=== PATIENT | male | born 1965 | race Caucasian/White ===

== ENCOUNTER 2017-10-24 14:34 | Emergency (ER) | payer OTHER ==
[2017-10-24 14:35] VITALS: PULSE 81; BMI 25.9
[2017-10-24 14:46] VITALS: BP 120/62; PULSE 76; RESP 16; TEMP 98.8; O2SAT 99
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
--- NOTE | 2017-10-24 17:49 | CT ---
PROCEDURE: CT HEAD WITHOUT CONTRAST. HISTORY: head injury r/o ich COMPARISON: None available. TECHNIQUE: Axial computed tomography images were obtained through the head/brain without intravenous contrast. Radiation dose: Total exam DLP = 793.90 mGy-cm. This CT exam was performed using one or more of the following dose reduction techniques: Automated exposure control, adjustment of the mA and/or kV according to patient size, and/or use of iterative reconstruction technique. FINDINGS: HEMORRHAGE: No intracranial hemorrhage. BRAIN: No mass effect or edema. Intracranial atherosclerosis. The menezes-white matter differentiation appears intact. Please note that MRI with diffusion imaging is more sensitive in the detection of acute ischemic event. VENTRICLES: No hydrocephalus. CALVARIUM: Unremarkable. PARANASAL SINUSES: Unremarkable as visualized. No significant inflammatory changes. MASTOID AIR CELLS: Unremarkable as visualized. No inflammatory changes. OTHER FINDINGS: None. IMPRESSION: No acute intracranial pathology identified.
== END 2017-10-24 18:03 | disposition home or self-care (01) ==
LOC: ED 14:34
DX: S09.90XA Unspecified injury of head, initial encounter (principal); V49.9XXA Car occupant (driver) (passenger) injured in unspecified traffic accident, initial encounter; E11.9 Type 2 diabetes mellitus without complications; J44.9 Chronic obstructive pulmonary disease, unspecified; Z95.0 Presence of cardiac pacemaker; Z87.891 Personal history of nicotine dependence

== ENCOUNTER 2017-11-19 17:34 | Inpatient (IN) | payer OTHER ==
[2017-11-19 17:41] VITALS: BMI 27.4
[2017-11-19] MEDS ORDERED: Magnesium Sulfate 1 gm in D5W 1 GM/100 ML BAG IVPB ONE (17:46)
--- NOTE | 2017-11-19 17:52 | ED PDOC ---
Arrival/HPI - General Chief Complaint: Shortness Of Breath Time Seen by Provider: 11/19/17 17:37 Historian: Patient, Spouse - History of Present Illness Narrative History of Present Illness (Text): 11/19/17 1749 pt p/w + sudden onset of sob/wheezing, extremely fatigued/tired; pt was found by spouse just prior to ED arrival with profuse sweating/rapid breathing and poor skin discoloration; pt awoke this morning with some weakness; states this afternoon with sudden onset of severe sob/wheezing; pt has had similar symptoms in the past; pt also noted b/l leg swelling, over the last 1-2 weeks; no fever/ chills, no cp/palpitations, no abd pain, no n/v, no numbness/tingling, no urinary/bowel changes, no rashes, no fall/trauma/sick contact, no travel; pt is here for further eval; pt's without other complaints. PCP: Dr Vickers cardiac disorder - 5 vessel bypass; valve replacement aicd/pacemaker pt had been intubated in the past Time/Duration: Prior to Arrival Symptom Onset: Sudden Symptom Course: Worsening Quality: Other (NO PAIN) Severity Level: Severe Activities at Onset: Rest Context: Home Past Medical History - Provider Review Nursing Documentation Reviewed: Yes - Travel History Have you recently traveled outside [place] w/in the past 3 mons?: No - Past History Past History: No Previous - Infectious Disease Hx of Infectious Diseases: None - Reproductive Currently Lactating: No - Cardiac Hx Cardiac Disorders: Yes Hx Pacemaker: Yes - Pulmonary Hx Respiratory Disorders: Yes Hx Asthma: No Hx Bronchitis: No Hx Chronic Obstructive Pulmonary Disease (COPD): Yes Hx Emphysema: No Hx Pneumonia: Yes Hx Respiratory Aspiration: No Hx Sleep Apnea: No Hx Tuberculosis: No - Neurological Hx Neurological Disorder: No Hx Alzheimer's Disease: No HX Cerebrovascular Accident: No Hx Dementia: No Hx Dizziness: No Hx Meningitis: No Hx Migraine: No Hx Parkinson's Disease: No Hx Seizures: No Hx Transient Ischemic Attacks (TIA): No - HEENT Hx HEENT Disorder: No Hx Blind: No Hx Cataracts: No Hx Deafness: No Hx Difficulty Chewing: No Hx Epistaxis: No Hx Glaucoma: No Hx Macular Degeneration: No - Renal Hx Dialysis: No Hx Kidney Stones: No Hx Neurogenic Bladder: No Hx Pyelonephritis: No Hx Renal Cancer: No Hx Renal Failure: No - Endocrine/Metabolic Hx Endocrine Disorders: Yes Hx Adrenal Cancer: No Hx Diabetes Insipidus: No Hx Diabetes Mellitus Type 1: No Hx Diabetes Mellitus Type 2: Yes Hx Hyperthyroidism: No Hx Hypothyroidism: No Hx Systemic Lupus Erythematosus: No - Hematological/Oncological Hx Blood Disorders: No Hx AIDS: No Hx Anemia: No Hx Cancer: No Hx Chemotherapy: No Hx Cirrhosis: No Hx Hemophilia: No Hx Hepatitis A: No Hx Hepatitis B: No Hx Hepatitis C: No Hx Metastasis: No Hx Shingles: No Hx Sickle Cell Disease: No Hx Unexplained Bleeding: No - Integumentary Hx Dermatological Disorder: No Hx Basal Cell Carcinoma: No Hx Eczema: No Hx Melanoma: No Hx Psoriasis: No Hx Squamous Cell Carcinoma: No - Musculoskeletal/Rheumatological Hx Musculoskeletal Disorders: Yes Hx Arthritis: No Hx Back Pain: No Hx Degenerative Joint Disease: No Hx Falls: Yes Hx Fractures: Yes Hx Gout: No Hx Herniated Disk: No Hx Myasthenia Gravis: No Hx Osteoarthritis: No Hx Osteomyelitis: No Hx Osteoporosis: No Hx Rhabdomyolysis: No Hx Spinal Stenosis: No Hx Unsteady Gait: Yes - Gastrointestinal Hx Gastrointestinal Disorders: No Hx Colostomy: No Hx Crohn's Disease: No Hx Diverticulitis: No Hx Gall Bladder Disease: No Hx Gastroesophageal Reflux: No Hx Gastrointestinal Ulcer: No Hx Ileostomy: No Hx Liver Failure: No Hx Pancreatitis: No HX Swallowing Problems: No - Genitourinary/Gynecological Hx Genitourinary Disorders: No Hx Hematuria: No Hx Incontinence: No Hx Prostate Problems: No Hx Sexually Transmitted Diseases: No Hx Urinary Tract Infection: No - Psychiatric Hx Psychophysiologic Disorder: No Hx Anxiety: No Hx Bipolar Disorder: No Hx Depression: No Hx Emotional Abuse: No Hx Hallucinations: No Hx Panic Disorder: No Hx Post Traumatic Stress Disorder: No Hx Psychosis: No Hx Physical Abuse: No Hx Schizophrenia: No Hx Sexual Abuse: No Hx Substance Use: No - Past Surgical History Past Surgical History: No Previous - Surgical History Hx Amputation: No Hx Appendectomy: No Hx Cholecystectomy: No Hx Gastric Bypass Surgery: No Hx Hysterectomy: No Hx Joint Replacement: No Hx Kidney Transplant: No Hx Liver Transplant: No Hx Mastectomy: No Hx Musculoskeletal Surgery: No Hx Open Heart Surgery: Yes Hx Orthopedic Surgery: No Hx Splenectomy: No Hx Valve Replacement: Yes - Anesthesia Hx Anesthesia: Yes Hx Anesthesia Reactions: No Hx Malignant Hyperthermia: No - Suicidal Assessment Feels Threatened In Home Enviroment: No Family/Social History - Physician Review Nursing Documentation Reviewed: Yes Family/Social History: No Known Family HX Smoking Status: Former Smoker Hx Alcohol Use: No Hx Substance Use: No Hx Substance Use Treatment: No Allergies/Home Meds Allergies/Adverse Reactions: Allergies No Known Allergies Allergy (Verified 11/19/17 18:04) Home Medications: Home Meds Medication Instructions Recorded Confirmed Insulin Lispro [Humalog] 20 units SC TID 11/18/15 11/19/17 Simvastatin 20 mg PO HS 11/18/15 11/19/17 Enalapril Maleate [Vasotec] 2.5 mg PO BID 11/19/17 11/19/17 Insulin Glargine, Recombina 20 unit SC 11/19/17 11/19/17 [Lantus] Review of Systems - Review of Systems Constitutional: Fatigue Eyes: Normal ENT: Normal Respiratory: SOB, Wheezing, Other (rales) Cardiovascular: absent: Chest Pain Gastrointestinal: Normal Genitourinary Male: Normal Musculoskeletal: Normal Skin: Normal Neurological: Dizziness, Other (weakness). absent: Headache Endocrine: Normal Hemo/Lymphatic: Normal Psychiatric: Normal Physical Exam Vital Signs Reviewed: Yes (hypoxia) Vital Signs Pulse Resp BP Pulse Ox 11/19/17 19:20 81 14 111/63 100 11/19/17 18:34 87 13 111/62 100 11/19/17 18:07 129/78 11/19/17 18:05 87 19 122/72 100 11/19/17 17:34 91 H 22 129/78 100 Blood Pressure: Normal Pulse: Tachycardic Respiratory Rate: Other (on bipap now) Appearance: Positive for: Ill-Appearing, Uncomfortable, Other (poor coloration, alert/awake, non-verbal due to resp distress, + severe resp distress noted, uncomfortable, cooperative, follows command with ease) Pain Distress: None Mental Status: Positive for: Alert and Oriented X 3 - Systems Exam Head: Present: Atraumatic, Normocephalic Pupils: Present: PERRL, Other (no nystagmus, no photophobia, sclera anicteric) Extroacular Muscles: Present: EOMI Conjunctiva: Present: Normal Ears: Present: Normal Mouth: Present: Other (no drooling/stridor, uvual/tongue are midline, no exudate /lesions, fair dentitions) Pharnyx: Present: Normal Nose (External): Present: Atraumatic Nose (Internal): Present: Normal Inspection Neck: Present: Normal Range of Motion, JVD, Trachea Midline, Other (intact ROM, no midline tenderness, no nuchal rigidity, no meningeal signs, no step off). No : MIDLINE TENDERNESS Respiratory/Chest: Present: Respiratory Distress, Accessory Muscle Use, Other ( + tachypenia, + wheezing b/l, + rales/wheezing b/l up to 1/3 of the lungs, + accessory muscle use noted, mild belly retractions noted, no rhonchi noted). No : Good Air Exchange Cardiovascular: Present: Normal S1, S2, Other (+ tachycardia, no regurgitation) . No: Murmurs Abdomen: Present: Normal Bowel Sounds, Other (well nourished male, no focal tenderness, no caputo's sign, no mcburney's point tenderness, no masses/rebound/ guarding/rigidity) Back: Present: Normal Inspection. No: Midline Tenderness Upper Extremity: Present: Normal Inspection, Normal ROM, NORMAL PULSES, Neurovascularly Intact, Other (moving b/l arms with ease, strength 5/5 grossly intact b/l) Lower Extremity: Present: Normal Inspection, Edema (+2/5 pitting edema left lower ext >> right, up to mid tib-fib; neurovasc intact b/l, strength 5/5 grossly intact in all limbs, no scotty's sign b/l). No: Scotty's Sign Neurological: Present: GCS=15, CN II-XII Intact, Speech Normal Skin: Present: Warm, Diaphoretic, Other (slight pallor, profuse diaphoretic, cap refill ~ 1-2 sec, no ulcerations, no petechiae). No: Normal Color Psychiatric: Present: Alert, Oriented x 3 Medical Decision Making ED Course and Treatment: 11/19/17 17:49 Impression: shortness of breath i have consider all the differential diagnosis regarding pt's chief medical complaints/clinical findings, including but are not limited to: acute sob; r/o CHF, r/o ACS, r/o infxn A/P: acute sob - labs - iv - acs eval - observe - supportive care 11/19/17 18:05 ICU attending paged/contacted, Dr Cifuentes, made aware, will see patient; likely will accept patient to ICU for admission 1900 pt is much improved appearing pt remains on the BiPAP, tolerating it with ease, pt is comfortable, NO resp distress noted pt is now able to speak in full sentences lung re-exam: basiliar wheezing/rales noted b/l, no accessory muscle use noted, no tachypenia skin: improved coloration is noted, cap refill < 1sec pt remained chest pain free 11/19/17 19:25 pt is made aware of his medical results agrees with admission I 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 Patient is more comfortable and is able to speak full sentences. He denies any chest pain at this time. ) Reassessment Condition: Re-examined, Improved - Critical Care Critical Care Minutes: 60 minutes Critical Care Time: Excluding Proc Time Narrative Critical Care (Text): 11/19/17 19:52 critical care time: 60min, excluding procedure time, excluding time teaching residents/students/mid-level providers; including initial eval/diagnosis, diagnostic interpretation, re-eval, consultations, final disposition - Lab Interpretations Lab Results: 11/19/17 17:56 11/19/17 17:56 Lab Results 11/19/17 18:47: Urine Color Yellow, Urine Appearance Clear, Urine pH 6.0, Ur Specific Sylva 1.015, Urine Protein Trace H, Urine Glucose (UA) >=1000, Urine Ketones Negative, Urine Blood Trace-lysed H, Urine Nitrate Negative, Urine Bilirubin Negative, Urine Urobilinogen 0.2, Ur Leukocyte Esterase Negative, Urine RBC 0 - 2, Urine WBC 0 - 2 11/19/17 18:06: pCO2 41, pO2 190.0 H, HCO3 21.1, ABG pH 7.32 L, ABG Total CO2 22.4, ABG O2 Saturation 97.8, ABG O2 Content 16.3, ABG Base Excess -4.7 L, ABG Hemoglobin 11.6 L, ABG Carboxyhemoglobin 0.4 L, POC ABG HHb (Measured) 2.2, ABG Methemoglobin 0.0, ABG O2 Capacity 16.7, Hgb O2 Saturation 97.3, FiO2 100.0 11/19/17 17:56: Digoxin 1.2 11/19/17 17:56: Sodium 137, Potassium 5.0, Chloride 100, Carbon Dioxide 19 L, Anion Gap 23 H, BUN 35 H, Creatinine 1.5, Est GFR ( Amer) 60, Est GFR ( Non-Af Amer) 49, Random Glucose 404 H* D, Calcium 9.7, Total Bilirubin 0.4, AST 33, ALT 39, Alkaline Phosphatase 122, Lactate Dehydrogenase 581, Total Creatine Kinase 124, Troponin I 0.05 D, NT-Pro-B Natriuret Pep 963 H, Total Protein 8.1 , Albumin 4.6, Globulin 3.6, Albumin/Globulin Ratio 1.3 11/19/17 17:56: PT 10.8, INR 0.95, APTT 28.6 11/19/17 17:56: WBC 17.5 H D, RBC 4.94, Hgb 12.8 L, Hct 39.3 L, MCV 79.6 L, MCH 25.9, MCHC 32.6, RDW 14.6 H, Plt Count 296, MPV 9.7, Gran % 74.5 H, Lymph % ( Auto) 17.6 L, [place] % (Auto) 6.1 H, Eos % (Auto) 1.4 L, Baso % (Auto) 0.4, Gran # 13.01 H, Lymph # (Auto) 3.1, Child[place] # (Auto) 1.1 H, Eos # (Auto) 0.2, Baso # ( Auto) 0.07 I have reviewed the lab results: Yes Interpretation: Abnormal lab values (elevated WBCs, elevated GLUC; elevated BNP) - RAD Interpretation Narrative RAD Interpretations (Text): 11/19/17 18:30 Chest X-ray: Creator : True Palacios MD COMPARISON:Portable chest 07/10/2016 FINDINGS: LUNGS:Patchy airspace disease not excluded at the medial bilateral bases. This may be a function of CHF rather than true infiltrate. PLEURA:No significant pleural effusion identified, no pneumothorax apparent. CARDIOVASCULAR:Cardiomegaly stable with permanent cardiac pacemaker/AICD again evident. Sternotomy wires are again noted as well as additional post CABG surgical clips. Moderate pulmonary venous congestion is identified compatible CHF. OSSEOUS STRUCTURES:No significant abnormalities. VISUALIZED UPPER ABDOMEN:Normal. OTHER FINDINGS:None. IMPRESSION: Moderate active CHF in the interval. Underlying infiltrates are not excluded at the bases. Clinical correlation and radiographic follow-up are advised. Radiology Orders: 11/19/17 17:45 CHEST PORTABLE [RAD] [employer] Operations Manager: Radiologist - EKG Interpretation EKG Interpretation (Text): 11/19/17 17:50 Sinus tach at 110 bpm, RAD, poor baseline, atrial ectopy, non-specific st-t changes, ABNL EKG; no gross changes compare with old ekg 06/2016 Interpreted by ED Physician: Yes Type: 12 lead EKG Comparison: Similar to previous EKG - Medication Orders Current Medication Orders: Discontinued Medications Albuterol/Ipratropium (Duoneb 3 Mg/0.5 Mg (3 Ml) Ud) 3 ml IH Q15M CHANDNI Stop: 11/19/17 18:31 Last Admin: 11/19/17 18:07 Dose: 3 ml Furosemide (Lasix) 60 mg IVP STAT STA Stop: 11/19/17 17:45 Last Admin: 11/19/17 18:07 Dose: 60 mg MAR Blood Pressure Document 11/19/17 18:07 SRE (Rec: 11/19/17 18:08 SRE [id number]) Blood Pressure Blood Pressure (100/60-150/90) 129/78 IVP Administration Document 11/19/17 18:07 SRE (Rec: 11/19/17 18:08 SRE [id number]) Charges for Administration # of IVP Administrations 1 Furosemide (Lasix) 40 mg IVP STAT STA Stop: 11/19/17 18:01 Magnesium Sulfate/Dextrose (Magnesium Sulfate 1 Gm/100 Ml D5w) 1 gm in 100 mls @ 100 mls/hr IVPB ONCE ONE Stop: 11/19/17 18:45 Last Admin: 11/19/17 18:01 Dose: 100 mls/hr eMAR Start Stop Document 11/19/17 18:01 SRE (Rec: 11/19/17 18:01 SRE [id number]) Intravenous Solution Start Date 11/19/17 Start Time 18:01 End Date 11/19/17 End time 18:00 Total Infusion Time -1 Insulin Human Regular (Humulin R) 10 units IVP ONCE ONE Stop: 11/19/17 18:46 Last Admin: 11/19/17 19:25 Dose: 10 units MAR Blood Glucose Document 11/19/17 19:25 AD (Rec: 11/19/17 19:25 AD [id number]) Blood Glucose Finger Stick Blood Glucose (70-120) 404 IVP Administration Document 11/19/17 19:25 AD (Rec: 11/19/17 19:25 AD [id number]) Charges for Administration # of IVP Administrations 1 Methylprednisolone (Solu-Medrol) 125 mg IVP STAT STA Stop: 11/19/17 17:47 Last Admin: 11/19/17 18:01 Dose: 125 mg IVP Administration Document 11/19/17 18:01 SRE (Rec: 11/19/17 18:01 SRE [id number]) Charges for Administration # of IVP Administrations 1 Nitroglycerin (Nitrostat Sl Tab) 0.4 mg SL STAT STA Stop: 11/19/17 17:45 Last Admin: 11/19/17 18:02 Dose: 0.4 mg - Scribe Statement The provider has reviewed the documentation as recorded by the Saumya Rutledge Provider Scribe Attestation: All medical record entries made by the Saumya were at my direction and personally dictated by me. I have reviewed the chart and agree that the record accurately reflects my personal performance of the history, physical exam, medical decision making, and the department course for this patient. I have also personally directed, reviewed, and agree with the discharge instructions and disposition. Disposition/Present on Arrival - Present on Arrival Any Indicators Present on Arrival: No History of DVT/PE: No History of Uncontrolled Diabetes: No Urinary Catheter: No History Surgical Site Infection Following: None - Disposition Have Diagnosis and Disposition been Completed?: Yes Diagnosis: Acute CHF (congestive heart failure), Uncontrolled diabetes mellitus, Acute respiratory distress Diagnosis: (Ruled Out): Acute respiratory disease Disposition: HOSPITALIZED Disposition Time: 17:59 Patient Plan: Admission, ICU Patient Problems: Current Active Problems Problem Status Onset Acute CHF (congestive heart failure) Acute Acute respiratory distress Acute Uncontrolled diabetes mellitus Acute Condition: FAIR Discharge Instructions (ExitCare): Heart Failure (ED) Referrals: Franko Hansen MD [Primary Care Provider] - Follow up with primary Forms: [employer] (Uzbek)
[2017-11-19] MEDS: Albuterol-Ipratrop 3 mg / 0.5 (3 ml) UD IH SCH ×2 (18:00→18:07)
[2017-11-19 18:06] LABS: BASO # 0.07 K/mm3 (0.0-2.0); BASO % 0.4 % (0.0-3.0); EOS # 0.2 (0.0-0.7); EOS % 1.4 % (1.5-5.0); GRAN # 13.01 (1.4-6.5); GRAN % 74.5 % (50.0-68.0); HEMOGLOBIN 12.8 g/dL (14.0-18.0); LYMPH # 3.1 (1.2-3.4); LYMPH % 17.6 % (22.0-35.0); MEAN CELL VOLUME 79.6 fl (80.0-105.0); MEAN CORPUSCULAR HEMOGLOBIN 25.9 pg (25.0-35.0); MEAN CORPUSCULAR HGB CONC 32.6 g/dl (31.0-37.0); MEAN PLATELET VOLUME 9.7 fl (7.0-11.0); MONO # 1.1 (0.1-0.6); MONO % 6.1 % (1.0-6.0); RBC 4.94 10^6/uL (3.5-6.1); RED CELL DISTRIBUTION WIDTH 14.6 % (11.5-14.5); WHITE BLOOD COUNT 17.5 10^3/ul (4.5-11.0)
[2017-11-19 18:09] LABS: ARTERIAL BLOOD GAS HCO3 21.1 mmol/L (21-28); ARTERIAL BLOOD GAS HEMOGLOBIN 11.6 g/dL (11.7-17.4); ARTERIAL BLOOD GAS O2 CAPACITY 16.7 mL/dl (16-24); ARTERIAL BLOOD GAS O2 CONTENT 16.3 ML/dl (15-23); ARTERIAL BLOOD GAS O2 SAT 97.8 % (95-98); ARTERIAL BLOOD GAS PCO2 41 mm/Hg (35-45); ARTERIAL BLOOD GAS PH 7.32 (7.35-7.45); ARTERIAL BLOOD GAS TCO2 22.4 mmol.L (22-28)
[2017-11-19 18:17] LABS: PROTHROMBIN TIME 10.8 SECONDS (9.4-12.5)
[2017-11-19 18:18] LABS: INR 0.95 (0.93-1.08); PARTIAL THROMBOPLASTIN TIME 28.6 Seconds (25.1-36.5)
--- NOTE | 2017-11-19 18:27 | RAD ---
HISTORY: acute sob COMPARISON: Portable chest 07/10/2016 FINDINGS: LUNGS: Patchy airspace disease not excluded at the medial bilateral bases. This may be a function of CHF rather than true infiltrate. PLEURA: No significant pleural effusion identified, no pneumothorax apparent. CARDIOVASCULAR: Cardiomegaly stable with permanent cardiac pacemaker/AICD again evident. Sternotomy wires are again noted as well as additional post CABG surgical clips. Moderate pulmonary venous congestion is identified compatible CHF. OSSEOUS STRUCTURES: No significant abnormalities. VISUALIZED UPPER ABDOMEN: Normal. OTHER FINDINGS: None. IMPRESSION: Moderate active CHF in the interval. Underlying infiltrates are not excluded at the bases. Clinical correlation and radiographic follow-up are advised.
[2017-11-19 18:40] LABS: ALB/GLOB RATIO 1.3 (1.1-1.8); ALBUMIN 4.6 g/dL (3.0-4.8); CALCIUM 9.7 mg/dL (8.4-10.5)
[2017-11-19] MEDS ORDERED: Insulin Regular 1 UNITS/0.01 ML ML IVP ONE (18:45)
[2017-11-19 18:48] LABS: TROPONIN I 0.05 ng/mL
[2017-11-19 19:03] LABS: URINE BILIRUBIN NEGATIVE (NEGATIVE); URINE BLOOD TRACE-LYSED (NEGATIVE); URINE GLUCOSE (UA) >=1000 mg/dL (NEGATIVE); URINE LEUKOCYTE ESTERASE NEGATIVE Leu/uL (NEGATIVE); URINE PROTEIN TRACE mg/dL (<30 mg/dL); URINE UROBILINOGEN 0.2 E.U./dL (<1 E.U./dL)
[2017-11-19 19:05] LABS: URINE APPEARANCE CLEAR (CLEAR); URINE COLOR YELLOW (YELLOW)
[2017-11-19 19:13] LABS: URINE RBC 0 - 2 /hpf (0-2); URINE WBC 0 - 2 /hpf (0-6)
[2017-11-19] MEDS ORDERED: Albuterol-Ipratrop 3 mg / 0.5 (3 ml) UD IH PRN (20:05)
--- NOTE | 2017-11-19 20:21 | CP.PCM.HP ---
<NaomyGraciela - Last Filed: 11/19/17 20:12> History of Present Illness - History of Present Illness History of Present Illness: H&P for Hospitalist, Collin Moralez PGY2 This is a 52yo male with past medical history of HTN, IDDM, ischemic cardiomyopathy, CAD s/p CABG 5 vessel dz in 08/2015, s/p mitral valve annuloplasty 08/2015 who came into ED for sudden onset of shortness of breath. Patient states that he saw his PMD, Dr. Hansen today because he felt as though his Lasix was not working. He was feeling more short of breath and noticed increased swelling in his legs. Dr. Hansen gave him a prescription for Zaroxolyn. When patient left the office and went in the car he began to feel very short of breath with diaphoresis and decided to come to the ED. He denies having any chest pain, nausea/vomiting/diarrhea, recent travel, sick contacts, numbness/tingling, fever or chills. In the ED patient was noted to be in respiratory distress. He was given Lasix and placed on Bipap and improved. EKG showed NSR and CXR showed pulm vasc congestion, but pneumonia cannot be ruled out. Patient denies any cough, sputum production, or sore throat. Past medical history: as above Past surgical history: Pacemaker, CABG, MV repair, Tracheostomy and reversal, peg tube x 2 and removal x 2. Medical history: As per MAR Allergies: NKDA Social history: Former heavy smoker, occasional alcohol use. Lives with and does not work Family history: Denies history of sudden cardiac in family. Hx of HTN and DM PMD: Dr. Hansen Patient Observer: Dr. Kenny Present on Admission - Present on Admission Any Indicators Present on Admission: No Review of Systems - Constitutional Constitutional: absent: Chills, Fever - EENT Eyes: absent: Blurred Vision, Change in Vision Ears: absent: Dizziness Nose/Mouth/Throat: absent: Nasal Congestion, Nasal Discharge, Sinus Pain, Dysphagia, Throat Swelling - Cardiovascular Cardiovascular: Diaphoresis, Leg Edema. absent: Chest Pain, Palpitations, Syncope - Respiratory Respiratory: Dyspnea. absent: Cough, Hemoptysis, Wheezing, Pain on Inspiration , Excessive Mucous Production, Change in Mucous Color - Gastrointestinal Gastrointestinal: absent: Abdominal Pain, Diarrhea, Nausea, Vomiting - Genitourinary Genitourinary: absent: Dysuria, Hematuria - Musculoskeletal Musculoskeletal: absent: Arthralgias, Myalgias, Numbness, Tingling - Integumentary Integumentary: absent: Change in Hair, Change in Nails, Changing Lesions - Neurological Neurological: absent: Dizziness, Syncope, Tingling, Vertigo, Weakness - Psychiatric Psychiatric: absent: Anxiety, Depression - Endocrine Endocrine: absent: Change in Body Appearance, Cold Intolorance, Heat Intolorance Past Patient History - Infectious Disease Hx of Infectious Diseases: None - Past Social History Smoking Status: Former Smoker - CARDIAC Hx Cardiac Disorders: Yes Hx Pacemaker: Yes - PULMONARY Hx Respiratory Disorders: Yes Hx Asthma: No Hx Bronchitis: No Hx Chronic Obstructive Pulmonary Disease (COPD): Yes Hx Emphysema: No Hx Pneumonia: Yes Hx Respiratory Aspiration: No Hx Sleep Apnea: No Hx Tuberculosis: No - NEUROLOGICAL Hx Neurological Disorder: No Hx Alzheimer's Disease: No HX Cerebrovascular Accident: No Hx Dementia: No Hx Dizziness: No Hx Meningitis: No Hx Migraine: No Hx Parkinson's Disease: No Hx Seizures: No Hx Transient Ischemic Attacks (TIA): No - HEENT Hx HEENT Problems: No Hx Blind: No Hx Cataracts: No Hx Deafness: No Hx Difficulty Chewing: No Hx Epistaxis: No Hx Glaucoma: No Hx Macular Degeneration: No - RENAL Hx Dialysis: No Hx Kidney Stones: No Hx Neurogenic Bladder: No Hx Pyelonephritis: No Hx Renal (Kidney) Cancer: No Hx Renal Failure: No - ENDOCRINE/METABOLIC Hx Endocrine Disorders: Yes Hx Adrenal Cancer: No Hx Diabetes Insipidus: No Hx Diabetes Mellitus Type 1: No Hx Diabetes Mellitus Type 2: Yes Hx Hyperthyroidism: No Hx Hypothyroidism: No Hx Systemic Lupus Erythematosus: No - HEMATOLOGICAL/ONCOLOGICAL Hx Blood Disorders: No Hx AIDS: No Hx Anemia: No Hx Cancer: No Hx Chemotherapy: No Hx Cirrhosis: No Hx Hemophilia: No Hx Hepatitis A: No Hx Hepatitis B: No Hx Hepatitis C: No Hx Metastesis: No Hx Shingles: No Hx Sickle Cell Disease: No Hx Unexplained Bleeding: No - INTEGUMENTARY Hx Dermatological Problems: No Hx Basil Cell: No Hx Eczema: No Hx Melanoma: No Hx Psoriasis: No Hx Squamous Cell: No - MUSCULOSKELETAL/RHEUMATOLOGICAL Hx Musculoskeletal Disorders: Yes Hx Arthritis: No Hx Back Pain: No Hx Degenerative Joint Disease: No Hx Falls: Yes Hx Fractures: Yes Hx Gout: No Hx Herniated Disk: No Hx Myasthenia Gravis: No Hx Osteoarthritis: No Hx Osteomyelitis: No Hx Osteoporosis: No Hx Rhabdomyolysis: No Hx Spinal Stenosis: No Hx Unsteady Gait: Yes - GASTROINTESTINAL Hx Gastrointestinal Disorders: No Hx Colostomy: No Hx Crohn's Disease: No Hx Diverticulitis: No Hx Gall Bladder Disease: No Hx Gastroesophageal Reflux: No Hx Ileostomy: No Hx Liver Failure: No Hx Pancreatitis: No HX Swallowing Problems: No - GENITOURINARY/GYNECOLOGICAL Hx Genitourinary Disorders: No Hx Hematuria: No Hx Incontinence: No Hx Prostate Problems: No Hx Sexually Transmitted Disorders: No Hx Urinary Tract Infection: No - PSYCHIATRIC Hx Psychophysiologic Disorder: No Hx Anxiety: No Hx Bipolar Disorder: No Hx Depression: No Hx Emotional Abuse: No Hx Hallucinations: No Hx Panic Symptoms: No Hx Post Traumatic Stress Disorder: No Hx Psychosis: No Hx Physical Abuse: No Hx Schizophrenia: No Hx Sexual Abuse: No Hx Substance Use: No - SURGICAL HISTORY Hx Amputation: No Hx Appendectomy: No Hx Cholecystectomy: No Hx Gastric Bypass Surgery: No Hx Hysterectomy: No Hx Joint Replacement: No Hx Kidney Transplant: No Hx Liver Transplant: No Hx Mastectomy: No Hx Musculoskeletal Surgery: No Hx Open Heart Surgery: Yes Hx Orthopedic Surgery: No Hx Splenectomy: No Hx Valve Replacement: Yes - ANESTHESIA Hx Anesthesia: Yes Hx Anesthesia Reactions: No Hx Malignant Hyperthermia: No Meds Allergies/Adverse Reactions: Allergies Allergy/AdvReac Type Severity Reaction Status Date / Time No Known Allergies Allergy Verified 11/19/17 18:04 Physical Exam - Constitutional Appears: No Acute Distress - Head Exam Head Exam: ATRAUMATIC, NORMAL INSPECTION, NORMOCEPHALIC - Eye Exam Eye Exam: Normal appearance, PERRL Pupil Exam: NORMAL ACCOMODATION, PERRL - ENT Exam ENT Exam: Mucous Membranes Moist - Respiratory Exam Respiratory Exam: Rales (at bases bilaterally ), NORMAL BREATHING PATTERN. absent: Rhonchi, Wheezes, Respiratory Distress - Cardiovascular Exam Cardiovascular Exam: REGULAR RHYTHM, +S1, +S2. absent: Gallop, Rubs, Systolic Murmur - GI/Abdominal Exam GI & Abdominal Exam: Normal Bowel Sounds, Soft. absent: Mass, Rebound, Rigid, Tenderness - Extremities Exam Extremities exam: Positive for: pedal edema (+ 3 bilaterally ). Negative for: calf tenderness - Neurological Exam Neurological exam: Alert, CN II-XII Intact, Oriented x3 - Psychiatric Exam Psychiatric exam: Normal Affect, Normal Mood - Skin Skin Exam: Dry, Warm Results - Vital Signs Recent Vital Signs: Last Vital Signs Temp Pulse 81 11/19/17 19:20 Resp 14 11/19/17 19:20 BP 111/63 11/19/17 19:20 Pulse Ox 100 11/19/17 19:20 - Labs Result Diagrams: 11/19/17 17:56 11/19/17 17:56 Labs: Laboratory Results - last 24 hr 11/19/17 11/19/17 11/19/17 17:56 17:56 17:56 WBC 17.5 H D RBC 4.94 Hgb 12.8 L Hct 39.3 L MCV 79.6 L MCH 25.9 MCHC 32.6 RDW 14.6 H Plt Count 296 MPV 9.7 Gran % 74.5 H Lymph % (Auto) 17.6 L [place] % (Auto) 6.1 H Eos % (Auto) 1.4 L Baso % (Auto) 0.4 Gran # 13.01 H Lymph # (Auto) 3.1 [place] # (Auto) 1.1 H Eos # (Auto) 0.2 Baso # (Auto) 0.07 PT 10.8 INR 0.95 APTT 28.6 pCO2 pO2 HCO3 ABG pH ABG Total CO2 ABG O2 Saturation ABG O2 Content ABG Base Excess ABG Hemoglobin ABG Carboxyhemoglobin POC ABG HHb (Measured) ABG Methemoglobin ABG O2 Capacity Hgb O2 Saturation FiO2 Sodium 137 Potassium 5.0 Chloride 100 Carbon Dioxide 19 L Anion Gap 23 H BUN 35 H Creatinine 1.5 Est GFR ( Amer) 60 Est GFR (Non-Af Amer) 49 Random Glucose 404 H* D Calcium 9.7 Total Bilirubin 0.4 AST 33 ALT 39 Alkaline Phosphatase 122 Lactate Dehydrogenase 581 Total Creatine Kinase 124 Troponin I 0.05 D NT-Pro-B Natriuret Pep 963 H Total Protein 8.1 Albumin 4.6 Globulin 3.6 Albumin/Globulin Ratio 1.3 Urine Color Urine Appearance Urine pH Ur Specific [place] Urine Protein Urine Glucose (UA) Urine Ketones Urine Blood Urine Nitrate Urine Bilirubin Urine Urobilinogen Ur Leukocyte Esterase Urine RBC Urine WBC Digoxin 11/19/17 11/19/17 11/19/17 17:56 18:06 18:47 WBC RBC Hgb Hct MCV MCH MCHC RDW Plt Count MPV Gran % Lymph % (Auto) [place] % (Auto) Eos % (Auto) Baso % (Auto) Gran # Lymph # (Auto) [place] # (Auto) Eos # (Auto) Baso # (Auto) PT INR APTT pCO2 41 pO2 190.0 H HCO3 21.1 ABG pH 7.32 L ABG Total CO2 22.4 ABG O2 Saturation 97.8 ABG O2 Content 16.3 ABG Base Excess -4.7 L ABG Hemoglobin 11.6 L ABG Carboxyhemoglobin 0.4 L POC ABG HHb (Measured) 2.2 ABG Methemoglobin 0.0 ABG O2 Capacity 16.7 Hgb O2 Saturation 97.3 FiO2 100.0 Sodium Potassium Chloride Carbon Dioxide Anion Gap BUN Creatinine Est GFR ( Amer) Est GFR (Non-Af Amer) Random Glucose Calcium Total Bilirubin AST ALT Alkaline Phosphatase Lactate Dehydrogenase Total Creatine Kinase Troponin I NT-Pro-B Natriuret Pep Total Protein Albumin Globulin Albumin/Globulin Ratio Urine Color Yellow Urine Appearance Clear Urine pH 6.0 Ur Specific [place] 1.015 Urine Protein Trace H Urine Glucose (UA) >=1000 Urine Ketones Negative Urine Blood Trace-lysed H Urine Nitrate Negative Urine Bilirubin Negative Urine Urobilinogen 0.2 Ur Leukocyte Esterase Negative Urine RBC 0 - 2 Urine WBC 0 - 2 Digoxin 1.2 Assessment & Plan - Assessment and Plan (Free Text) Assessment: This is a 52yo male with past medical history of HTN, IDDM, ischemic cardiomyopathy, CAD s/p CABG 5 vessel dz in 08/2015, s/p mitral valve annuloplasty 08/2015 who is admitted for respiratory distress secondary to CHF exacerbation. Plan: 1. Shortness of breath - Most likely secondary to CHF exacerbation, but will rule out ACS due to strong cardiac history - Troponin 0.05, EKG showed NSR. Will trend tropnin - CXR showed pulm vasc congestion v. pneumonia - EKG showed NSR - BNP elevated - Strict I&O, daily weight, fluid restriction - Lasix 40IVP q12, Continue home aldactone - Cardiology consulted - Last echo in 2015 showed EF 30-35% with RSVP of 37mm Hg - Will repeat echo - Bipap at night - Duoneb prn 2. Leukocytosis - Can be reactive v. pneumonia - Afebrile, no sign of infection at this time - Patient also got solumedrol in ED prior to labs which can cause elevated WBC - If patient febrile or WBC trending up will start patient on empiric abx - Will check procalcitonin - Tylenol prn - U/A negative for UTI 3. Hx of HTN - Continue home medications: Coreg, Lisinopril and Aldactone 4. CAD - Continue home meds: Lipitor, Digoxin - Digoxin level normal 5. IDDM - ISS high scale, blood glucose monitor ACHS - Will obtain HgbA1c - Carb consistent/Heart healthy diet Dispo: ICU was consulted and evaluated patient. Patient is speaking full sentences and appears to be comfortable on Bipap. Patient can be admitted to telemetry for further monitoring. Will continue to diurese and monitor closely. Please call ICU for re-evaluation if needed. GI ppx: Protonix DVT ppx: Heparin SC Case seen, discussed and reviewed with attending. Collin Moralez PGY2 - Date & Time Date: 11/19/17 Time: 20:38 <Shashi Lou - Last Filed: 11/20/17 00:46> Results - Vital Signs Recent Vital Signs: Last Vital Signs Temp Pulse 81 11/19/17 22:00 Resp 16 11/19/17 22:00 BP 116/82 11/19/17 22:00 Pulse Ox 100 11/19/17 22:00 - Labs Result Diagrams: 11/19/17 17:56 11/19/17 17:56 Labs: Laboratory Results - last 24 hr 11/19/17 23:33 POC Glucose (mg/dL) 363 H Attending/Attestation - Attestation I have personally seen and examined this patient.: Yes I have fully participated in the care of the patient.: Yes I have reviewed all pertinent clinical information: Yes Notes (Text): 11/20/17 00:46 Patient was seen when he was in the ER. Agree with history , physical examination, assessment and plan.
[2017-11-19] MEDS: Insulin Reg-HIGH-Coverage SC SCH (23:42)
[2017-11-20] MEDS: Insulin Detemir 100 units/ml Vial (Levemir) SC SCH ×2 (02:42→21:38)
[2017-11-20 04:25] LABS: BASO # 0.01 K/mm3 (0.0-2.0); BASO % 0.1 % (0.0-3.0); GRAN # 10.12 (1.4-6.5); GRAN % 92.9 % (50.0-68.0); LYMPH # 0.7 (1.2-3.4); LYMPH % 6.3 % (22.0-35.0); MEAN CELL VOLUME 77.9 fl (80.0-105.0); MEAN CORPUSCULAR HEMOGLOBIN 25.1 pg (25.0-35.0); MEAN CORPUSCULAR HGB CONC 32.3 g/dl (31.0-37.0); MEAN PLATELET VOLUME 9.5 fl (7.0-11.0); MONO # 0.1 (0.1-0.6); MONO % 0.7 % (1.0-6.0); PLATELET COUNT 218 10^3/uL (120.0-450.0); RBC 4.38 10^6/uL (3.5-6.1); RED CELL DISTRIBUTION WIDTH 14.5 % (11.5-14.5); WHITE BLOOD COUNT 10.9 10^3/ul (4.5-11.0)
[2017-11-20 04:32] LABS: PROTHROMBIN TIME 11.3 SECONDS (9.4-12.5)
[2017-11-20 04:33] LABS: INR 0.99 (0.93-1.08)
[2017-11-20 05:15] LABS: ALB/GLOB RATIO 1.3 (1.1-1.8); ALBUMIN 4.2 g/dL (3.0-4.8); CALCIUM 9.9 mg/dL (8.4-10.5); TROPONIN I 0.4 ng/mL
[2017-11-20 05:56] LABS: BAND 7 % (0-2); EOSINOPHIL 1 % (0.0-3.0); LYMPHOCYTE 6 % (22.0-35.0); MONOCYTE 1 % (1.0-6.0); NEUTROPHIL 85 % (50.0-70.0); PLATELET ESTIMATE NORMAL (NORMAL)
[2017-11-20 07:05] VITALS: O2SAT 98
[2017-11-20] MEDS ORDERED: Sod Polystyrene Sulf 15 gm/60 ml Susp PO STA (07:21)
[2017-11-20] MEDS: Insulin Reg-HIGH-Coverage SC SCH ×4 (08:28→23:48)
[2017-11-20 09:30] LABS: HDL CHOLESTEROL 31 mg/dL (29-60)
[2017-11-20 09:41] LABS: LDL CHOLESTEROL 102 mg/dL (0-129)
[2017-11-20] MEDS: Enoxaparin 80 mg Syringe SC SCH (10:04)
[2017-11-20] MEDS: Pantoprazole 40 mg EC Tab PO SCH (10:05)
[2017-11-20] MEDS: Digoxin 250 mcg (0.25 mg) Tab PO SCH (15:20)
--- NOTE | 2017-11-20 16:41 | CP.PCM.PN ---
<Shaq Warnre - Last Filed: 11/20/17 16:23> Subjective - Date & Time of Evaluation Date of Evaluation: 11/20/17 Time of Evaluation: 16:23 - Subjective Subjective: Medicine Progress Note: Patient seen and assessed at bedside. No acute events overnight. He reports that his SOB has significantly improved since admission. He denies any fevers, chills, headache, chest pain, palpitations, wheezing, cough, hemoptysis, abdominal pain, N/V/D/C, urinary changes, skin changes, leg swelling or any numbness/tingling/weakness of any extremity. Objective - Vital Signs/Intake and Output Vital Signs (last 24 hours): Temp Pulse Resp BP Pulse Ox 98.1 F 92 H 19 125/89 98 11/20/17 12:00 11/20/17 12:00 11/20/17 12:00 11/20/17 12:00 11/20/17 06:00 Intake and Output: 11/20/17 11/20/17 06:59 18:59 Intake Total 0 Output Total 800 Balance -800 - Medications Medications: Current Medications Acetaminophen (Tylenol 325mg Tab) 650 mg PO Q6H PRN PRN Reason: Fever >100.4 F Albuterol/Ipratropium (Duoneb 3 Mg/0.5 Mg (3 Ml) Ud) 3 ml IH Q2H PRN PRN Reason: Shortness of Breath Aspirin (Aspirin Chewable) 81 mg PO DAILY [facility] Last Admin: 11/20/17 10:03 Dose: 81 mg Atorvastatin Calcium (Lipitor) 20 mg PO HS [facility] Last Admin: 11/19/17 23:41 Dose: 20 mg Carvedilol (Coreg) 3.125 mg PO BID [facility] Last Admin: 11/20/17 10:03 Dose: 3.125 mg Clopidogrel Bisulfate (Plavix) 75 mg PO DAILY [facility] Last Admin: 11/20/17 10:05 Dose: 75 mg Digoxin (Lanoxin) 0.25 mg PO 1400 [facility] Last Admin: 11/20/17 15:20 Dose: 0.25 mg Enoxaparin Sodium (Lovenox) 70 mg SC Q24H [facility] PRN Reason: Protocol Last Admin: 11/20/17 10:04 Dose: 70 mg Furosemide (Lasix) 40 mg IVP Q12 [facility] Last Admin: 11/20/17 10:04 Dose: 40 mg Insulin Detemir (Levemir) 20 unit SC HS [facility] Last Admin: 11/20/17 02:42 Dose: 20 unit Insulin Human Lispro (Humalog) 20 units SC AC [facility] PRN Reason: Protocol Insulin Human Regular (Humulin R High) 0 units SC ACHS [facility] PRN Reason: Protocol Last Admin: 11/20/17 12:40 Dose: 12 units Lisinopril (Zestril) 2.5 mg PO BID [facility] Last Admin: 11/20/17 10:06 Dose: 2.5 mg Pantoprazole Sodium (Protonix Ec Tab) 40 mg PO DAILY [facility] Last Admin: 11/20/17 10:05 Dose: 40 mg Spironolactone (Aldactone) 25 mg PO DAILY [facility] - Labs Labs: 11/20/17 04:00 11/20/17 04:00 PT 11.3 SECONDS (9.4-12.5) 11/20/17 04:00 INR 0.99 (0.93-1.08) 11/20/17 04:00 APTT 28.6 Seconds (25.1-36.5) 11/19/17 17:56 - Constitutional Appears: Non-toxic, No Acute Distress - Head Exam Head Exam: ATRAUMATIC, NORMOCEPHALIC - Eye Exam Eye Exam: EOMI, Normal appearance Pupil Exam: NORMAL ACCOMODATION, PERRL - ENT Exam ENT Exam: Mucous Membranes Moist, Normal Exam - Neck Exam Neck Exam: Full ROM, Normal Inspection. absent: Lymphadenopathy, Tenderness - Respiratory Exam Respiratory Exam: Rales (B/L lung bases), NORMAL BREATHING PATTERN. absent: Accessory Muscle Use, Chest Wall Tenderness, Decreased Breath Sounds, Clear to Ausculation Bilateral, Prolonged Expiratory Phase, Rhonchi, Wheezes, Respiratory Distress, Stridor - Cardiovascular Exam Cardiovascular Exam: REGULAR RHYTHM, RRR, +S1, +S2. absent: Bradycardia, Tachycardia, Clicks, Diastolic murmur, Gallop, Irregular Rhythm, JVD, Rubs, +S4 , Murmur - GI/Abdominal Exam GI & Abdominal Exam: Soft, Normal Bowel Sounds. absent: Tenderness - Extremities Exam Extremities Exam: Full ROM, Normal Capillary Refill, Normal Inspection. absent : Calf Tenderness, Joint Swelling, Pedal Edema, Tenderness - Back Exam Back Exam: NORMAL INSPECTION - Neurological Exam Neurological Exam: Alert, Awake, CN II-XII Intact, Normal Gait, Oriented x3 - Psychiatric Exam Psychiatric exam: Normal Affect, Normal Mood - Skin Skin Exam: Dry, Intact, Normal Color, Warm Assessment and Plan - Assessment and Plan (Free Text) Assessment: 52 year old male with past medical history significant for HTN, IDDM2, ischemic cardiomyopathy, CAD s/p CABG 5 vessel disease in 08/2015, s/p mitral valve annuloplasty 08/2015 who was admitted for acute decompensated CHF. Plan: 1. Acute Decompensated CHF -Chest X-Ray showed cardiomegaly and PVC consistent with ADCHF -EKG showed NSR 96 beats/min, left posterior fascicular block and nonspecific ST abnormality -Troponins elevated at 0.36, 0.40 and 0.41 -Pro-BNP elevated at 963 -Echocardiogram pending -IV Lasix 40mg Q12 -Lovenox 70mg SC Q24H -Continue home Digoxin and Zestril -Home Aldactone held (Hyperkalemia) -Telemetry monitoring -Strict I&O's and daily weights -Cardiology consulted, all recommendations appreciated 2. History of IDDM2 -Hemoglobin A1c: 9.9 -ISS-High and Accuchecks ACHS -Levemir 20u SC HS -Continue home Humalog 20u AC -Carbohydrate Consistent Diet 3. History of CAD s/p CABG -See EKG findings and troponins above -Continue home ASA, Plavix and Coreg 4. History of COPD -Duonebs and BiPAP PRN GI Prophylaxis: Protonix DVT Prophylaxis: Lovenox Patient seen and case discussed with attending, Dr. Ernesto Luna. <Ernesto Luna - Last Filed: 11/20/17 18:30> Objective - Vital Signs/Intake and Output Vital Signs (last 24 hours): Temp Pulse Resp BP Pulse Ox 98.3 F 88 18 112/60 99 11/20/17 17:41 11/20/17 17:46 11/20/17 17:41 11/20/17 17:46 11/20/17 17:41 Intake and Output: 11/20/17 11/20/17 06:59 18:59 Intake Total 0 Output Total 800 Balance -800 - Medications Medications: Current Medications Acetaminophen (Tylenol 325mg Tab) 650 mg PO Q6H PRN PRN Reason: Fever >100.4 F Albuterol/Ipratropium (Duoneb 3 Mg/0.5 Mg (3 Ml) Ud) 3 ml IH Q2H PRN PRN Reason: Shortness of Breath Aspirin (Aspirin Chewable) 81 mg PO DAILY [facility] Last Admin: 11/20/17 10:03 Dose: 81 mg Atorvastatin Calcium (Lipitor) 20 mg PO HS [facility] Last Admin: 11/19/17 23:41 Dose: 20 mg Carvedilol (Coreg) 3.125 mg PO BID [facility] Last Admin: 11/20/17 17:46 Dose: 3.125 mg Clopidogrel Bisulfate (Plavix) 75 mg PO DAILY [facility] Last Admin: 11/20/17 10:05 Dose: 75 mg Digoxin (Lanoxin) 0.25 mg PO 1400 [facility] Last Admin: 11/20/17 15:20 Dose: 0.25 mg Enoxaparin Sodium (Lovenox) 70 mg SC Q24H [facility] PRN Reason: Protocol Last Admin: 11/20/17 10:04 Dose: 70 mg Furosemide (Lasix) 40 mg IVP Q12 [facility] Last Admin: 11/20/17 10:04 Dose: 40 mg Insulin Detemir (Levemir) 20 unit SC HS [facility] Last Admin: 11/20/17 02:42 Dose: 20 unit Insulin Human Lispro (Humalog) 20 units SC AC [facility] PRN Reason: Protocol Last Admin: 11/20/17 17:44 Dose: 20 units Insulin Human Regular (Humulin R High) 0 units SC ACHS [facility] PRN Reason: Protocol Last Admin: 11/20/17 17:45 Dose: 10 units Lisinopril (Zestril) 2.5 mg PO BID [facility] Last Admin: 11/20/17 17:45 Dose: 2.5 mg Pantoprazole Sodium (Protonix Ec Tab) 40 mg PO DAILY [facility] Last Admin: 11/20/17 10:05 Dose: 40 mg Spironolactone (Aldactone) 25 mg PO DAILY [facility] - Labs Labs: 11/20/17 04:00 11/20/17 04:00 PT 11.3 SECONDS (9.4-12.5) 11/20/17 04:00 INR 0.99 (0.93-1.08) 11/20/17 04:00 APTT 28.6 Seconds (25.1-36.5) 11/19/17 17:56 Attending/Attestation - Attestation I have personally seen and examined this patient.: Yes I have fully participated in the care of the patient.: Yes I have reviewed all pertinent clinical information, including history, physical exam and plan: Yes Notes (Text): I have seen and examined the patient at bedside. Agree with the above note with the following additions/ exceptions: Briefly this is 52 year old male with history of HTN, IDDM2, ischemic cardiomyopathy, CAD s/p CABG 5 vessel disease in 08/2015, s/p mitral valve annuloplasty 08/2015 who was admitted for acute decompensated CHF. CXR confirmed venous congestions. BNP was elevated. Continue IV lasix. Troponins are trending up and patient has MATTHEW as well. Patient denies any chest pain. Discussed with salesperson pets and pet supplies. Patient was started on lovenox and continue aspirin, plavix, coreg digoxin, zestril and lipitor. Echo pending. Hba1c is almost 10. Will adjust his blood sugars. Upon discharge patient will follow up with Dr Hansen. Dr Ernesto Luna
[2017-11-20] MEDS: Insulin Lispro 1 UNITS/0.01 ML SC SCH (17:44)
--- NOTE | 2017-11-20 17:48 | CARD ---
APPROVED REPORT EXAM: Two-dimensional and M-mode echocardiogram with Doppler and color Doppler. INDICATION CP,LVFX,CABG,AF,PTCA 2D DIMENSIONS Left Atrium (2D)5.7 (1.6-4.0cm)IVSd1.2 (0.7-1.1cm) LVDd6.0 (3.9-5.9cm)PWd1.1 (0.7-1.1cm) M-Mode DIMENSIONS Aortic Root3.00 (2.2-3.7cm)Aortic Cusp Exc.1.30 (1.5-2.0cm) Aortic Valve AoV Peak [id number]/sAoV VTI30.7cmAO Peak GR.11mmHg AO Mean GR.7mmHg Mitral Valve MV E Bmluylnp335.0cm/sMV E Peak Gr.33mmHgMV E Mean Gr.13mmHg MV QBV37rxT/A ratio0.0MVA (PHT)3.28cm2 TDI E/Lateral E'0.0E/Medial E'0.0 Pulmonary Valve PV Peak Meshfhuu95.1cm/sPV Peak Grad.2mmHg Tricuspid Valve TR Peak [id number]/sRAP [id number] Peak Gr.56mmHg [id number] LEFT VENTRICLE The Left Ventricle is mildly dilated. There is borderline to mild concentric left ventricular hypertrophy. The systolic function is moderately to severely impaired.EF-25-30% There is moderate hypokinesis in the basal inferolateral wall. Transmitral Doppler flow pattern is Grade III-reversible restrictive diastolic dysfunction. No left ventricle thrombus noted on this study. There is no ventricular septal defect visualized. There is no left ventricular aneurysm. There is no mass noted in the left ventricle. RIGHT VENTRICLE The right ventricle is mildly dilated. There is normal right ventricular wall thickness. Systolic function of RV is mildly reduced. ATRIA The left atrium is moderately dilated. The right atrium is borderline dilated. The interatrial septum is intact with no evidence for an atrial septal defect. AORTIC VALVE The aortic valve is thickened but opens well. No aortic regurgitation is present. There is no aortic valvular stenosis. There is no aortic valvular vegetation. MITRAL VALVE The mitral valve is thickened but opens well. Mitral annular calcification is moderate. Mitral regurgitation is mild to moderate. MVA 3.3 cm2, No MS S/p MV repair TRICUSPID VALVE The tricuspid valve leaflets are thickened , but open well. There is moderate tricuspid regurgitation.RVSP-66 mmof hg There is moderate pulmonary hypertension. There is no tricuspid valve stenosis. There is no tricuspid valve prolapse or vegetation. PULMONIC VALVE The pulmonic valve is borderline thickened. There is trace to mild pulmonic valvular regurgitation. There is no pulmonic valvular stenosis. GREAT VESSELS The aortic root is normal in size. The ascending aorta is normal in size. The pulmonary artery is normal. The IVC is normal in size and collapses >50% with inspiration. PERICARDIAL EFFUSION There is no pleural effusion. There is no pericardial effusion. <Conclusion> The Left Ventricle is mildly dilated. There is borderline to mild concentric left ventricular hypertrophy. The systolic function is moderately to severely impaired.EF-25-30% The right ventricle is mildly dilated. Systolic function of RV is mildly reduced. No aortic regurgitation is present. There is no aortic valvular stenosis. Mitral regurgitation is mild to moderate. S/p MV repair There is moderate tricuspid regurgitation.RVSP-66 mmof hg There is moderate pulmonary hypertension. There is trace to mild pulmonic valvular regurgitation. There is no pericardial effusion. no vegetation noted.
--- NOTE | 2017-11-20 19:29 | CARD ---
APPROVED REPORT EKG Measurement Heart [id number] <Conclusion> Normal sinus rhythm Left posterior fascicular block Possible Inferior infarct, age undetermined Abnormal ECG
--- NOTE | 2017-11-20 19:34 | CARD ---
APPROVED REPORT EKG Measurement Heart [id number] <Conclusion> Normal sinus rhythm Left posterior fascicular block Nonspecific ST abnormality Abnormal ECG
--- NOTE | 2017-11-20 19:44 | CARD ---
APPROVED REPORT EKG Measurement Heart [id number] ME [id number] <Conclusion> Normal sinus rhythm Nonspecific intraventricular block Possible Inferior infarct, age undetermined Cannot rule out Anterior infarct, age undetermined Abnormal ECG
--- NOTE | 2017-11-20 21:18 | CON ---
DATE: SERVICE: Cardiology. REASON FOR THE CONSULTATION AND FOLLOWUP: Decompensated congestive heart failure, coronary artery disease, CABG, status post AICD, status post tracheostomy, status post decannulation, admitted with decompensated congestive heart failure. BRIEF CLINICAL HISTORY: This is a 52-year-old male with past medical history significant for acute code STEMI status post cardiogenic shockm status post intraaortic balloon pump, status post CABG 5-vessels, postop course was very complicated by difficult extubation and a prolonged intubation, status post mitral valve repair and annuloplasty ring, status post AICD, status post a long time patient had been tracheostomy and later on was decannulated, who went yesterday to Dr. Hansen's office because he was not making enough urine and feels short of breath, so Dr. Hansen offered new medication. Patient went to the pharmacy where he got more short of breath, called the ambulance and brought here. A chest x-ray consisted with pulmonary vascular congestion. He was started on IV Lasix, feels a lot better. Denies any chest pain. Denies any palpitation. PAST MEDICAL HISTORY: Significant for coronary artery disease with non-ST elevation myocardial infarction in 07/2015, where the patient had a primary stent to the circumflex and intraaortic balloon pump was placed, who had been in cardiogenic shock and transferred to [facility] where the patient had 5-vessel bypass, had a prolonged intubation, chest left open and then closed with a secondary intention, PEG placement and tracheostomy done. Multiple attempts were made to decannulate, ultimately patient got successfully decannulated, and patient had the AICD done. Most recent cardiac workup as follows: Patient had a MUGA scan done on 10/21/2015, ejection fraction of 40%. Last echo on 10/21/2015, ejection fraction of 40%. Patient had a 5-vessel bypass with MENDOZA was grafted to LAD, saphenous grafted to the diagonal, saphenous grafted to the RCA. The patient subsequently underwent cardiac catheterization on last admission on 06/25/2016, that shows triple vessel disease, SVG to diagonal, patent SVG to RCA, occluded SVG to circ and OM1, occluded MENDOZA, but collateralized from RCA. At that time, plain balloon angioplasty of LAD was done, which is diffusely diseased, ejection fraction of 25% to 30%. SOCIAL HISTORY: Denies any . Denies any history of alcohol abuse. He used to smoke heavy prior to CABG. CURRENT MEDICATIONS: Patient is taking spironolactone, simvastatin, Protonix, insulin, furosemide, enalapril, digoxin, clopidogrel, and carvedilol. PAST SURGICAL HISTORY: Significant for coronary artery bypass surgery, 5 vessel with mitral annuloplasty, when the patient presented with non-STEMI and cardiogenic shock status post AICD, status post mitral valve repair, status post tracheostomy, status post PEG, and reversal of decannulation (decannulation of tracheostomy), removal of the PEG and AICD. ALLERGIES: NO KNOWN DRUG ALLERGIES. REVIEW OF SYSTEMS: As per HPI. PHYSICAL EXAMINATION: VITAL SIGNS: Temperature afebrile, heart rate 95, blood pressure 141/78. HEENT: PERRLA. Extraocular muscles intact. NECK: Supple. No carotid bruits or thyromegaly. CHEST: Clear to auscultation. HEART: S1 and S2, regular. ABDOMEN: Soft. EXTREMITIES: Clubbing and cyanosis negative. LABORATORY DATA: Blood workup as follows: WBC 10.9, hemoglobin 11, hematocrit 34.1, platelet count 218. Chemistry shows sodium 130, potassium 5.2, chloride 99, carbon dioxide 24, anion gap of 21. BUN 44, creatinine 1.5. Troponin of 0.05, 0.34, 0.4. IMPRESSION: Chronic renal insufficiency on acute kidney injury with a creatinine clearance, 40% to 45% clearance; stage 3 chronic kidney disease; positive troponin secondary to underlying coronary artery disease, doubt is a myocardial infarction; diabetes; hypertension; hyperlipidemia; history of ex-smoker; history of coronary artery disease with 5-vessel bypass in 2014. The patient presented with [id number] myocardial infarction, cardiogenic shock status post automatic implantable cardioverter defibrillator, ischemic cardiomyopathy, last catheterization on 06/25/2016, shows a [place] triple vessel disease, occluded saphenous vein graft to circumflex and obtuse marginal 1, patent saphenous vein graft to diagonal, patent saphenous vein graft to right coronary artery and left internal mammary artery occluded, plain balloon angioplasty of left anterior descending was done because could not take the stent, diffuse distal decreased left ventricular function, admitted with decompensated congestive heart failure. RECOMMENDATIONS: We will put Lovenox 1 mg/kg every 24 hours, weight adjusted, but with repeat unstable angina, we are treating medically because of the underlying coronary anatomy. The last time, it was very bad, it was not amenable by PCI. We will get echo to assess LV function. Continue digoxin. Continue Coreg. Continue spironolactone. Continue diuretics. We will follow the troponin and if that trends down, we will treat medically. Discussed with the patient. Continue RAVEN inhibitors. Continue Coreg. We will follow with you. We will get lipid profile also and hemoglobin A1c and TSH. We will hold spironolactone for now because the potassium is elevated. Monitor K and once the K becomes less than 4 we can restart his spironolactone. We will discontinue subq heparin and we will switch over to 1 mg/kg Lovenox until trend down, then we can switch over to DVT prophylaxis, treat his unstable angina for now, but because of the coronary anatomy if the troponin does not go up, we will treat medically. We will add on lipid profile in today's blood. As mentioned, we will get Lovenox 1 mg/kg body weight and also get echo to assess LV function. Thank you, Dr. Ernesto Luna for providing us the opportunity in participating in [employer]. We will discuss with Dr. Ernesto Luna. Ashley Kenny MD
[2017-11-21 06:32] LABS: BASO # 0.04 K/mm3 (0.0-2.0); BASO % 0.3 % (0.0-3.0); EOS # 0.1 (0.0-0.7); EOS % 1.1 % (1.5-5.0); GRAN # 9.15 (1.4-6.5); GRAN % 70.3 % (50.0-68.0); HEMOGLOBIN 10.4 g/dL (14.0-18.0); LYMPH # 2.5 (1.2-3.4); MEAN CORPUSCULAR HEMOGLOBIN 25.4 pg (25.0-35.0); MEAN CORPUSCULAR HGB CONC 31.7 g/dl (31.0-37.0); MEAN PLATELET VOLUME 9.5 fl (7.0-11.0); MONO # 1.2 (0.1-0.6); MONO % 9.3 % (1.0-6.0); RBC 4.1 10^6/uL (3.5-6.1); RED CELL DISTRIBUTION WIDTH 14.9 % (11.5-14.5)
[2017-11-21 06:36] LABS: INR 1.01 (0.93-1.08); PROTHROMBIN TIME 11.6 SECONDS (9.4-12.5)
[2017-11-21 07:09] LABS: ALB/GLOB RATIO 1.2 (1.1-1.8); ALBUMIN 3.8 g/dL (3.0-4.8); CALCIUM 9.5 mg/dL (8.4-10.5)
[2017-11-21] MEDS: Insulin Lispro 1 UNITS/0.01 ML SC SCH ×3 (09:13→17:36)
[2017-11-21] MEDS: Insulin Reg-HIGH-Coverage SC SCH ×4 (09:14→22:22)
[2017-11-21] MEDS: Pantoprazole 40 mg EC Tab PO SCH (09:18)
[2017-11-21] MEDS: Enoxaparin 80 mg Syringe SC SCH (09:18)
--- NOTE | 2017-11-21 13:14 | PN ---
DATE: 11/21/2017 LOCATION: Patient in room 268, bed 1. REASON FOR CONSULTATION AND FOLLOWUP: Decompensated congestive heart failure, coronary artery disease, history of CABG, history of mitral valve repair, history of acute code STEMI, cardiogenic shock, prolonged intubation, tracheostomy, then status post decannulation, status post AICD insertion, and admitted with decompensated congestive heart failure with shortness of breath. SUBJECTIVE: Patient denies any chest pain or palpitation. He states his shortness of breath has been improved. PHYSICAL EXAMINATION: VITAL SIGNS: Blood pressure 121/68, respirations 18, pulse 88, temperature 98.1. HEENT: Head is normocephalic. Eyes: Pupils normal. Conjunctivae normal. NECK: JVP low. Carotids are equal. Thorax: AP diameter normal. LUNGS: A few basilar rales. CARDIOVASCULAR: S1 and S2 ABDOMEN: Soft and nontender. No organomegaly. EXTREMITIES: No clubbing, no cyanosis. LABORATORY DATA: WBC 13, hemoglobin 10.4, hematocrit 32.8, and platelets 218. Sodium 138, potassium 4.2. BUN 54, and creatinine 1.5. Calcium, phosphorous, magnesium normal. Yesterday, troponin 0.41. Patient had an echocardiogram on 11/20/2017, which showed dilated LV, mild concentric left ventricular hypertrophy, decreased LV contractility with EF 25% to 30%, right ventricle mildly dilated, systolic function of RV mildly reduced, [id number] MR status post mitral valve repair with a ring insertion, moderate tricuspid regurgitation with RVSP 66 mmHg suggestive of moderate pulmonary hypertension, trace to mild pulmonic valve regurgitation. DIAGNOSES: Congestive heart failure, acute on chronic left ventricular systolic failure, coronary artery disease, history of coronary bypass surgery, status post mitral valve repair, moderate pulmonary hypertension, status post automatic implantable cardioverter-defibrillator insertion, chronic kidney disease, slightly elevated troponin most likely due to abnormal kidney function, diabetes, hypertension, hyperlipidemia, ex-smoker. Detailed cardiac history mentioned in our consultation of 11/20/2017, with all the detailed previous workup. Repeat cardiac catheterization was done on 06/25/2016, and finding has been described in the note, consult of 11/20, please refer to that. Cardiomyopathy ischemic. Patient is on spironolactone 25 mg daily, aspirin 81 mg daily, ,Coreg 3.125 b.i.d., insulin as ordered, digoxin 0.25 daily, Lasix 40 IV every 12 hours, Lipitor 20 mg daily, Lovenox 70 mg subcutaneous every 24 hours, Plavix 75 daily, Protonix 40 daily, lisinopril 2.5 mg b.i.d. We will continue present therapy and will repeat chest x-ray tomorrow to see improvement of congestive heart failure seen on his admission x-ray. We will follow with you. Ashley Brown MD
[2017-11-21] MEDS: Digoxin 250 mcg (0.25 mg) Tab PO SCH (13:46)
--- NOTE | 2017-11-21 16:09 | CP.PCM.PN ---
<Shaq Warner - Last Filed: 11/21/17 16:06> Subjective - Date & Time of Evaluation Date of Evaluation: 11/21/17 Time of Evaluation: 16:06 - Subjective Subjective: Medicine Progress Note: Patient seen and assessed at bedside. No acute events overnight. He has no complaints at this time. He reports that his SOB has improved and that he slept well overnight. He denies any fevers, chills, headache, chest pain, palpitations , wheezing, cough, hemoptysis, abdominal pain, N/V/D/C, urinary changes, skin changes, leg swelling or any numbness/tingling/weakness of any extremity. Objective - Vital Signs/Intake and Output Vital Signs (last 24 hours): Temp Pulse Resp BP Pulse Ox 99.2 F 88 20 121/74 98 11/21/17 11:53 11/21/17 11:53 11/21/17 11:53 11/21/17 11:53 11/21/17 05:29 Intake and Output: 11/21/17 11/21/17 06:59 18:59 Intake Total 780 Output Total 1900 Balance -1120 - Medications Medications: Current Medications Acetaminophen (Tylenol 325mg Tab) 650 mg PO Q6H PRN PRN Reason: Fever >100.4 F Albuterol/Ipratropium (Duoneb 3 Mg/0.5 Mg (3 Ml) Ud) 3 ml IH Q2H PRN PRN Reason: Shortness of Breath Aspirin (Aspirin Chewable) 81 mg PO DAILY [facility] Last Admin: 11/21/17 09:18 Dose: 81 mg Atorvastatin Calcium (Lipitor) 20 mg PO HS [facility] Last Admin: 11/20/17 21:38 Dose: 20 mg Carvedilol (Coreg) 3.125 mg PO BID [facility] Last Admin: 11/21/17 09:19 Dose: 3.125 mg Clopidogrel Bisulfate (Plavix) 75 mg PO DAILY [facility] Last Admin: 11/21/17 09:19 Dose: 75 mg Digoxin (Lanoxin) 0.25 mg PO 1400 [facility] Last Admin: 11/21/17 13:46 Dose: 0.25 mg Enoxaparin Sodium (Lovenox) 70 mg SC Q24H [facility] PRN Reason: Protocol Last Admin: 11/21/17 09:18 Dose: 70 mg Furosemide (Lasix) 40 mg IVP Q12 [facility] Last Admin: 11/21/17 09:15 Dose: 40 mg Insulin Detemir (Levemir) 20 unit SC HS [facility] Last Admin: 11/20/17 21:38 Dose: 20 unit Insulin Human Lispro (Humalog) 20 units SC AC [facility] PRN Reason: Protocol Last Admin: 11/21/17 12:10 Dose: 20 units Insulin Human Regular (Humulin R High) 0 units SC ACHS [facility] PRN Reason: Protocol Last Admin: 11/21/17 12:09 Dose: 4 units Lisinopril (Zestril) 2.5 mg PO BID [facility] Last Admin: 11/21/17 09:17 Dose: 2.5 mg Pantoprazole Sodium (Protonix Ec Tab) 40 mg PO DAILY [facility] Last Admin: 11/21/17 09:18 Dose: 40 mg Spironolactone (Aldactone) 25 mg PO DAILY [facility] - Labs Labs: 11/21/17 06:00 11/21/17 06:00 PT 11.6 SECONDS (9.4-12.5) 11/21/17 06:00 INR 1.01 (0.93-1.08) 11/21/17 06:00 APTT 28.6 Seconds (25.1-36.5) 11/19/17 17:56 - Constitutional Appears: Non-toxic, No Acute Distress - Head Exam Head Exam: ATRAUMATIC, NORMOCEPHALIC - Eye Exam Eye Exam: EOMI, Normal appearance Pupil Exam: NORMAL ACCOMODATION, PERRL - ENT Exam ENT Exam: Mucous Membranes Moist, Normal Exam - Neck Exam Neck Exam: Full ROM, Normal Inspection. absent: Lymphadenopathy, Tenderness - Respiratory Exam Respiratory Exam: Rales (B/L lung bases with interval improvement noted), NORMAL BREATHING PATTERN. absent: Accessory Muscle Use, Chest Wall Tenderness, Decreased Breath Sounds, Clear to Ausculation Bilateral, Prolonged Expiratory Phase, Rhonchi, Wheezes, Respiratory Distress, Stridor - Cardiovascular Exam Cardiovascular Exam: REGULAR RHYTHM, RRR, +S1, +S2. absent: Bradycardia, Tachycardia, Clicks, Diastolic murmur, Gallop, Irregular Rhythm, JVD, Rubs, +S4 , Murmur - GI/Abdominal Exam GI & Abdominal Exam: Soft, Normal Bowel Sounds. absent: Tenderness - Extremities Exam Extremities Exam: Full ROM, Normal Capillary Refill, Normal Inspection. absent : Calf Tenderness, Joint Swelling, Pedal Edema, Tenderness - Back Exam Back Exam: NORMAL INSPECTION - Neurological Exam Neurological Exam: Alert, Awake, CN II-XII Intact, Normal Gait, Oriented x3 - Psychiatric Exam Psychiatric exam: Normal Affect, Normal Mood - Skin Skin Exam: Dry, Intact, Normal Color, Warm Assessment and Plan - Assessment and Plan (Free Text) Assessment: 52 year old male with past medical history significant for HTN, IDDM2, ischemic cardiomyopathy, CAD s/p CABG 5 vessel disease in 08/2015, s/p mitral valve annuloplasty 08/2015 who was admitted for acute decompensated CHF. Plan: 1. Acute Decompensated CHF -Echocardiogram showed an LVEF of 25-30% with moderate to severe systolic dysfunction and grade-III reversible restrictive diastolic dysfunction -Chest X-Ray showed cardiomegaly and PVC consistent with ADCHF -EKG showed NSR 96 beats/min, left posterior fascicular block and nonspecific ST abnormality -Troponins elevated at 0.36, 0.40 and 0.41 -Pro-BNP elevated at 963 -IV Lasix 40mg Q12 -Lovenox 70mg SC Q24H, which can be switched to DVT prevention dose should troponins downtrend -Continue home Aldactone, Digoxin and Zestril -Telemetry monitoring -Strict I&O's and daily weights -AM Chest X-Ray pending -Cardiology consulted, all recommendations appreciated 2. History of IDDM2 -Hemoglobin A1c: 9.9 -ISS-High and Accuchecks ACHS -Levemir 20u SC HS -Continue home Humalog 20u AC -Carbohydrate Consistent Diet 3. History of CAD s/p CABG -See EKG findings and troponins above -Continue home ASA, Plavix and Coreg 4. History of HLD -Lipid panel reviewed -ASCVD Risk: 10.9% -Moderate intensity dose of Lipitor increased to high intensity dose of 40mg PO daily 5. History of COPD -Duonebs PRN GI Prophylaxis: Protonix DVT Prophylaxis: Lovenox Patient seen and case discussed with attending, Dr. Ernesto Luna. <Ernesto Luna - Last Filed: 11/23/17 10:49> Objective - Vital Signs/Intake and Output Vital Signs (last 24 hours): Temp Pulse Resp BP Pulse Ox 98.6 F 85 20 111/69 98 11/22/17 12:00 11/22/17 14:00 11/22/17 12:00 11/22/17 12:00 11/22/17 06:00 - Labs Labs: 11/22/17 05:30 11/22/17 05:30 PT 11.3 SECONDS (9.4-12.5) 11/22/17 05:30 INR 0.98 (0.93-1.08) 11/22/17 05:30 APTT 28.6 Seconds (25.1-36.5) 11/19/17 17:56 Attending/Attestation - Attestation I have personally seen and examined this patient.: Yes I have fully participated in the care of the patient.: Yes I have reviewed all pertinent clinical information, including history, physical exam and plan: Yes Notes (Text): I have seen and examined the patient at bedside. Agree with the above note with the following additions/ exceptions: Briefly this is 52 year old male with history of HTN, IDDM2, ischemic cardiomyopathy, CAD s/p CABG 5 vessel disease in 08/2015, s/p mitral valve annuloplasty 08/2015 who was admitted for acute decompensated CHF. CXR confirmed venous congestions. BNP was elevated. Continue IV lasix. Troponins are trending down and creatinine is stable. Patient denies any chest pain. 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 Continue aspirin, plavix, coreg digoxin, zestril, lovenox and lipitor. Echo revealed EF 25-30% with grade 3 diastolic dysfunction. Hba1c is almost 10. Blood sugars have improved. Upon discharge patient will follow up with Dr Hansen. Dr Ernesto Luna
[2017-11-21 20:28] VITALS: TEMP 98.6
[2017-11-21] MEDS: Insulin Detemir 100 units/ml Vial (Levemir) SC SCH (22:21)
[2017-11-22 06:29] LABS: BASO # 0.03 K/mm3 (0.0-2.0); BASO % 0.3 % (0.0-3.0); EOS # 0.2 (0.0-0.7); EOS % 1.8 % (1.5-5.0); GRAN # 6.42 (1.4-6.5); GRAN % 64.4 % (50.0-68.0); LYMPH # 2.4 (1.2-3.4); LYMPH % 24.2 % (22.0-35.0); MEAN CELL VOLUME 79.6 fl (80.0-105.0); MEAN CORPUSCULAR HEMOGLOBIN 25.2 pg (25.0-35.0); MEAN CORPUSCULAR HGB CONC 31.7 g/dl (31.0-37.0); MEAN PLATELET VOLUME 9.4 fl (7.0-11.0); MONO # 0.9 (0.1-0.6); MONO % 9.3 % (1.0-6.0); RBC 4.36 10^6/uL (3.5-6.1); RED CELL DISTRIBUTION WIDTH 14.5 % (11.5-14.5)
[2017-11-22 07:10] LABS: ALB/GLOB RATIO 1.2 (1.1-1.8); ALBUMIN 3.9 g/dL (3.0-4.8); ALT/SGPT 22 U/L (7-56); AST/SGOT 31 U/L (17-59); BLOOD UREA NITROGEN 54 mg/dL (7-21); CALCIUM 9.6 mg/dL (8.4-10.5); GFR AFRICAN-AMERICAN > 60; GFR NON-AFRICAN AMERICAN 53
[2017-11-22 07:12] LABS: INR 0.98 (0.93-1.08); PROTHROMBIN TIME 11.3 SECONDS (9.4-12.5)
[2017-11-22] MEDS: Insulin Reg-HIGH-Coverage SC SCH ×2 (08:25→12:03)
[2017-11-22] MEDS: Insulin Lispro 1 UNITS/0.01 ML SC SCH ×2 (08:25→12:02)
[2017-11-22] MEDS ORDERED: Magnesium Hydroxide Susp 30 ml UD PO ONE (09:41)
[2017-11-22] MEDS: Pantoprazole 40 mg EC Tab PO SCH (09:57)
[2017-11-22] MEDS: Enoxaparin 80 mg Syringe SC SCH (09:58)
--- NOTE | 2017-11-22 11:33 | RAD ---
HISTORY: Compare to see improvement of CHF. COMPARISON: 11/19/2017 TECHNIQUE: Chest PA and lateral FINDINGS: LUNGS: No active pulmonary disease. PLEURA: No significant pleural effusion identified. No pneumothorax apparent. CARDIOVASCULAR: Mild cardiomegaly OSSEOUS STRUCTURES: Sternal wires VISUALIZED UPPER ABDOMEN: Normal. OTHER FINDINGS: Dual lead pacemaker IMPRESSION: No active disease.
[2017-11-22] MEDS ORDERED: Enoxaparin 40 mg Syringe SC SCH (12:14)
[2017-11-22 13:20] VITALS: BP 111/69; RESP 20
[2017-11-22] MEDS: Digoxin 250 mcg (0.25 mg) Tab PO SCH (14:34)
[2017-11-22 14:35] VITALS: PULSE 84
[2017-11-22 16:07] VITALS: PULSE 85
--- NOTE | 2017-11-22 19:08 | PN ---
DATE: 11/22/2017 LOCATION: Patient is in room 261, bed 2. REASON FOR CONSULTATION: Decompensated congestive heart failure, coronary artery disease, history of COPD, history of mitral valve repair, history of old acute code STEMI, cardiogenic shock, prolonged intubation, tracheostomy, then status post decannulation, status post AICD insertion, but admitted with CHF. SUBJECTIVE: Patient is lying flat in bed without chest pain, shortness of breath, palpations. Denies any cardiac symptoms at present. OBJECTIVE: VITAL SIGNS: Blood pressure 111/69, respirations 20, pulse 84, temperature 98.6. HEENT: Head: Normocephalic. Eyes: Pupils normal. Conjunctivae slightly pale. NECK: JVP low. Carotids are equal. Thorax: AP diameter normal. LUNGS: Previously present rales have improved. CARDIOVASCULAR: S1 and S2. ABDOMEN: Soft and nontender. No organomegaly. EXTREMITIES: No clubbing, no cyanosis. LABORATORY DATA: WBC 10, hemoglobin 11, hematocrit 34.7, and platelets 233. Sodium 137, potassium 4.3, BUN 54, creatinine 1.4, glucose 228. Calcium, phosphorous, magnesium normal. Total protein 7.1, albumin 3.9. Patient's chest x-ray repeated today to see improvement of CHF. Today, repeat chest x-ray showed much improvement of CHF, which was seen on chest x-ray on admission. DIAGNOSES: Congestive heart failure; [id number] left ventricular systolic failure; coronary artery disease; history of coronary bypass surgery; status post mitral valve repair; moderate pulmonary hypertension; status post automatic implantable cardioverter-defibrillator insertion; chronic kidney disease; slight elevation of troponin, likely due to abnormal kidney function; diabetes; hypertension; hyperlipidemia; ex-smoker. PLAN: Patient had repeat cardiac catheterization in 06/25/2016. Detail has been mentioned in our consult of 10/2017, please refer to that. Patient is on spironolactone 25 mg daily, aspirin 81 mg daily, Coreg 3.125 b.i.d., insulin as ordered, furosemide 40 mg IV every 12 hours. We will discontinue that and put 40 mg p.o. b.i.d., Lovenox 40 mg every 24 hour, Plavix 75 mg daily, Protonix 40 mg daily, lisinopril 2.5 mg b.i.d. Ashley Brown MD [facility] # [id number]
--- NOTE | 2017-11-24 11:53 | CP.PCM.DIS ---
<Shaq Warner - Last Filed: 11/24/17 11:42> Provider - Provider Date of Admission: 11/19/17 19:46 Attending physician: Ernesto Luna MD Primary care physician: Franko Hansen Consults: Cardio: Efraín Time Spent in preparation of Discharge (in minutes): 51 Diagnosis - Discharge Diagnosis (1) Acute decompensated heart failure Status: Acute (2) Acute respiratory distress Status: Acute (3) Uncontrolled diabetes mellitus Status: Chronic (4) CAD (coronary artery disease) Status: Chronic Hospital Course - Lab Results Lab Results: Most Recent Lab Values WBC 10.0 10^3/ul (4.5-11.0) D 11/22/17 05:30 RBC 4.36 10^6/uL (3.5-6.1) 11/22/17 05:30 Hgb 11.0 g/dL (14.0-18.0) L 11/22/17 05:30 Hct 34.7 % (42.0-52.0) L 11/22/17 05:30 MCV 79.6 fl (80.0-105.0) L 11/22/17 05:30 MCH 25.2 pg (25.0-35.0) 11/22/17 05:30 MCHC 31.7 g/dl (31.0-37.0) 11/22/17 05:30 RDW 14.5 % (11.5-14.5) 11/22/17 05:30 Plt Count 233 10^3/uL (120.0-450.0) 11/22/17 05:30 MPV 9.4 fl (7.0-11.0) 11/22/17 05:30 Gran % 64.4 % (50.0-68.0) 11/22/17 05:30 Lymph % (Auto) 24.2 % (22.0-35.0) 11/22/17 05:30 Victoria % (Auto) 9.3 % (1.0-6.0) H 11/22/17 05:30 Eos % (Auto) 1.8 % (1.5-5.0) 11/22/17 05:30 Baso % (Auto) 0.3 % (0.0-3.0) 11/22/17 05:30 Gran # 6.42 (1.4-6.5) 11/22/17 05:30 Lymph # (Auto) 2.4 (1.2-3.4) 11/22/17 05:30 [place] # (Auto) 0.9 (0.1-0.6) H 11/22/17 05:30 Eos # (Auto) 0.2 (0.0-0.7) 11/22/17 05:30 Baso # (Auto) 0.03 K/mm3 (0.0-2.0) 11/22/17 05:30 Neutrophils % (Manual) 85 % (50.0-70.0) H 11/20/17 04:00 Band Neutrophils % 7 % (0-2) H 11/20/17 04:00 Lymphocytes % (Manual) 6 % (22.0-35.0) L 11/20/17 04:00 Monocytes % (Manual) 1 % (1.0-6.0) 11/20/17 04:00 Eosinophils % (Manual) 1 % (0.0-3.0) 11/20/17 04:00 Platelet Evaluation Normal (NORMAL) 11/20/17 04:00 PT 11.3 SECONDS (9.4-12.5) 11/22/17 05:30 INR 0.98 (0.93-1.08) 11/22/17 05:30 APTT 28.6 Seconds (25.1-36.5) 11/19/17 17:56 pCO2 41 mm/Hg (35-45) 11/19/17 18:06 pO2 190.0 mm/Hg (80-100) H 11/19/17 18:06 HCO3 21.1 mmol/L (21-28) 11/19/17 18:06 ABG pH 7.32 (7.35-7.45) L 11/19/17 18:06 ABG Total CO2 22.4 mmol.L (22-28) 11/19/17 18:06 ABG O2 Saturation 97.8 % (95-98) 11/19/17 18:06 ABG O2 Content 16.3 ML/dl (15-23) 11/19/17 18:06 ABG Base Excess -4.7 mmol/L (-2.0-3.0) L 11/19/17 18:06 ABG Hemoglobin 11.6 g/dL (11.7-17.4) L 11/19/17 18:06 ABG Carboxyhemoglobin 0.4 % (0.5-1.5) L 11/19/17 18:06 POC ABG HHb (Measured) 2.2 % (0-5) 11/19/17 18:06 ABG Methemoglobin 0.0 % (0.0-3.0) 11/19/17 18:06 ABG O2 Capacity 16.7 mL/dl (16-24) 11/19/17 18:06 Hgb O2 Saturation 97.3 % (95.0-98.0) 11/19/17 18:06 FiO2 100.0 % 11/19/17 18:06 Sodium 137 mmol/L (132-148) 11/22/17 05:30 Potassium 4.3 mmol/L (3.6-5.0) 11/22/17 05:30 Chloride 95 mmol/L (98-107) L 11/22/17 05:30 Carbon Dioxide 33 mmol/L (21-33) 11/22/17 05:30 Anion Gap 13 (10-20) 11/22/17 05:30 BUN 54 mg/dL (7-21) H 11/22/17 05:30 Creatinine 1.4 mg/dl (0.8-1.5) 11/22/17 05:30 Est GFR ( Amer) > 60 11/22/17 05:30 Est GFR (Non-Af Amer) 53 11/22/17 05:30 POC Glucose (mg/dL) 228 mg/dL (65-110) H 11/22/17 11:24 Random Glucose 218 mg/dL (70-110) H 11/22/17 05:30 Hemoglobin A1c 9.9 % (4.2-6.5) H 11/19/17 17:56 Serum Osmolality 323 mosm/kg (272-300) H 11/19/17 17:56 Calcium 9.6 mg/dL (8.4-10.5) 11/22/17 05:30 Phosphorus 3.6 mg/dL (2.5-4.5) 11/22/17 05:30 Magnesium 2.1 mg/dL (1.7-2.2) 11/22/17 05:30 Total Bilirubin 0.4 mg/dL (0.2-1.3) 11/22/17 05:30 AST 31 U/L (17-59) 11/22/17 05:30 ALT 22 U/L (7-56) 11/22/17 05:30 Alkaline Phosphatase 101 U/L (38-126) 11/22/17 05:30 Lactate Dehydrogenase 581 U/L (333-699) 11/19/17 17:56 Total Creatine Kinase 124 U/L (35-230) 11/19/17 17:56 Troponin I 0.30 ng/mL H* D 11/21/17 15:50 NT-Pro-B Natriuret Pep 963 pg/mL (0-450) H 11/19/17 17:56 Total Protein 7.1 g/dL (5.8-8.3) 11/22/17 05:30 Albumin 3.9 g/dL (3.0-4.8) 11/22/17 05:30 Globulin 3.2 gm/dL 11/22/17 05:30 Albumin/Globulin Ratio 1.2 (1.1-1.8) 11/22/17 05:30 Triglycerides 300 mg/dL (35-160) H 11/20/17 08:00 Cholesterol 183 mg/dL (130-200) 11/20/17 08:00 LDL Cholesterol Direct 102 mg/dL (0-129) 11/20/17 08:00 HDL Cholesterol 31 mg/dL (29-60) 11/20/17 08:00 Procalcitonin < 0.05 NG/ML (0.19-0.49) L 11/19/17 17:56 TSH 3rd Generation 0.73 mIU/mL (0.46-4.68) 11/20/17 11:40 Urine Color Yellow (YELLOW) 11/19/17 18:47 Urine Appearance Clear (CLEAR) 11/19/17 18:47 Urine pH 6.0 (4.7-8.0) 11/19/17 18:47 Ur Specific [place] 1.015 (1.005-1.035) 11/19/17 18:47 Urine Protein Trace mg/dL (<30 mg/dL) H 11/19/17 18:47 Urine Glucose (UA) >=1000 mg/dL (NEGATIVE) 11/19/17 18:47 Urine Ketones Negative mg/dL (NEGATIVE) 11/19/17 18:47 Urine Blood Trace-lysed (NEGATIVE) H 11/19/17 18:47 Urine Nitrate Negative (NEGATIVE) 11/19/17 18:47 Urine Bilirubin Negative (NEGATIVE) 11/19/17 18:47 Urine Urobilinogen 0.2 E.U./dL (<1 E.U./dL) 11/19/17 18:47 Ur Leukocyte Esterase Negative Bishnu/uL (NEGATIVE) 11/19/17 18:47 Urine RBC 0 - 2 /hpf (0-2) 11/19/17 18:47 Urine WBC 0 - 2 /hpf (0-6) 11/19/17 18:47 Digoxin 1.2 ng/mL (0.8-2.0) 11/19/17 17:56 - Hospital Course Hospital Course: 52 year old male with past medical history significant for HTN, IDDM2, ischemic cardiomyopathy, CAD s/p CABG 5 vessel disease in 08/2015, s/p mitral valve annuloplasty 08/2015 who was admitted for acute decompensated CHF after he came in with progressive SOB after visiting his PMD's office for the same complaint. 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 A chest X-Ray showed cardiomegaly and PVC consistent with ADCHF and an EKG showed NSR 96 beats/min, left posterior fascicular block and nonspecific ST abnormality.An Echocardiogram showed an LVEF of 25-30% with moderate to severe systolic dysfunction and grade-III reversible restrictive diastolic dysfunction. Patient was started on IV Lasix 40mg Q12. Troponins were elevated at 0.36, 0.40 and 0.41. Cardiology was consulted. Patient was started on therapeutic lovenox until troponins downtrended and then DVT prophylactic dose of lovenox was initiated. Home aldactone (held briefly for mild hyperkalemia which resolved with kayexalate), digoxin and zestril were started. Strict I/O and daily weight were started. Cardiology was consulted. By discharge , all signs and symptoms (including radiographic evidence) of cardiogenic pulmonary edema had resolved. Hemoglobin A1c was 9.9. ISS-High and Accuchecks ACHS, Levemir 20u SC HS and home Humalog 20u AC were started. Home ASA, Plavix and Coreg were started. A Lipid panel was reviewed and patients ASCVD Risk was found to be 10.9%. His moderate intensity dose of Lipitor was increased to high intensity dose of 40mg PO daily. Patient was discharged on 11/22/17 after all acute conditions resolved with instructions written as below. - Date & Time of H&P Date of H&P: 12/20/17 Time of H&P: 20:12 Discharge Exam - Head Exam Head Exam: ATRAUMATIC, NORMOCEPHALIC - Eye Exam Eye Exam: EOMI, Normal appearance Pupil Exam: NORMAL ACCOMODATION, PERRL - ENT Exam ENT Exam: Mucous Membranes Moist, Normal Exam - Neck Exam Neck exam: Full Rom - Respiratory Exam Respiratory Exam: Clear to PA & Lateral, NORMAL BREATHING PATTERN, UNREMARKABLE - Cardiovascular Exam Cardiovascular Exam: REGULAR RHYTHM - GI/Abdominal Exam GI & Abdominal Exam: Normal Bowel Sounds, Unremarkable - Extremities Exam Extremities exam: full ROM, normal capillary refill, normal inspection, pedal pulses present - Back Exam Back exam: NORMAL INSPECTION - Neurological Exam Neurological exam: Alert, CN II-XII Intact, Normal Gait, Oriented x3, Reflexes Normal - Psychiatric Exam Psychiatric exam: Normal Affect, Normal Mood - Skin Skin Exam: Dry, Intact, Normal Color, Warm Discharge Plan - Discharge Medications Prescriptions: Furosemide [Lasix] 40 mg PO BID #28 tab - Follow Up Plan Condition: FAIR Disposition: HOME/ ROUTINE Instructions: Quitting Smoking for Older Adults, Diabetes Type 2 (DC), Heart Failure (DC), Pulmonary Edema (DC) Additional Instructions: Please follow up with your primary care doctor within one week for post hospitalization follow up. Please mention to him your increased dosage of Lasix. Also discuss your current medications and management of your Diabetes Mellitus as your Hemoglobin A1c was elevated. Please follow up with your beauty counselor within one week for post hospitalization follow up. Please mention to him your increased dosage of Lasix. Please take all medications as prescribed. If your symptoms worsen or persist, please seek emergency medical attention. Referrals: Ashley Kenny MD [Staff Provider] - Franko Hansen MD [Primary Care Provider] - <Ernesto Luna - Last Filed: 11/24/17 14:32> Provider - Provider Date of Admission: 11/19/17 19:46 Attending physician: Ernesto Luna MD Primary care physician: [facility] Course - Lab Results Lab Results: Most Recent Lab Values WBC 10.0 10^3/ul (4.5-11.0) D 11/22/17 05:30 RBC 4.36 10^6/uL (3.5-6.1) 11/22/17 05:30 Hgb 11.0 g/dL (14.0-18.0) L 11/22/17 05:30 Hct 34.7 % (42.0-52.0) L 11/22/17 05:30 MCV 79.6 fl (80.0-105.0) L 11/22/17 05:30 MCH 25.2 pg (25.0-35.0) 11/22/17 05:30 MCHC 31.7 g/dl (31.0-37.0) 11/22/17 05:30 RDW 14.5 % (11.5-14.5) 11/22/17 05:30 Plt Count 233 10^3/uL (120.0-450.0) 11/22/17 05:30 MPV 9.4 fl (7.0-11.0) 11/22/17 05:30 Gran % 64.4 % (50.0-68.0) 11/22/17 05:30 Lymph % (Auto) 24.2 % (22.0-35.0) 11/22/17 05:30 Victoria % (Auto) 9.3 % (1.0-6.0) H 11/22/17 05:30 Eos % (Auto) 1.8 % (1.5-5.0) 11/22/17 05:30 Baso % (Auto) 0.3 % (0.0-3.0) 11/22/17 05:30 Gran # 6.42 (1.4-6.5) 11/22/17 05:30 Lymph # (Auto) 2.4 (1.2-3.4) 11/22/17 05:30 Victoria # (Auto) 0.9 (0.1-0.6) H 11/22/17 05:30 Eos # (Auto) 0.2 (0.0-0.7) 11/22/17 05:30 Baso # (Auto) 0.03 K/mm3 (0.0-2.0) 11/22/17 05:30 Neutrophils % (Manual) 85 % (50.0-70.0) H 11/20/17 04:00 Band Neutrophils % 7 % (0-2) H 11/20/17 04:00 Lymphocytes % (Manual) 6 % (22.0-35.0) L 11/20/17 04:00 Monocytes % (Manual) 1 % (1.0-6.0) 11/20/17 04:00 Eosinophils % (Manual) 1 % (0.0-3.0) 11/20/17 04:00 Platelet Evaluation Normal (NORMAL) 11/20/17 04:00 PT 11.3 SECONDS (9.4-12.5) 11/22/17 05:30 INR 0.98 (0.93-1.08) 11/22/17 05:30 APTT 28.6 Seconds (25.1-36.5) 11/19/17 17:56 pCO2 41 mm/Hg (35-45) 11/19/17 18:06 pO2 190.0 mm/Hg (80-100) H 11/19/17 18:06 HCO3 21.1 mmol/L (21-28) 11/19/17 18:06 ABG pH 7.32 (7.35-7.45) L 11/19/17 18:06 ABG Total CO2 22.4 mmol.L (22-28) 11/19/17 18:06 ABG O2 Saturation 97.8 % (95-98) 11/19/17 18:06 ABG O2 Content 16.3 ML/dl (15-23) 11/19/17 18:06 ABG Base Excess -4.7 mmol/L (-2.0-3.0) L 11/19/17 18:06 ABG Hemoglobin 11.6 g/dL (11.7-17.4) L 11/19/17 18:06 ABG Carboxyhemoglobin 0.4 % (0.5-1.5) L 11/19/17 18:06 POC ABG HHb (Measured) 2.2 % (0-5) 11/19/17 18:06 ABG Methemoglobin 0.0 % (0.0-3.0) 11/19/17 18:06 ABG O2 Capacity 16.7 mL/dl (16-24) 11/19/17 18:06 Hgb O2 Saturation 97.3 % (95.0-98.0) 11/19/17 18:06 FiO2 100.0 % 11/19/17 18:06 Sodium 137 mmol/L (132-148) 11/22/17 05:30 Potassium 4.3 mmol/L (3.6-5.0) 11/22/17 05:30 Chloride 95 mmol/L (98-107) L 11/22/17 05:30 Carbon Dioxide 33 mmol/L (21-33) 11/22/17 05:30 Anion Gap 13 (10-20) 11/22/17 05:30 BUN 54 mg/dL (7-21) H 11/22/17 05:30 Creatinine 1.4 mg/dl (0.8-1.5) 11/22/17 05:30 Est GFR ( Amer) > 60 11/22/17 05:30 Est GFR (Non-Af Amer) 53 11/22/17 05:30 POC Glucose (mg/dL) 228 mg/dL (65-110) H 11/22/17 11:24 Random Glucose 218 mg/dL (70-110) H 11/22/17 05:30 Hemoglobin A1c 9.9 % (4.2-6.5) H 11/19/17 17:56 Serum Osmolality 323 mosm/kg (272-300) H 11/19/17 17:56 Calcium 9.6 mg/dL (8.4-10.5) 11/22/17 05:30 Phosphorus 3.6 mg/dL (2.5-4.5) 11/22/17 05:30 Magnesium 2.1 mg/dL (1.7-2.2) 11/22/17 05:30 Total Bilirubin 0.4 mg/dL (0.2-1.3) 11/22/17 05:30 AST 31 U/L (17-59) 11/22/17 05:30 ALT 22 U/L (7-56) 11/22/17 05:30 Alkaline Phosphatase 101 U/L (38-126) 11/22/17 05:30 Lactate Dehydrogenase 581 U/L (333-699) 11/19/17 17:56 Total Creatine Kinase 124 U/L (35-230) 11/19/17 17:56 Troponin I 0.30 ng/mL H* D 11/21/17 15:50 NT-Pro-B Natriuret Pep 963 pg/mL (0-450) H 11/19/17 17:56 Total Protein 7.1 g/dL (5.8-8.3) 11/22/17 05:30 Albumin 3.9 g/dL (3.0-4.8) 11/22/17 05:30 Globulin 3.2 gm/dL 11/22/17 05:30 Albumin/Globulin Ratio 1.2 (1.1-1.8) 11/22/17 05:30 Triglycerides 300 mg/dL (35-160) H 11/20/17 08:00 Cholesterol 183 mg/dL (130-200) 11/20/17 08:00 LDL Cholesterol Direct 102 mg/dL (0-129) 11/20/17 08:00 HDL Cholesterol 31 mg/dL (29-60) 11/20/17 08:00 Procalcitonin < 0.05 NG/ML (0.19-0.49) L 11/19/17 17:56 TSH 3rd Generation 0.73 mIU/mL (0.46-4.68) 11/20/17 11:40 Urine Color Yellow (YELLOW) 11/19/17 18:47 Urine Appearance Clear (CLEAR) 11/19/17 18:47 Urine pH 6.0 (4.7-8.0) 11/19/17 18:47 Ur Specific [place] 1.015 (1.005-1.035) 11/19/17 18:47 Urine Protein Trace mg/dL (<30 mg/dL) H 11/19/17 18:47 Urine Glucose (UA) >=1000 mg/dL (NEGATIVE) 11/19/17 18:47 Urine Ketones Negative mg/dL (NEGATIVE) 11/19/17 18:47 Urine Blood Trace-lysed (NEGATIVE) H 11/19/17 18:47 Urine Nitrate Negative (NEGATIVE) 11/19/17 18:47 Urine Bilirubin Negative (NEGATIVE) 11/19/17 18:47 Urine Urobilinogen 0.2 E.U./dL (<1 E.U./dL) 11/19/17 18:47 Ur Leukocyte Esterase Negative Bishnu/uL (NEGATIVE) 11/19/17 18:47 Urine RBC 0 - 2 /hpf (0-2) 11/19/17 18:47 Urine WBC 0 - 2 /hpf (0-6) 11/19/17 18:47 Digoxin 1.2 ng/mL (0.8-2.0) 11/19/17 17:56 Attending/Attestation - Attestation I have personally seen and examined this patient.: Yes I have fully participated in the care of the patient.: Yes I have reviewed all pertinent clinical information, including history, physical exam and plan: Yes Notes (Text): I have seen and examined the patient at bedside. Agree with the above note with the following additions/ exceptions: Briefly this is 52 year old male with history of HTN, IDDM2, ischemic cardiomyopathy, CAD s/p CABG 5 vessel disease in 08/2015, s/p mitral valve annuloplasty 08/2015 who was admitted for acute decompensated CHF. CXR confirmed venous congestions. BNP was elevated. Patient feels better and wants to go home. Discussed with beauty counselor. Lasix will be switched to PO. Troponins are trending down and creatinine is stable. Patient denies any chest pain. Continue aspirin, plavix, coreg digoxin, zestril, lovenox and lipitor. Echo revealed EF 25-30% with grade 3 diastolic dysfunction. Hba1c is almost 10. Blood sugars have improved. Advised patient to check his BS at home frequently and make diabetes diary. Upon discharge patient will follow up with Dr Hansen. Dr Ernesto Luna
== END 2017-11-22 18:22 | disposition home or self-care (01) | DRG 291 ==
LOC: ED 17:34 → ERH 19:46 → 2RNO 22:15
PROVIDERS: ADMIT Hospitalist; ATTEND Hospitalist
PROC: 5A09357 Assistance with Respiratory Ventilation, Less than 24 Consecutive Hours, Continuous Positive Airway Pressure (ICD-10-PCS; principal; 2017-11-19)
DX: I13.0 Hypertensive heart and chronic kidney disease with heart failure and stage 1 through stage 4 chronic kidney disease, or unspecified chronic kidney disease (principal); I50.23 Acute on chronic systolic (congestive) heart failure; N17.9 Acute kidney failure, unspecified; R06.03 Acute respiratory distress; N18.3 Chronic kidney disease, stage 3 (moderate); E11.65 Type 2 diabetes mellitus with hyperglycemia; E11.22 Type 2 diabetes mellitus with diabetic chronic kidney disease; I27.20 Pulmonary hypertension, unspecified; I25.5 Ischemic cardiomyopathy; I25.10 Atherosclerotic heart disease of native coronary artery without angina pectoris; I44.5 Left posterior fascicular block; E87.5 Hyperkalemia; J44.9 Chronic obstructive pulmonary disease, unspecified; E78.5 Hyperlipidemia, unspecified; I25.2 Old myocardial infarction; Z95.810 Presence of automatic (implantable) cardiac defibrillator; Z95.1 Presence of aortocoronary bypass graft; Z79.4 Long term (current) use of insulin; Z87.891 Personal history of nicotine dependence; Z93.0 Tracheostomy status; Z79.82 Long term (current) use of aspirin; Z87.01 Personal history of pneumonia (recurrent); Z95.2 Presence of prosthetic heart valve

== ENCOUNTER 2018-03-18 20:34 | Inpatient (IN) | payer OTHER, MEDICARE ==
[2018-03-18 20:35] VITALS: BMI 25.9
[2018-03-18] MEDS ORDERED: Albuterol-Ipratrop 3 mg / 0.5 (3 ml) UD IH STA (20:51)
--- NOTE | 2018-03-18 21:18 | ED PDOC ---
Arrival/HPI - General Chief Complaint: Shortness Of Breath Time Seen by Provider: 03/18/18 20:45 Historian: Patient - History of Present Illness Narrative History of Present Illness (Text): 03/18/18 21:13 52 year old male. whose past medical history includes hypertension, insulin dependent diabetes mellitus, cardiomyopathy, CAD s/p CABG, CHF, mitral valve anulopathy, and a pacemaker, who presents to the complaining of sob over the past day. Patient notes associated left sided chest discomfort. Patient denies any fever, chills, nausea, vomiting, diarrhea, back pain, neck pain, headache, dizziness, or any other complaints. Time/Duration: Other (today) Symptom Onset: Gradual Symptom Course: Unchanged Activities at Onset: Light Context: Home Past Medical History - Provider Review Nursing Documentation Reviewed: Yes - Past History Past History: No Previous - Infectious Disease Hx of Infectious Diseases: None - Reproductive Currently Lactating: No - Cardiac Hx Cardiac Disorders: Yes Hx Congestive Heart Failure: Yes Hx CO: Yes Hx Hypertension: Yes Hx Pacemaker: Yes - Pulmonary Hx Respiratory Disorders: Yes Hx Chronic Obstructive Pulmonary Disease (COPD): Yes - Neurological Hx Neurological Disorder: No - HEENT Hx HEENT Disorder: No - Renal Hx Renal Disorder: No - Endocrine/Metabolic Hx Endocrine Disorders: Yes Hx Diabetes Mellitus Type 2: Yes - Hematological/Oncological Hx Blood Disorders: No - Integumentary Hx Dermatological Disorder: No - Musculoskeletal/Rheumatological Hx Musculoskeletal Disorders: No Hx Falls: No - Gastrointestinal Hx Gastrointestinal Disorders: No - Genitourinary/Gynecological Hx Genitourinary Disorders: No - Psychiatric Hx Psychophysiologic Disorder: No Hx Substance Use: No - Past Surgical History Past Surgical History: No Previous - Surgical History Hx Open Heart Surgery: Yes Other/Comment: stents - Anesthesia Hx Anesthesia: Yes Hx Anesthesia Reactions: No Hx Malignant Hyperthermia: No - Suicidal Assessment Feels Threatened In Home Enviroment: No Family/Social History - Physician Review Nursing Documentation Reviewed: Yes Family/Social History: Unknown Family HX Smoking Status: Former Smoker Hx Alcohol Use: No Hx Substance Use: No Hx Substance Use Treatment: No Allergies/Home Meds Allergies/Adverse Reactions: Allergies No Known Allergies Allergy (Verified 11/19/17 18:04) Home Medications: Home Meds Medication Instructions Recorded Confirmed Insulin Lispro [Humalog] 30 units SC TID 11/18/15 03/19/18 Enalapril Maleate [Vasotec] 5 mg PO BID 11/19/17 03/19/18 Insulin Glargine, Recombina 35 unit SC HS 11/19/17 03/19/18 [Lantus] Carvedilol [Coreg] 12.5 mg PO BID 03/19/18 03/19/18 Digoxin [Lanoxin] 0.25 mg PO DAILY 03/19/18 03/19/18 Metolazone 10 mg PO DAILY 03/19/18 03/19/18 Rosuvastatin Calcium [Crestor] 40 mg PO DAILY 03/19/18 03/19/18 Review of Systems - Physician Review All systems were reviewed & negative as marked: Yes - Review of Systems Constitutional: Normal Eyes: Normal ENT: Normal Respiratory: SOB. absent: Cough Cardiovascular: Chest Pain Gastrointestinal: Normal. absent: Abdominal Pain, Diarrhea, Nausea Genitourinary Male: Normal. absent: Dysuria, Frequency Musculoskeletal: Normal. absent: Back Pain, Neck Pain Skin: Normal. absent: Rash Neurological: Normal. absent: Headache Endocrine: Normal Hemo/Lymphatic: Normal Psychiatric: Normal Physical Exam Vital Signs Reviewed: Yes Vital Signs Temp Pulse Resp BP Pulse Ox 03/18/18 22:35 82 17 108/51 L 96 03/18/18 21:37 98.1 F 82 16 101/49 L 96 03/18/18 21:20 144/84 03/18/18 20:39 97 H 30 H 144/84 91 L Temperature: Afebrile Blood Pressure: Normal Pulse: Regular Respiratory Rate: Tachypneic Appearance: Positive for: Well-Appearing, Non-Toxic, Comfortable Pain Distress: None Mental Status: Positive for: Alert and Oriented X 3 - Systems Exam Head: Present: Atraumatic, Normocephalic Pupils: Present: PERRL Extroacular Muscles: Present: EOMI Conjunctiva: Present: Normal Mouth: Present: Moist Mucous Membranes Neck: Present: Normal Range of Motion Respiratory/Chest: Present: Rales (rales at bases), Rhonchi (bilateral rhonchi) . No: Respiratory Distress, Accessory Muscle Use Cardiovascular: Present: Regular Rate and Rhythm, Normal S1, S2. No: Murmurs Abdomen: No: Tenderness, Distention, Peritoneal Signs Back: Present: Normal Inspection Upper Extremity: Present: Normal Inspection. No: Cyanosis, Edema Lower Extremity: Present: Edema (1+ pedal edema) Neurological: Present: GCS=15, CN II-XII Intact, Speech Normal Skin: Present: Warm, Dry, Normal Color. No: Rashes Psychiatric: Present: Alert, Oriented x 3, Normal Insight, Normal Concentration Medical Decision Making ED Course and Treatment: 03/18/18 21:21 Impression: 52 year old male presents to the emergency department complaining of sob and left sided cp x 1 day. Plan: -- EKG -- Cardiac Enzymes -- Labs -- Chest X-ray -- Duoneb -- Lasix -- Reassess and disposition Progress Notes: EKG reviewed, shows NSR at 96 bpm. Left posterior hemiblock. Non-Specific ST/T wave changes. 03/18/18 22:11: Chest X-Ray read and interpreted by me shows increased pulmonary vascular markings. 03/18/18 22:38: Case discussed with medical referral coordinator. Will admit patient to Telemetry. 03/18/18 23:11: Case discussed with Dr. Luna who accepts patient to the hospitalist's service. - Lab Interpretations Lab Results: 03/18/18 21:05 03/18/18 21:05 Lab Results 03/18/18 21:05: Digoxin 0.9 03/18/18 21:05: WBC 11.7 H, RBC 4.19, Hgb 11.0 L, Hct 32.9 L, MCV 78.5 L, MCH 26.3, MCHC 33.4, RDW 14.7 H, Plt Count 246, MPV 9.1 03/18/18 21:05: Sodium 137, Potassium 5.1 H, Chloride 99, Carbon Dioxide 23, Anion Gap 20, BUN 43 H, Creatinine 1.6 H, Est GFR ( Amer) 55, Est GFR ( Non-Af Amer) 46, Random Glucose 281 H, Calcium 9.2, Total Bilirubin 0.3, AST 48 , ALT 37, Alkaline Phosphatase 102, Lactate Dehydrogenase 559, Total Creatine Kinase 177, Troponin I 0.06 D, NT-Pro-B Natriuret Pep 1010 H, Total Protein 7.5 , Albumin 4.3, Globulin 3.2, Albumin/Globulin Ratio 1.4 03/18/18 21:05: PT 10.8, INR 0.95, APTT 29.5 - RAD Interpretation Radiology Orders: 03/18/18 20:51 CHEST PORTABLE [RAD] Stat - Medication Orders Current Medication Orders: Discontinued Medications Albuterol/Ipratropium (Duoneb 3 Mg/0.5 Mg (3 Ml) Ud) 3 ml IH ONCE STA Stop: 03/18/18 20:52 Last Admin: 03/18/18 21:19 Dose: 3 ml Furosemide (Lasix) 40 mg IVP ONCE ONE Stop: 03/18/18 20:52 Last Admin: 03/18/18 21:20 Dose: 40 mg MAR Blood Pressure Document 03/18/18 21:20 CNR (Rec: 03/18/18 21:20 CNR [id number]) Blood Pressure Blood Pressure (100/60-150/90 mm Hg) 144/84 IVP Administration Document 03/18/18 21:20 CNR (Rec: 03/18/18 21:20 CNR [id number]) Charges for Administration # of IVP Administrations 1 Nitroglycerin (Nitro-Bid 2% Oint) 1 ea TOP ONCE STA Stop: 03/18/18 22:11 Last Admin: 03/18/18 22:46 Dose: 1 ea - Scribe Statement The provider has reviewed the documentation as recorded by the Scribbertrand Carroll All medical record entries made by the Jingibbertrand were at my direction and personally dictated by me. I have reviewed the chart and agree that the record accurately reflects my personal performance of the history, physical exam, medical decision making, and the department course for this patient. I have also personally directed, reviewed, and agree with the discharge instructions and disposition. Disposition/Present on Arrival - Present on Arrival Any Indicators Present on Arrival: No History of DVT/PE: No History of Uncontrolled Diabetes: Yes Urinary Catheter: No History of Decub. Ulcer: No History Surgical Site Infection Following: None - Disposition Have Diagnosis and Disposition been Completed?: Yes Diagnosis: Acute CHF (congestive heart failure), Chest pain Disposition: HOSPITALIZED Disposition Time: 22:42 Patient Plan: Admission Patient Problems: Current Active Problems Problem Status Onset Acute CHF (congestive heart failure) Acute Chest pain Acute Condition: STABLE
[2018-03-18 21:31] LABS: MEAN CELL VOLUME 78.5 fl (80.0-105.0); MEAN CORPUSCULAR HEMOGLOBIN 26.3 pg (25.0-35.0); MEAN CORPUSCULAR HGB CONC 33.4 g/dl (31.0-37.0); MEAN PLATELET VOLUME 9.1 fl (7.0-11.0); RBC 4.19 10^6/uL (3.5-6.1); RED CELL DISTRIBUTION WIDTH 14.7 % (11.5-14.5); WHITE BLOOD COUNT 11.7 10^3/ul (4.5-11.0)
[2018-03-18 21:36] LABS: INR 0.95 (0.93-1.08); PARTIAL THROMBOPLASTIN TIME 29.5 Seconds (25.1-36.5); PROTHROMBIN TIME 10.8 SECONDS (9.4-12.5)
[2018-03-18 21:59] LABS: ALB/GLOB RATIO 1.4 (1.1-1.8); ALBUMIN 4.3 g/dL (3.0-4.8); CALCIUM 9.2 mg/dL (8.4-10.5)
[2018-03-18 22:09] LABS: TROPONIN I 0.06 ng/mL
[2018-03-18] MEDS ORDERED: Nitroglycerin 2% Ointment Foilpak UD TOP STA (22:10)
[2018-03-19] MEDS ORDERED: Albuterol-Ipratrop 3 mg / 0.5 (3 ml) UD IH PRN (00:52)
[2018-03-19] MEDS ORDERED: Insulin Detemir 100 units/ml Vial (Levemir) SC SCH ×2 (01:15→10:00)
--- NOTE | 2018-03-19 02:17 | CP.PCM.HP ---
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 whose past medical history includes hypertension, insulin dependent diabetes mellitus,CAD s/p 5 vessel bypass, CHF EF 25-30% (3/18), mitral valve anulopathy, and AIC, who presents to [facility] on 03/18 complaining of SOB, L sided chest discomfort x1 day. 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 Reports compliance w/ salt restricted diet, and all medications. However, he did report decreased urinary output over the past 24-48 hours; denies any associated hematuria, dysuria, and flank pain. He states compliance w/ daily weights and does not report any increase in weight. He does report minimal new onset swelling of left lower extremity. He denies any recent fevers/chills; denies any new onset wheezing; reports for his hx of COPD he uses his inhaler BID now however in prior months he was using it much more frequently. Does have O2 at home however uses it as PRN; he has not required use of O2 recently. He reports new onset minimal cough this AM w/ clear sputum. 12 system ROS otherwise negative. Social: EtOH social, former smoker 20 pack year hx quit 3 years ago, denies illicit PMD: Dr. 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 - Ashley Mckeon PSH: Mitral valve annuloplasty, AICD placement PMH: As above Home Rx: Metalozone 10 daily Crestor 40mg daily protonix 40mg daily Lasix 40mg po twice daily enalapril 5mg twice daily digoxin .25mg daily pavix 75 daily lantus 35u daily humalog 30u TID coreg 12.5 twice daily ASA 81 daily Spironolactone 25 daily Present on Admission - Present on Admission Any Indicators Present on Admission: Yes History of Uncontrolled Diabetes: Yes Review of Systems - Review of Systems All systems: reviewed and no additional remarkable complaints except Review of Systems: as per HPI Past Patient History - Infectious Disease Hx of Infectious Diseases: None - Past Social History Smoking Status: Former Smoker - CARDIAC Hx Cardiac Disorders: Yes Hx Congestive Heart Failure: Yes Hx Heart Attack: Yes Hx Hypertension: Yes Hx Pacemaker: Yes - PULMONARY Hx Respiratory Disorders: Yes Hx Chronic Obstructive Pulmonary Disease (COPD): Yes - NEUROLOGICAL Hx Neurological Disorder: No - HEENT Hx HEENT Problems: No - RENAL Hx Chronic Kidney Disease: No - ENDOCRINE/METABOLIC Hx Endocrine Disorders: Yes Hx Diabetes Mellitus Type 2: Yes - HEMATOLOGICAL/ONCOLOGICAL Hx Blood Disorders: No - INTEGUMENTARY Hx Dermatological Problems: No - MUSCULOSKELETAL/RHEUMATOLOGICAL Hx Musculoskeletal Disorders: No Hx Falls: No - GASTROINTESTINAL Hx Gastrointestinal Disorders: No - GENITOURINARY/GYNECOLOGICAL Hx Genitourinary Disorders: No - PSYCHIATRIC Hx Psychophysiologic Disorder: No Hx Substance Use: No - SURGICAL HISTORY Hx Open Heart Surgery: Yes Other/Comment: stents - ANESTHESIA Hx Anesthesia: Yes Hx Anesthesia Reactions: No Hx Malignant Hyperthermia: No Meds Allergies/Adverse Reactions: Allergies Allergy/AdvReac Type Severity Reaction Status Date / Time No Known Allergies Allergy Verified 11/19/17 18:04 Physical Exam - Constitutional Appears: Well, Non-toxic, No Acute Distress - Head Exam Head Exam: ATRAUMATIC, NORMOCEPHALIC - Eye Exam Eye Exam: EOMI, Normal appearance, PERRL. absent: Scleral icterus - ENT Exam ENT Exam: Mucous Membranes Moist, Normal Exam - Neck Exam Neck exam: Positive for: Normal Inspection - Respiratory Exam Respiratory Exam: NORMAL BREATHING PATTERN Additional comments: Regular inspiratory/expiratory phases; Crackles in RML/RLL No wheezing - Cardiovascular Exam Cardiovascular Exam: REGULAR RHYTHM, RRR, +S1, +S2, Systolic Murmur (Mitral Post ) Additional comments: Surgical scar along sternum; AICD pocket in top left chest - GI/Abdominal Exam GI & Abdominal Exam: Soft. absent: Mass, Tenderness - Extremities Exam Additional comments: Extremities warm; LE pulses 1+ TP/DP BL; 1+ non pitting EDEMA BL LE - Back Exam Back exam: absent: CVA tenderness (L), CVA tenderness (R) - Neurological Exam Neurological exam: Alert, Oriented x3 - Psychiatric Exam Psychiatric exam: Normal Affect, Normal Mood - Skin Skin Exam: Dry, Intact, Warm Results - Vital Signs Recent Vital Signs: Last Vital Signs Temp 98.1 F 03/18/18 21:37 Pulse 82 03/19/18 01:00 Resp 15 03/19/18 01:00 BP 109/60 03/19/18 01:00 Pulse Ox 95 03/19/18 01:00 - Labs Result Diagrams: 03/18/18 21:05 03/18/18 21:05 Labs: Laboratory Results - last 24 hr 03/19/18 01:14 POC Glucose (mg/dL) 272 H Assessment & Plan - Assessment and Plan (Free Text) Assessment: 52 male PMH of hypertension, insulin dependent diabetes mellitus, CAD s/p 5 vessel bypass, CHF EF 25-30% (3/), mitral valve anulopathy, and AIC, who presents to the complaining of SOB, L sided chest discomfort SOB suspect most likely due to Pulmonary edema 2/2 CHF vs COPD Exacerbation vs Infectious etiology Infectious: Afebrile, WBC wnl, RML/RLL crackles, -Procal pending COPD Exacerbation: No wheezing on exam; RML/RLL crackles appreciated on auscultation -Start Duonebs Q6H PRN Pulm edema/ CHF Exacerbation: BNP elevated but at patient's baseline, CXR unchanged from prior admission, Reports of dec urination over past 24-48H; suspect Cardio-Renal syndrome -Lasix 40mg IVP given in ED -D/C home lasix 40mg PO -Start Lasix 40mg IVP BID -C/w Home metalozone 10 QD -C/w home Coreg 12.5 BID -C/w Home Digoxin 0.25mg QD -Digoxin level pending -Strict IO/ Daily weight -CBC/CMP; Monitor K+; Replete lytes as needed -Cardiology consulted - Dr. Kenny Hx CAD s/p 5 vessel bypass s/p AICD -Troponin equivocal on arrival; Continue trending trop Q6H -F/u AM EKG -Cont home ASA -Cont home Plavix -Cont home Statin Chronic renal insufficiency/ Stage 3 CKD Prev Documented Cr clearance 40-45% Average Cr ~1.1-1.3; Cr on arrival 1.6 Will hold home spironolactone Will hold home enalapril Diuresis as above Trend Cr UA pending Urine Urea pending Urine Cr pending 24H Cr Clearance pending Renal US pending Hx Uncontrolled DM - 35U Lantus at home; non formulary here -Started Levemir 17U HS; Levemir 18U QAM -C/w home Humalog 30U TID -Started ISS Low GI/DVT PPx: Protonix/ DAPT as above Dispo: Admit to telemetry for further workup/management of SOB/ CHF exacerbation Patient seen, examined, and discussed w/ attending physician Jadiel Funes DO PGY1 Internal Medicine Dishwasher - Date & Time Date: 03/19/18 Time: 02:53
[2018-03-19 03:35] LABS: BASO # 0.04 K/mm3 (0.0-2.0); BASO % 0.4 % (0.0-3.0); EOS # 0.2 (0.0-0.7); EOS % 1.5 % (1.5-5.0); GRAN # 8.14 (1.4-6.5); GRAN % 72.5 % (50.0-68.0); HEMOGLOBIN 10.1 g/dL (14.0-18.0); LYMPH # 2.1 (1.2-3.4); LYMPH % 18.7 % (22.0-35.0); MEAN CORPUSCULAR HEMOGLOBIN 25.8 pg (25.0-35.0); MEAN CORPUSCULAR HGB CONC 33.1 g/dl (31.0-37.0); MEAN PLATELET VOLUME 8.6 fl (7.0-11.0); MONO # 0.8 (0.1-0.6); MONO % 6.9 % (1.0-6.0); RBC 3.91 10^6/uL (3.5-6.1); RED CELL DISTRIBUTION WIDTH 14.7 % (11.5-14.5); WHITE BLOOD COUNT 11.2 10^3/ul (4.5-11.0)
[2018-03-19 03:44] LABS: URINE BILIRUBIN NEGATIVE (NEGATIVE); URINE BLOOD NEGATIVE (NEGATIVE); URINE GLUCOSE (UA) 100 mg/dL (NEGATIVE); URINE LEUKOCYTE ESTERASE NEGATIVE Leu/uL (NEGATIVE); URINE PROTEIN NEGATIVE mg/dL (<30 mg/dL); URINE UROBILINOGEN 0.2 E.U./dL (<1 E.U./dL)
[2018-03-19 03:47] LABS: URINE APPEARANCE CLOUDY (CLEAR); URINE COLOR LIGHT YELLOW (YELLOW)
[2018-03-19 03:51] LABS: ALB/GLOB RATIO 1.4 (1.1-1.8); ALBUMIN 4.2 g/dL (3.0-4.8); CALCIUM 9.3 mg/dL (8.4-10.5); TROPONIN I 0.58 ng/mL
[2018-03-19 03:52] LABS: CREATININE,RANDOM URINE 19 mg/dL
[2018-03-19] MEDS: Pantoprazole 40 mg EC Tab PO SCH (06:17)
[2018-03-19] MEDS ORDERED: Magnesium 2 gm/50 ml NS 2 GM/50 ML BAG IVPB ONE (06:51)
[2018-03-19] MEDS ORDERED: Insulin Reg-HIGH-Coverage SC SCH (07:57)
[2018-03-19] MEDS ORDERED: metOLazone 5 MG TAB PO SCH (10:00)
[2018-03-19] MEDS ORDERED: Rosuvastatin Calcium [Crestor] 40 MG (HOME MED) PO SCH (10:00)
[2018-03-19] MEDS ORDERED: Insulin Lispro (HUMAlog) HIGH Coverage SC SCH (10:00)
[2018-03-19] MEDS: Milrinone 20mg/100ml D5W 100 ML IV PRN (10:20)
[2018-03-19] MEDS: Enoxaparin 30 mg Syringe SC SCH (10:21)
[2018-03-19] MEDS: metOLazone 5 MG TAB PO SCH (10:22)
--- NOTE | 2018-03-19 10:48 | RAD ---
Date of service: 03/18/2018 HISTORY: sob COMPARISON: 11/22/2017 FINDINGS: LUNGS: No active pulmonary disease. PLEURA: No significant pleural effusion identified, no pneumothorax apparent. CARDIOVASCULAR: Mild cardiomegaly. Moderate vascular congestion OSSEOUS STRUCTURES: Sternal wires VISUALIZED UPPER ABDOMEN: Normal. OTHER FINDINGS: Pacemaker IMPRESSION: Moderate vascular congestion
[2018-03-19] MEDS: Insulin Reg-HIGH-Coverage SC SCH ×4 (11:09→23:09)
--- NOTE | 2018-03-19 13:03 | US ---
PROCEDURE: Lower extremity JONAS exam HISTORY: Peripheral vascular disease with pain and claudication. Diabetes. Previous smoker PHYSICIAN(S): Jose Alfredo Tucker MD. FINDINGS: The right resting JONAS is mildly abnormal, 0.8. The left resting JONAS is normal, 1.3 The brachial systolic pressures are symmetric. The high thigh pressures and waveforms are relatively normal. There appears to be a significant gradient across the right thigh and knee. The right calf PVR waveform is decreased in amplitude compared to the left. This is consistent with right SFA, popliteal, and/ or trifurcation disease. The left PVR waveforms and pressures are normal at all levels. IMPRESSION: 1. Mildly abnormal right JONAS at rest. 2. Right SFA, popliteal, and/ or trifurcation disease.
[2018-03-19] MEDS: Digoxin 250 mcg (0.25 mg) Tab PO SCH (13:28)
[2018-03-19] MEDS: Insulin Lispro 1 UNITS/0.01 ML SC SCH (17:23)
--- NOTE | 2018-03-19 18:16 | US ---
HISTORY: Leg pain and swelling. Evaluate for DVT PHYSICIAN(S): Jose Alfredo Tucker MD. TECHNIQUE: Duplex sonography and color-flow Doppler with graded compression were used to evaluate the deep venous systems of both lower extremities. FINDINGS: The visualized deep venous systems of both lower extremities are sonographically normal and compressible. Normal wave forms and augmentation are seen. There is no sonographic evidence for deep venous thrombosis in the visualized segments of both lower extremities. IMPRESSION: No sonographic evidence for deep venous thrombosis in the visualized segments of both lower extremities.
--- NOTE | 2018-03-19 18:40 | CARD ---
APPROVED REPORT Date of service: 03/19/2018 EKG Measurement Heart [id number] <Conclusion> Normal sinus rhythm Nonspecific intraventricular block Possible Lateral infarct, age undetermined Inferior infarct, age undetermined Abnormal ECG
--- NOTE | 2018-03-19 18:41 | CARD ---
APPROVED REPORT Date of service: 03/19/2018 EKG Measurement Heart [id number] <Conclusion> Normal sinus rhythm Nonspecific intraventricular block Possible Inferior infarct, age undetermined Cannot rule out Anterior infarct, age undetermined Abnormal ECG
--- NOTE | 2018-03-19 18:47 | CARD ---
APPROVED REPORT Date of service: 03/18/2018 EKG Measurement Heart [id number] <Conclusion> Normal sinus rhythm Left posterior fascicular block Abnormal ECG
[2018-03-19] MEDS: Insulin Detemir 100 units/ml Vial (Levemir) SC SCH (23:11)
[2018-03-20] MEDS: Milrinone 20mg/100ml D5W 100 ML IV PRN ×3 (00:22→20:06)
[2018-03-20] MEDS: Pantoprazole 40 mg EC Tab PO SCH (05:26)
[2018-03-20 06:57] LABS: BASO # 0.04 K/mm3 (0.0-2.0); BASO % 0.4 % (0.0-3.0); EOS # 0.2 (0.0-0.7); EOS % 2.3 % (1.5-5.0); GRAN # 7.34 (1.4-6.5); GRAN % 71.9 % (50.0-68.0); HEMOGLOBIN 10.2 g/dL (14.0-18.0); LYMPH # 1.9 (1.2-3.4); LYMPH % 18.4 % (22.0-35.0); MEAN CORPUSCULAR HEMOGLOBIN 25.5 pg (25.0-35.0); MEAN CORPUSCULAR HGB CONC 33.1 g/dl (31.0-37.0); MONO # 0.7 (0.1-0.6); RED CELL DISTRIBUTION WIDTH 14.2 % (11.5-14.5); WHITE BLOOD COUNT 10.2 10^3/ul (4.5-11.0)
[2018-03-20 07:20] LABS: ALB/GLOB RATIO 1.4 (1.1-1.8); ALBUMIN 4.3 g/dL (3.0-4.8); ALT/SGPT 32 U/L (7-56); AST/SGOT 29 U/L (17-59); BLOOD UREA NITROGEN 49 mg/dL (7-21); CALCIUM 9.6 mg/dL (8.4-10.5); GFR AFRICAN-AMERICAN 55; GFR NON-AFRICAN AMERICAN 46; HDL CHOLESTEROL 23 mg/dL (29-60)
[2018-03-20 07:33] LABS: LDL CHOLESTEROL < 30 mg/dL (0-129)
[2018-03-20] MEDS: Insulin Reg-HIGH-Coverage SC SCH ×4 (08:07→22:04)
[2018-03-20] MEDS: Insulin Lispro 1 UNITS/0.01 ML SC SCH ×3 (08:07→17:17)
--- NOTE | 2018-03-20 08:46 | CON ---
DATE: 03/19/2018 REASON FOR THE CONSULTATION AND FOLLOWUP: Acute decompensated congestive heart failure secondary to systolic dysfunction, history of coronary artery disease, and cardiac evaluation. BRIEF CLINICAL HISTORY: This is a 52-year-old male with a past medical history significant for a STEMI, status post 5-vessel bypass, status post AICD, cardiomyopathy, mitral valve annuloplasty, came in with complaint of shortness of breath for one day. Denies any chest pain. Denies any palpitation. PAST HISTORY: Significant for coronary artery disease, status post non-STEMI in 07/2015, where the patient had a primary stent to the circumflex and intraaortic balloon pump was placed because of cardiogenic shock and transferred to [facility] with the 5-vessel bypass and prolonged intubation, chest left open and then closed with secondary intention. PEG placement and tracheostomy done. Multiple attempts were made to decannulate, ultimately patient got successfully decannulated and had AICD done. Most recent cardiac workup as follows: Patient had MUGA scan done on 10/21/2015, ejection fraction of 40%. Last echo done on 11/20/2017, when the patient admitted with decompensated congestive heart failure that revealed ejection fraction 25% to 30%. Systolic function of RV mildly reduced. No aortic regurgitation present. No aortic stenosis. [id number] mitral regurgitation, status post annuloplasty. Moderate tricuspid regurgitation with RV systolic pressure of 56. Moderate pulmonary hypertension and trace pulmonary insufficiency. SOCIAL HISTORY: Ex-smoker. Denies any history of alcohol abuse. CURRENT MEDICATIONS: Patient is taking metolazone, Lasix, enalapril, digoxin, Plavix, carvedilol, and spironolactone. REVIEW OF SYSTEMS: As per HPI. PHYSICAL EXAMINATION: GENERAL: Height of the patient 5 feet 4 inches, weight of the patient 177 pounds, body mass index 30.5 kg/m2. VITAL SIGNS: Temperature afebrile, heart rate 82, and blood pressure 124/60. HEENT: PERRLA. Extraocular muscles intact. NECK: Supple. No carotid bruits or thyromegaly. CHEST: Clear to auscultation. HEART: S1 and S2, regular. ABDOMEN: Soft. EXTREMITIES: Clubbing and cyanosis negative. LABORATORY DATA: Blood workup as follows: WBC 11.8, hemoglobin 10.2, hematocrit 30.5, and platelet count 234. Chemistry shows sodium 137, potassium 4.4, chloride 98, carbon dioxide 28, anion gap of 16.. BUN 43, creatinine 1.5. BNP 1010. DIAGNOSTIC DATA: EKG shows normal sinus rhythm with acute ST-T changes noted, poor R-R progression. IMPRESSION: A 52-year-old male with past medical history significant for coronary artery disease; status post non-ST elevation myocardial infarction in 07/2015, when the patient presented with a non-ST elevation myocardial infarction, status post cardiogenic shock, catheterization, and stenting of the circumflex and then multivessel coronary artery bypass graft, annuloplasty of mitral valve, and protracted post coronary artery bypass graft, chest left open. Ultimately, patient with automatic implantable cardioverter-defibrillator, multiple ventricular tachycardia, ventricular fibrillation, immediate postoperative, and patient had ultimately percutaneous endoscopic gastrostomy and tracheostomy done, later on successfully decannulated. Admitted with decompensated congestive heart failure. Patient had repeat catheterization on 06/25/2016, that shows a triple vessel disease, saphenous vein graft to diagonal patent, saphenous vein graft to right coronary artery patent, occluded saphenous vein graft to circumflex and obtuse marginal 1, occluded left internal mammary artery, but collateral from left anterior descending. At that time, plain balloon angioplasty of left anterior descending was done, which was diffusely diseased, ejection fraction 25% to 30%. Last catheterization on 06/25/2016, which shows a [id number] triple vessel disease. At that time, plain balloon angioplasty of left anterior descending was done. A stent could not be deployed because of tortuosity of vessels, distal diffusely diseased left anterior descending. Admitted with decompensated congestive heart failure, complaining of pain in the leg, history of automatic implantable cardioverter-defibrillator, history of prolonged intubation, tracheal stent status post tracheostomy and later on successfully decannulated, and percutaneous endoscopic gastrostomy was removed. RECOMMENDATIONS: We will start Lasix IV. Continue metolazone. Start IV Primacor. We will get JONAS PVR tomorrow to assess the severity of the peripheral arterial disease. Patient is complaining of claudication. Continue DVT prophylaxis. Continue aspirin. Continue Coreg. Continue digoxin, milrinone, and metolazone. We will cut down the Coreg to 6.25 and we will add low dose of lisinopril as blood pressure and renal function tolerated. We will follow. We will cut down the dose of Coreg to 3.125 b.i.d., so we can push more diuretics. We will get lower extremity arterial bilateral ultrasound with JONAS PVR. We will repeat lipid profile, TSH, hemoglobin A1c, and lab in the morning. Thank you, Dr. Rosas for providing us the opportunity in taking care of patient, Steve Quigley. Ashley Kenny MD
--- NOTE | 2018-03-20 09:14 | CP.PCM.PN ---
Subjective - Date & Time of Evaluation Date of Evaluation: 03/20/18 Time of Evaluation: 06:35 - Subjective Subjective: Awake, no distress, denies chest pain, denies shortness of breath Reason for consultation and follow up: Cardiac evaluation of chest pain and shortness of breath, history of coronary artery disease,status post CABG 5 vessel bypass, congestive heart failure, mitral valve annuloplasty, and AICD. Seen and examined by me and Dr. Kenny Objective - Vital Signs/Intake and Output Vital Signs (last 24 hours): Temp Pulse Resp BP Pulse Ox 97.8 F 90 18 104/63 97 03/20/18 06:00 03/20/18 08:51 03/20/18 06:00 03/20/18 08:51 03/20/18 06:00 Intake and Output: 03/20/18 03/20/18 06:59 18:59 Intake Total 208 340 Output Total 1000 Balance 208 -660 - Medications Medications: Current Medications Albuterol/Ipratropium (Duoneb 3 Mg/0.5 Mg (3 Ml) Ud) 3 ml IH Q6H PRN PRN Reason: Shortness of Breath Aspirin (Aspirin Chewable) 81 mg PO DAILY [facility] Last Admin: 03/19/18 10:22 Dose: 81 mg Atorvastatin Calcium (Lipitor) 80 mg PO DIN [facility] Last Admin: 03/19/18 17:24 Dose: 80 mg Carvedilol (Coreg) 3.125 mg PO BID [facility] Last Admin: 03/19/18 17:24 Dose: 3.125 mg Clopidogrel Bisulfate (Plavix) 75 mg PO DAILY [facility] Last Admin: 03/19/18 10:22 Dose: 75 mg Digoxin (Lanoxin) 0.25 mg PO 1400 [facility] Last Admin: 03/19/18 13:28 Dose: 0.25 mg Enoxaparin Sodium (Lovenox) 30 mg SC DAILY [facility] PRN Reason: Protocol Last Admin: 03/19/18 10:21 Dose: 30 mg Furosemide (Lasix) 40 mg IVP BID [facility] Last Admin: 03/19/18 17:24 Dose: 40 mg Milrinone Lactate/Dextrose (Primacor 20mg/100ml D5w) 100 mls @ 9.068 mls/hr IV .Q11H2M PRN; Protocol; 0.375 MCG/KG/MIN PRN Reason: TITRATE PER MD ORDER Last Admin: 03/20/18 08:51 Dose: 0.375 mcg/kg/min, 9.068 mls/hr Insulin Detemir (Levemir) 35 unit SC HS [facility] Last Admin: 03/19/18 23:11 Dose: 35 units Insulin Human Lispro (Humalog) 10 units SC AC [facility] Last Admin: 03/20/18 08:07 Dose: 10 unit Insulin Human Regular (Humulin R High) 0 units SC ACHS [facility] PRN Reason: Protocol Last Admin: 03/20/18 08:07 Dose: 7 u Lisinopril (Zestril) 2.5 mg PO DAILY [facility] Last Admin: 03/19/18 10:22 Dose: 2.5 mg Metolazone (Zaroxolyn) 5 mg PO DAILY [facility] Last Admin: 03/19/18 10:22 Dose: 5 mg Pantoprazole Sodium (Protonix Ec Tab) 40 mg PO 0600 [facility] Last Admin: 03/20/18 05:26 Dose: 40 mg Spironolactone (Aldactone) 25 mg PO DAILY [facility] Last Admin: 03/19/18 10:22 Dose: 25 mg - Labs Labs: 03/20/18 06:00 03/20/18 06:00 PT 10.8 SECONDS (9.4-12.5) 03/18/18 21:05 INR 0.95 (0.93-1.08) 03/18/18 21:05 APTT 29.5 Seconds (25.1-36.5) 03/18/18 21:05 - Constitutional Appears: No Acute Distress - Eye Exam Eye Exam: Normal appearance - ENT Exam ENT Exam: Mucous Membranes Moist - Respiratory Exam Respiratory Exam: Decreased Breath Sounds, NORMAL BREATHING PATTERN - Cardiovascular Exam Cardiovascular Exam: REGULAR RHYTHM, +S1, +S2 - GI/Abdominal Exam GI & Abdominal Exam: Soft, Normal Bowel Sounds - Extremities Exam Additional comments: 1+ edema - Neurological Exam Neurological Exam: Alert, Awake, Oriented x3 - Psychiatric Exam Psychiatric exam: Normal Affect, Normal Mood - Skin Skin Exam: Intact, Normal Color, Warm Assessment and Plan - Assessment and Plan (Free Text) Assessment: A 52 year old male who came in to the ER due to chest pain and shortness of breath, non-STEMI in 2014 and stent placement in circumflex, went into cardiogenic shock and IABP inserted and transferred to [facility].history of coronary artery disease,status post CABG 5 vessel bypass, post stents, congestive heart failure, mitral valve annuloplasty, and AICD, hypertension,IDDM , former smoker. Admitted for acute decompensated systolic congestive heart failure. complaining of claudication.Will order JONAS and doppler studies of lower extremities. on Primacor. Plan: Denies shortness of breath Denies chest pain Continue Primacor drip On ASA 81 mg daily,Lipitor 80 mg daily,Coreg 3.125 mg BID, Plavix 75 mg daily, Digoxin 0.25 mg daily, Lovenox 30 mg daily, Lasix 40 mg BID, lisinopril 2.5 mg daily, Zaroxylyn 5 mg daily, Aldactone 25 mg daily. JONAS of lower extremities- mildly abnormal right JONAS at rest right SFA, popliteal and trifurcation disease US of lower extremities normal, no evidence of DVT Symptoms improving Stable heart rate and blood pressure Continue current treatment Continue current medications Will follow up Plan and treatment discussed with Dr. Kenny
[2018-03-20] MEDS: Enoxaparin 30 mg Syringe SC SCH (09:16)
[2018-03-20] MEDS: metOLazone 5 MG TAB PO SCH (09:17)
[2018-03-20] MEDS ORDERED: POLYETHYLENE GLYCOL 3350 17 GM/Dose PACKET PO ONE (10:24)
[2018-03-20] MEDS: Digoxin 250 mcg (0.25 mg) Tab PO SCH (13:50)
[2018-03-20 13:53] VITALS: PULSE 90
--- NOTE | 2018-03-20 16:23 | CP.PCM.PN ---
Addendum entered and electronically signed by Melania Jesus DO 03/20/18 19: 58: Nurse called to report the patient is still constipated despite mirilax and colace TID today. Will order Dulcolax RC once. Original Note: <Melania Jesus - Last Filed: 03/20/18 18:45> Subjective - Date & Time of Evaluation Date of Evaluation: 03/20/18 Time of Evaluation: 10:45 - Subjective Subjective: Melania Jesus PGY1 - [employer] Services Specialist - Medicine Progress Note Patient was seen and evaluated at bedside this morning. Patient's is at bedside. Patient is without complaints today. No acute events occurred over night, per patient. Patient was able to tolerate diet without issue. Patient was able to produce urine throughout the day yesterday. Patient reports that he wasn't able to have a bowel movement this morning, and admits to being mildly constipated. Patient otherwise denies any diarrhea, dysuria, nausea, vomiting, fever, chest pain, shortness of breath, numbness and/or tingling in lower extremities. Objective - Vital Signs/Intake and Output Vital Signs (last 24 hours): Temp Pulse Resp BP Pulse Ox 98 F 89 18 110/68 97 03/20/18 11:35 03/20/18 14:00 03/20/18 11:35 03/20/18 11:35 03/20/18 06:00 Intake and Output: 03/20/18 03/20/18 06:59 18:59 Intake Total 208 340 Output Total 1000 Balance 208 -660 - Medications Medications: Current Medications Albuterol/Ipratropium (Duoneb 3 Mg/0.5 Mg (3 Ml) Ud) 3 ml IH Q6H PRN PRN Reason: Shortness of Breath Aspirin (Aspirin Chewable) 81 mg PO DAILY [facility] Last Admin: 03/20/18 09:17 Dose: 81 mg Atorvastatin Calcium (Lipitor) 80 mg PO DIN [facility] Last Admin: 03/19/18 17:24 Dose: 80 mg Carvedilol (Coreg) 3.125 mg PO BID [facility] Last Admin: 03/20/18 09:17 Dose: 3.125 mg Clopidogrel Bisulfate (Plavix) 75 mg PO DAILY [facility] Last Admin: 03/20/18 09:17 Dose: 75 mg Digoxin (Lanoxin) 0.25 mg PO 1400 [facility] Last Admin: 03/20/18 13:50 Dose: 0.25 mg Docusate Sodium (Colace) 100 mg PO TID [facility] Last Admin: 03/20/18 13:49 Dose: 100 mg Enoxaparin Sodium (Lovenox) 30 mg SC DAILY [facility] PRN Reason: Protocol Last Admin: 03/20/18 09:16 Dose: 30 mg Furosemide (Lasix) 40 mg IVP BID [facility] Stop: 03/20/18 23:59 Last Admin: 03/20/18 09:17 Dose: 40 mg Furosemide (Lasix) 40 mg PO 0800,1400 [facility] Milrinone Lactate/Dextrose (Primacor 20mg/100ml D5w) 100 mls @ 9.068 mls/hr IV .Q11H2M PRN; Protocol; 0.375 MCG/KG/MIN PRN Reason: TITRATE PER MD ORDER Stop: 03/21/18 07:00 Last Admin: 03/20/18 08:51 Dose: 0.375 mcg/kg/min, 9.068 mls/hr Insulin Detemir (Levemir) 35 unit SC HS [facility] Last Admin: 03/19/18 23:11 Dose: 35 units Insulin Human Lispro (Humalog) 10 units SC AC [facility] Last Admin: 03/20/18 11:30 Dose: 10 unit Insulin Human Regular (Humulin R High) 0 units SC ACHS [facility] PRN Reason: Protocol Last Admin: 03/20/18 11:31 Dose: 10 u Lisinopril (Zestril) 2.5 mg PO DAILY [facility] Last Admin: 03/20/18 09:17 Dose: 2.5 mg Metolazone (Zaroxolyn) 5 mg PO DAILY [facility] Last Admin: 03/20/18 09:17 Dose: 5 mg Pantoprazole Sodium (Protonix Ec Tab) 40 mg PO 0600 [facility] Last Admin: 03/20/18 05:26 Dose: 40 mg Spironolactone (Aldactone) 25 mg PO DAILY [facility] Last Admin: 03/20/18 09:17 Dose: 25 mg - Labs Labs: 03/20/18 06:00 03/20/18 06:00 PT 10.8 SECONDS (9.4-12.5) 03/18/18 21:05 INR 0.95 (0.93-1.08) 03/18/18 21:05 APTT 29.5 Seconds (25.1-36.5) 03/18/18 21:05 - Constitutional Appears: Well, Non-toxic, No Acute Distress - Head Exam Head Exam: ATRAUMATIC, NORMAL INSPECTION, NORMOCEPHALIC - Eye Exam Eye Exam: EOMI, Normal appearance - ENT Exam ENT Exam: Mucous Membranes Moist, Normal Exam - Neck Exam Neck Exam: Full ROM, Normal Inspection. absent: Lymphadenopathy - Respiratory Exam Respiratory Exam: Clear to Ausculation Bilateral, NORMAL BREATHING PATTERN. absent: Chest Wall Tenderness, Decreased Breath Sounds, Rales, Rhonchi, Wheezes , Respiratory Distress - Cardiovascular Exam Cardiovascular Exam: REGULAR RHYTHM, +S1, +S2 - GI/Abdominal Exam GI & Abdominal Exam: Soft, Normal Bowel Sounds. absent: Tenderness - Extremities Exam Extremities Exam: Full ROM, Pedal Edema. absent: Tenderness Additional comments: Balding of lower extremities appreciated bilaterally +1 pitting edema appreciated bilaterally Dorsalis pedis pulses and posterior tibial pulses are appreciated with doppler ultrasound bilaterally. - Back Exam Back Exam: NORMAL INSPECTION - Neurological Exam Neurological Exam: Alert, Awake, Oriented x3 - Psychiatric Exam Psychiatric exam: Normal Affect, Normal Mood - Skin Skin Exam: Dry, Intact, Normal Color, Warm Assessment and Plan - Assessment and Plan (Free Text) Assessment: 52 year old male with past medical history of hypertension, insulin-dependent Diabetes Mellitus, coronary artery disease status-post 5 vessel bypass, congestive heart failure (CHF) with most recent ejection fraction of 25-30% (), mitral valve anulopathy, and AICD, and COPD presents to [facility] on 03/18/2018 complaining of shortness of breath and left-sided discomfort for 1 day. Patient was admitted to telemetry for further evaluation and treatment of shortness of breath. Shortness of breath likely secondary to pulmonary edema likely secondary to CHF , improved - BNP elevated but at patient's baseline, CXR unchanged from prior admission - Milrinone was started on 03/19 and continued today - Patient is negative 3 liters as of this morning - Patient lost 2 pounds as of this morning - Lasix 40mg IVP given in ED - Discontinue home lasix 40mg PO - Continue Lasix 40mg IVP BID - Continue with metalozone 10 QD - Decreased Coreg, as per cardiology recommendation - Continue with Digoxin 0.25mg QD - Digoxin level 1.1 on 03/19 - Continue strict IO/ Daily weight - Cardiology consulted, recommendations appreciated Claudication likely secondary to peripheral arterial disease - Positive history of extensive tobacco use - Duplex ultrasound (Arterial): Right JONAS mildly abnormal 0.8 (at rest), left resting JONAS is normal at 1.3. Right SFA, popliteal, and/or trifurcation disease - Cardiology consulted, recommendations appreciated Elevated troponins with history of CAD status-post 5 vessel bypass and AICD - Patient is asymptomatic - Will not cath at this time, per cardio - Troponin elevated likely secondary to increased BNP - EKG from 03/19 per cardio report: normal sinus rhythm, with acute ST-T changes noted, poor R-R progression. - Continue home ASA - Continue with home plavix - Continue with home statin - Cardiology consulted, recommendations appreciated Lower extremity edema likely due to chronic renal insufficiency/ Stage 3 CKD vs CHF - Bilateral lower extremity duplex: Negative for DVT bilaterally - Previously documented Cr clearance 40-45% - Cr today: Average Cr ~1.1-1.3; Cr on arrival 1.6 - Resumed spironolactone - Resumed home enalapril - Diuresis as above - Creatinine is 1.6 today - Continue to monitor - Cardiology consulted, recommendations appreciated History of Uncontrolled Diabetes Mellitus, on insulin - Patient received extensive dietary education - 35U Lantus at home; non formulary here - Increased to Levemir 35U HS; Levemir 18U QAM - Continue with Humalog 30U TID - Continue ISS Low Hypertriglyceridemia - Obtained on 03/20: 913 - Patient received extensive dietary education today - Monitor outpatient COPD Exacerbation: - Patient is asymptomatic - Continue Duonebs Q6H PRN Constipation - Patient recieved mirilax and colace TID - Monitor GI/DVT PPx: Protonix/ DAPT as above Patient was seen and evaluated and case discussed with Attending Physician Dr. Alison Jesus PGY1 <Lora Rosas - Last Filed: 03/21/18 15:04> Objective - Vital Signs/Intake and Output Vital Signs (last 24 hours): Temp Pulse Resp BP Pulse Ox 98 F 84 18 115/66 98 03/21/18 11:57 03/21/18 11:57 03/21/18 11:57 03/21/18 11:57 03/21/18 06:00 Intake and Output: 03/21/18 03/21/18 06:59 18:59 Intake Total 267 120 Output Total 1575 1050 Balance -1308 -930 - Labs Labs: 03/21/18 06:00 03/21/18 06:00 PT 10.8 SECONDS (9.4-12.5) 03/18/18 21:05 INR 0.95 (0.93-1.08) 03/18/18 21:05 APTT 29.5 Seconds (25.1-36.5) 03/18/18 21:05 Attending/Attestation - Attestation I have personally seen and examined this patient.: Yes I have fully participated in the care of the patient.: Yes I have reviewed all pertinent clinical information, including history, physical exam and plan: Yes Notes (Text): 03/21/18 13:55 Attending note; Patient seen and examined with resident. Patient's by the bedside. Patient is alert and awake. Denies any chest pain. Shortness of breath improved. leg swelling is improving. Patient is a 52 year old male with past medical history of hypertension, insulin -dependent Diabetes Mellitus, coronary artery disease status-post 5 vessel bypass, history of cardiogenic shock and tracheostomy and PEG placement in the past, congestive systolic heart failure (CHF) with most recent ejection fraction of 25-30% (11/10), mitral valve anulopathy, and AICD, and COPD presents to [facility] on 03/18/2018 complaining of shortness of breath. Acute systolic heart failure. Treated with IV Lasix. Currently on IV Primacor. Mildly elevated troponin. Patient is clinically stable. Patient had cardiac cath in 2016. Case discussed with cardiology in detail. Urine output is in negative balance. Improving weight. Dietary and medication education given. Peripheral vascular disease; patient will get outpatient evaluation and stent placement. Chronic kidney disease; creatinine baseline is 1.5-1.6. Needs outpatient follow- up. Continue aspirin, Plavix, Coreg, digoxin, Lasix, Aldactone. Diabetes; continue Levemir with coverage. Patient follows up with tertiary Center for assisted ventricular device/ transplant list. Advised to follow-up with PMD Dr. Fernández and cardiology Dr. Kenny. Patient needs close follow-up with tertiary care center for further treatment options. 03/21/18 14:00 03/21/18 15:03
[2018-03-20] MEDS: Insulin Detemir 100 units/ml Vial (Levemir) SC SCH (22:04)
[2018-03-21 00:26] VITALS: O2SAT 98
[2018-03-21] MEDS: Pantoprazole 40 mg EC Tab PO SCH (05:10)
[2018-03-21 06:59] LABS: BASO # 0.05 K/mm3 (0.0-2.0); BASO % 0.4 % (0.0-3.0); EOS # 0.2 (0.0-0.7); EOS % 1.6 % (1.5-5.0); GRAN # 8.54 (1.4-6.5); GRAN % 73.1 % (50.0-68.0); HEMOGLOBIN 10.6 g/dL (14.0-18.0); LYMPH % 16.9 % (22.0-35.0); MEAN CELL VOLUME 76.7 fl (80.0-105.0); MEAN CORPUSCULAR HEMOGLOBIN 25.7 pg (25.0-35.0); MEAN CORPUSCULAR HGB CONC 33.5 g/dl (31.0-37.0); MEAN PLATELET VOLUME 8.9 fl (7.0-11.0); MONO # 0.9 (0.1-0.6); RBC 4.12 10^6/uL (3.5-6.1); RED CELL DISTRIBUTION WIDTH 14.2 % (11.5-14.5); WHITE BLOOD COUNT 11.7 10^3/ul (4.5-11.0)
[2018-03-21 07:13] LABS: ALB/GLOB RATIO 1.3 (1.1-1.8); ALBUMIN 4.3 g/dL (3.0-4.8); CALCIUM 9.3 mg/dL (8.4-10.5)
[2018-03-21] MEDS: Insulin Lispro 1 UNITS/0.01 ML SC SCH ×2 (08:28→12:03)
[2018-03-21] MEDS: Insulin Reg-HIGH-Coverage SC SCH ×2 (08:28→12:03)
[2018-03-21] MEDS: Enoxaparin 30 mg Syringe SC SCH (09:35)
[2018-03-21] MEDS: metOLazone 5 MG TAB PO SCH (09:36)
[2018-03-21 11:57] VITALS: BP 115/66; PULSE 84; RESP 18; TEMP 98
--- NOTE | 2018-03-21 12:21 | PN ---
DATE: 03/21/2018 REASON FOR CONSULTATION AND FOLLOWUP: Acute decompensated congestive heart failure secondary to systolic dysfunction, history of coronary artery disease, cardiac evaluation. SUBJECTIVE: Patient denies any chest pain, shortness of breath, or any palpitation. OBJECTIVE: GENERAL: Not in apparent distress. VITAL SIGNS: Temperature afebrile, heart rate 86, and blood pressure 111/69. HEENT: PERRLA, intact. NECK: Supple. No carotid bruit or thyromegaly. CHEST: Clear to auscultation. HEART: S1 and S2, regular. ABDOMEN: Soft. EXTREMITIES: Clubbing and cyanosis, negative. LABORATORY DATA: Blood workup as follows: WBC 11.7, hemoglobin 10, hematocrit 31.6, and platelet count 242. Chemistry shows sodium 130, potassium 4.5, chloride 91, carbon dioxide 27, anion gap of 19. BUN 53, creatinine 1.6. Borderline troponin positive secondary to renal insufficiency as well as underlying coronary artery disease. IMPRESSION: A 52-year-old male with a past medical history significant for coronary artery disease, status post [id number] myocardial infarction, status post cardiogenic shock, status post 5-vessel bypass, mitral valve annuloplasty, and automatic implantable cardioverter-defibrillator in the past. Admitted with decompensated congestive heart failure. Diabetes, hypertension, hyperlipidemia, history of prolonged intubation after coronary artery bypass graft, history of tracheostomy and tracheal stenosis, history of percutaneous endoscopic gastrostomy which successfully decannulated, and removal of the percutaneous endoscopic gastrostomy. Patient was treated with intravenous Primacor, stable. Patient had ankle-brachial index/pulse volume recording done that showed significant disease on right femoral and anterior tibial trunk. PLAN: Continue aggressive medical treatment. Discontinue telemetry. Possible discharge home today. We will discontinue IV Lasix, change to p.o. Continue spironolactone. Continue Lasix 40 mg at 8 o'clock and 2 p.m. Continue digoxin. Continue Coreg 3.125 mg. Continue atorvastatin. Discontinue telemetry. Continue lisinopril. Possible discharge home today and we will schedule peripheral angiogram on 04/10/2018, at 7:30. Discussed with the patient. Discussed with the . Thank you, Dr. Rosas for providing us the opportunity in taking care of patient, Setve Quigley. Ashley Kenny MD cc: Lora Rosas MD [facility] # [phone]
--- NOTE | 2018-03-21 18:52 | CP.PCM.DIS ---
<Melania Jesus - Last Filed: 03/21/18 19:36> Provider - Provider Date of Admission: 03/18/18 22:42 Attending physician: Lora Rosas MD Primary care physician: Franko Hansen Consults: Cardiology: Dr. Kenny Time Spent in preparation of Discharge (in minutes): 45 Diagnosis - Discharge Diagnosis (1) Acute CHF (congestive heart failure) Status: Chronic Priority: Medium (2) PAD (peripheral artery disease) Status: Acute Priority: Medium (3) Elevated brain natriuretic peptide (BNP) level Status: Acute Priority: Medium (4) CAD (coronary artery disease) Status: Chronic Priority: Medium (5) Hypertension Status: Chronic Priority: Medium (6) Uncontrolled diabetes mellitus Status: Chronic Priority: Medium Hospital Course - Lab Results Lab Results: Most Recent Lab Values WBC 11.7 10^3/ul (4.5-11.0) H 03/21/18 06:00 RBC 4.12 10^6/uL (3.5-6.1) 03/21/18 06:00 Hgb 10.6 g/dL (14.0-18.0) L 03/21/18 06:00 Hct 31.6 % (42.0-52.0) L 03/21/18 06:00 MCV 76.7 fl (80.0-105.0) L 03/21/18 06:00 MCH 25.7 pg (25.0-35.0) 03/21/18 06:00 MCHC 33.5 g/dl (31.0-37.0) 03/21/18 06:00 RDW 14.2 % (11.5-14.5) 03/21/18 06:00 Plt Count 242 10^3/uL (120.0-450.0) 03/21/18 06:00 MPV 8.9 fl (7.0-11.0) 03/21/18 06:00 Gran % 73.1 % (50.0-68.0) H 03/21/18 06:00 Lymph % (Auto) 16.9 % (22.0-35.0) L 03/21/18 06:00 [place] % (Auto) 8.0 % (1.0-6.0) H 03/21/18 06:00 Eos % (Auto) 1.6 % (1.5-5.0) 03/21/18 06:00 Baso % (Auto) 0.4 % (0.0-3.0) 03/21/18 06:00 Gran # 8.54 (1.4-6.5) H 03/21/18 06:00 Lymph # (Auto) 2.0 (1.2-3.4) 03/21/18 06:00 [place] # (Auto) 0.9 (0.1-0.6) H 03/21/18 06:00 Eos # (Auto) 0.2 (0.0-0.7) 03/21/18 06:00 Baso # (Auto) 0.05 K/mm3 (0.0-2.0) 03/21/18 06:00 PT 10.8 SECONDS (9.4-12.5) 03/18/18 21:05 INR 0.95 (0.93-1.08) 03/18/18 21:05 APTT 29.5 Seconds (25.1-36.5) 03/18/18 21:05 Sodium 132 mmol/L (132-148) 03/21/18 06:00 Potassium 4.5 mmol/L (3.6-5.0) 03/21/18 06:00 Chloride 91 mmol/L (98-107) L 03/21/18 06:00 Carbon Dioxide 27 mmol/L (21-33) 03/21/18 06:00 Anion Gap 19 (10-20) 03/21/18 06:00 BUN 53 mg/dL (7-21) H 03/21/18 06:00 Creatinine 1.6 mg/dl (0.8-1.5) H 03/21/18 06:00 Est GFR ( Amer) 55 03/21/18 06:00 Est GFR (Non-Af Amer) 46 03/21/18 06:00 POC Glucose (mg/dL) 211 mg/dL (65-110) H 03/21/18 11:10 Random Glucose 285 mg/dL (70-110) H 03/21/18 06:00 Hemoglobin A1c 10.9 % (4.2-6.5) H 03/19/18 09:00 Calcium 9.3 mg/dL (8.4-10.5) 03/21/18 06:00 Phosphorus 4.1 mg/dL (2.5-4.5) 03/20/18 06:00 Magnesium 1.9 mg/dL (1.7-2.2) 03/20/18 06:00 Total Bilirubin 0.6 mg/dL (0.2-1.3) 03/21/18 06:00 AST 30 U/L (17-59) 03/21/18 06:00 ALT 36 U/L (7-56) 03/21/18 06:00 Alkaline Phosphatase 106 U/L (38-126) 03/21/18 06:00 Lactate Dehydrogenase 559 U/L (333-699) 03/18/18 21:05 Total Creatine Kinase 151 U/L (35-230) 03/19/18 03:10 Troponin I 0.71 ng/mL H* D 03/19/18 09:00 NT-Pro-B Natriuret Pep 1010 pg/mL (0-450) H 03/18/18 21:05 Total Protein 7.5 g/dL (5.8-8.3) 03/21/18 06:00 Albumin 4.3 g/dL (3.0-4.8) 03/21/18 06:00 Globulin 3.2 gm/dL 03/21/18 06:00 Albumin/Globulin Ratio 1.3 (1.1-1.8) 03/21/18 06:00 Triglycerides 913 mg/dL (35-160) H 03/20/18 06:00 Cholesterol 168 mg/dL (130-200) 03/20/18 06:00 LDL Cholesterol Direct < 30 mg/dL (0-129) 03/20/18 06:00 HDL Cholesterol 23 mg/dL (29-60) L 03/20/18 06:00 Procalcitonin 0.10 NG/ML (0.19-0.49) L 03/19/18 03:10 TSH 3rd Generation 1.92 mIU/mL (0.46-4.68) 03/20/18 06:00 Urine Color Light yellow (YELLOW) 03/19/18 03:30 Urine Appearance Cloudy (CLEAR) 03/19/18 03:30 Urine pH 6.0 (4.7-8.0) 03/19/18 03:30 Ur Specific [place] <= 1.005 (1.005-1.035) 03/19/18 03:30 Urine Protein Negative mg/dL (<30 mg/dL) 03/19/18 03:30 Urine Glucose (UA) 100 mg/dL (NEGATIVE) H 03/19/18 03:30 Urine Ketones Negative mg/dL (NEGATIVE) 03/19/18 03:30 Urine Blood Negative (NEGATIVE) 03/19/18 03:30 Urine Nitrate Negative (NEGATIVE) 03/19/18 03:30 Urine Bilirubin Negative (NEGATIVE) 03/19/18 03:30 Urine Urobilinogen 0.2 E.U./dL (<1 E.U./dL) 03/19/18 03:30 Ur Leukocyte Esterase Negative Bishnu/uL (NEGATIVE) 03/19/18 03:30 Ur Random Creatinine 19 mg/dL 03/19/18 03:30 Ur Random Urea Nitrogn 186 mg/dL 03/19/18 03:30 Digoxin 1.1 ng/mL (0.8-2.0) 03/19/18 03:10 - Hospital Course Hospital Course: Melania Jesus D.O. PGY1 - Discharge Summary Hospital Course 52-year-old male with past medical history of hypertension, insulin-dependent Diabetes Mellitus, coronary artery disease status-post 5 vessel bypass, congestive heart failure (CHF) with most recent ejection fraction of 25-30% (), mitral valve anulopathy, and AICD, and COPD presents to [facility] on 03/18/2018 complaining of shortness of breath and left-sided discomfort for 1 day. Patient was admitted to telemetry for further evaluation and treatment of shortness of breath. Please see patient's chart for complete details. On admission, the patient was found to have pulmonary edema. BNP was elevated, but at patient's baseline. Chest x-ray was obtained, and was unchanged from prior admission. Patient's history revealed decreased urine output, and on physical exam, the patient was found to have lower extremity edema and congestion on auscultation. Patient was started on Lasix IVP, and per cardiology , home coreg dose was decreased. Otherwise, all other home meds were continued. The patient's in's and out's were monitored closely. Cardiology was consulted, and started the patient on milrinone drip on 03/19. The following day, the patient lost about 2 pounds, and measured to loser about 2-3liters of fluid. On day of discharge, the patient was clear to auscultation bilaterally, and hemodynamically stable. Patient has history of CAD status post 5 vessel bypass and AICD. Patient was asymptomatic. EKG was obtained on 03/19 revealed normal sinus rhythm with acute ST-T changes and poor R-R progression. Labs were obtained and revealed elevated troponins likely secondary to elevated BNP. Patient was continued on home aspirin, plavix, and statin. Cardiology was consulted, and did not recommend a cath at this time. Physical exam revealed bilateral lower extremity pitting edema. Patient was already treated with lasix. To rule out DVT, bilateral lower extremity duplex was obtained, which was negative. Patient's history also revealed extensive tobacco use (in the past) and claudication, and on physical exam, the right dorsalis pedis pulse were only appreciated with doppler. Thus, bilateral arterial duplex was obtained, which revealed right JONAS mildly abnormal 0.8 (at rest), left resting JONAS is normal at 1.3. Right SFA, popliteal, and/or trifurcation disease, as per report. Patient is to follow up with cardiology on April 10 at 8:30AM for peripheral stent procedure, as per cardiology. Patient also has history of diabetes mellitus, which was found to be uncontrolled on admission. Patient was treated with insulin sliding scale, and received diabetes education. Triglycerides levels were obtained and elevated at 913, and during this admission, the patient received extensive dietary education. Furthermore the patient has history of COPD. Patient was treated with duonebs, and was asymptomatic on day of discharge. On the day of discharge, the patient was asymptomatic, hemodynamically stable, and medically optimized. Patient was able to tolerate diet without issue, and was able to produce urine throughout the day. Patient denied chest pain, shortness of breath and/or leg pain. Patient is stable to go home, and he was cleared for discharge by all consultants.Patient is to follow-up with primary care physician within 3-5 days. Patient to continue all other medications as prescribed to him with the changes listed below. Patient was advised low sodium diet and to monitor his weight daily. Patient given written instructions. All instructions were explained to the patient in detail. Patient both understood and agreed to all instructions. Please see full chart for more detail. Discharge Medications Aspirin 81mg PO Daily - Rx Carvedilol 3.125mg PO BID - Rx Plavix 75mg PO Daily - Rx Digoxin 0.25mg PO Daily Vasotec 5mg PO BID Lasix 40mg PO BID #28 - Rx Lantus 35 units SC HS Humalog 30 units SC TID Metolazone 10mg PO Daily Protonix 40mg PO Daily - Rx Crestor 40mg PO Daily Aldactone 25mg PO Daily - Rx Patient was seen and evaluated and case discussed with Attending Physician Dr. Alison Jesus PGY1 Discharge Exam - Head Exam Head Exam: ATRAUMATIC, NORMAL INSPECTION, NORMOCEPHALIC - Eye Exam Eye Exam: Normal appearance, PERRL Pupil Exam: NORMAL ACCOMODATION - ENT Exam ENT Exam: Mucous Membranes Moist - Neck Exam Neck exam: Full Rom, Normal Inspection - Respiratory Exam Respiratory Exam: Clear to PA & Lateral, NORMAL BREATHING PATTERN, UNREMARKABLE. absent: Rales, Wheezes - Cardiovascular Exam Cardiovascular Exam: REGULAR RHYTHM, +S1, +S2. absent: Systolic Murmur - GI/Abdominal Exam GI & Abdominal Exam: Normal Bowel Sounds, Soft, Unremarkable. absent: Tenderness - Extremities Exam Extremities exam: normal inspection Additional comments: Dorsalis pedis pulses and posterior tibial pulses are appreciated with doppler ultrasound bilaterally. - Back Exam Back exam: FULL ROM. absent: tenderness - Neurological Exam Neurological exam: Alert, Normal Gait, Oriented x3 - Psychiatric Exam Psychiatric exam: Normal Affect, Normal Mood - Skin Skin Exam: Dry, Intact, Normal Color, Warm Discharge Plan - Discharge Medications Prescriptions: Carvedilol [Coreg] 3.125 mg PO BID #60 tab - Follow Up Plan Condition: STABLE Disposition: HOME/ ROUTINE Patient education suggested?: Yes Instructions: Heart Healthy Diet, Preventing Falls in the Older Adult, Heart Failure, Adult (DC), Peripheral Vascular (Arterial) Disease (DC), Peripheral Vascular Stenting (DC), Shortness of Breath (Dyspnea) (DC), Chest Pain (DC), Pacemaker (GEN), Pulmonary Edema (DC), Pulmonary Edema (GEN) Additional Instructions: 1. Please follow-up with you primary care physician within 3-5 days 2. Please follow-up with cardiology for an appointment next week with Dr. Kenny 3. You have an appointment for peripheral stenting on April 10 at 8:30AM. All arrangements will be made by full stack php developer 4. Continue all home medications as prescribed 5. Stick to low sodium, low carbohydrate, and low fat diet and continue to monitor blood glucose at least once a day 6. Proceed to ED if symptoms return Referrals: Ashley Kenny MD [Staff Provider] - Franko Hansen MD [Primary Care Provider] - <Lora Rosas - Last Filed: 03/22/18 14:23> Provider - Provider Date of Admission: 03/18/18 22:42 Attending physician: Lora Rosas MD [facility] Course - Lab Results Lab Results: Most Recent Lab Values WBC 11.7 10^3/ul (4.5-11.0) H 03/21/18 06:00 RBC 4.12 10^6/uL (3.5-6.1) 03/21/18 06:00 Hgb 10.6 g/dL (14.0-18.0) L 03/21/18 06:00 Hct 31.6 % (42.0-52.0) L 03/21/18 06:00 MCV 76.7 fl (80.0-105.0) L 03/21/18 06:00 MCH 25.7 pg (25.0-35.0) 03/21/18 06:00 MCHC 33.5 g/dl (31.0-37.0) 03/21/18 06:00 RDW 14.2 % (11.5-14.5) 03/21/18 06:00 Plt Count 242 10^3/uL (120.0-450.0) 03/21/18 06:00 MPV 8.9 fl (7.0-11.0) 03/21/18 06:00 Gran % 73.1 % (50.0-68.0) H 03/21/18 06:00 Lymph % (Auto) 16.9 % (22.0-35.0) L 03/21/18 06:00 [place] % (Auto) 8.0 % (1.0-6.0) H 03/21/18 06:00 Eos % (Auto) 1.6 % (1.5-5.0) 03/21/18 06:00 Baso % (Auto) 0.4 % (0.0-3.0) 03/21/18 06:00 Gran # 8.54 (1.4-6.5) H 03/21/18 06:00 Lymph # (Auto) 2.0 (1.2-3.4) 03/21/18 06:00 [place] # (Auto) 0.9 (0.1-0.6) H 03/21/18 06:00 Eos # (Auto) 0.2 (0.0-0.7) 03/21/18 06:00 Baso # (Auto) 0.05 K/mm3 (0.0-2.0) 03/21/18 06:00 PT 10.8 SECONDS (9.4-12.5) 03/18/18 21:05 INR 0.95 (0.93-1.08) 03/18/18 21:05 APTT 29.5 Seconds (25.1-36.5) 03/18/18 21:05 Sodium 132 mmol/L (132-148) 03/21/18 06:00 Potassium 4.5 mmol/L (3.6-5.0) 03/21/18 06:00 Chloride 91 mmol/L (98-107) L 03/21/18 06:00 Carbon Dioxide 27 mmol/L (21-33) 03/21/18 06:00 Anion Gap 19 (10-20) 03/21/18 06:00 BUN 53 mg/dL (7-21) H 03/21/18 06:00 Creatinine 1.6 mg/dl (0.8-1.5) H 03/21/18 06:00 Est GFR ( Amer) 55 03/21/18 06:00 Est GFR (Non-Af Amer) 46 03/21/18 06:00 POC Glucose (mg/dL) 211 mg/dL (65-110) H 03/21/18 11:10 Random Glucose 285 mg/dL (70-110) H 03/21/18 06:00 Hemoglobin A1c 10.9 % (4.2-6.5) H 03/19/18 09:00 Calcium 9.3 mg/dL (8.4-10.5) 03/21/18 06:00 Phosphorus 4.1 mg/dL (2.5-4.5) 03/20/18 06:00 Magnesium 1.9 mg/dL (1.7-2.2) 03/20/18 06:00 Total Bilirubin 0.6 mg/dL (0.2-1.3) 03/21/18 06:00 AST 30 U/L (17-59) 03/21/18 06:00 ALT 36 U/L (7-56) 03/21/18 06:00 Alkaline Phosphatase 106 U/L (38-126) 03/21/18 06:00 Lactate Dehydrogenase 559 U/L (333-699) 03/18/18 21:05 Total Creatine Kinase 151 U/L (35-230) 03/19/18 03:10 Troponin I 0.71 ng/mL H* D 03/19/18 09:00 NT-Pro-B Natriuret Pep 1010 pg/mL (0-450) H 03/18/18 21:05 Total Protein 7.5 g/dL (5.8-8.3) 03/21/18 06:00 Albumin 4.3 g/dL (3.0-4.8) 03/21/18 06:00 Globulin 3.2 gm/dL 03/21/18 06:00 Albumin/Globulin Ratio 1.3 (1.1-1.8) 03/21/18 06:00 Triglycerides 913 mg/dL (35-160) H 03/20/18 06:00 Cholesterol 168 mg/dL (130-200) 03/20/18 06:00 LDL Cholesterol Direct < 30 mg/dL (0-129) 03/20/18 06:00 HDL Cholesterol 23 mg/dL (29-60) L 03/20/18 06:00 Procalcitonin 0.10 NG/ML (0.19-0.49) L 03/19/18 03:10 TSH 3rd Generation 1.92 mIU/mL (0.46-4.68) 03/20/18 06:00 Urine Color Light yellow (YELLOW) 03/19/18 03:30 Urine Appearance Cloudy (CLEAR) 03/19/18 03:30 Urine pH 6.0 (4.7-8.0) 03/19/18 03:30 Ur Specific [place] <= 1.005 (1.005-1.035) 03/19/18 03:30 Urine Protein Negative mg/dL (<30 mg/dL) 03/19/18 03:30 Urine Glucose (UA) 100 mg/dL (NEGATIVE) H 03/19/18 03:30 Urine Ketones Negative mg/dL (NEGATIVE) 03/19/18 03:30 Urine Blood Negative (NEGATIVE) 03/19/18 03:30 Urine Nitrate Negative (NEGATIVE) 03/19/18 03:30 Urine Bilirubin Negative (NEGATIVE) 03/19/18 03:30 Urine Urobilinogen 0.2 E.U./dL (<1 E.U./dL) 03/19/18 03:30 Ur Leukocyte Esterase Negative Bishnu/uL (NEGATIVE) 03/19/18 03:30 Ur Random Creatinine 19 mg/dL 03/19/18 03:30 Ur Random Urea Nitrogn 186 mg/dL 03/19/18 03:30 Digoxin 1.1 ng/mL (0.8-2.0) 03/19/18 03:10 Attending/Attestation - Attestation I have personally seen and examined this patient.: Yes I have fully participated in the care of the patient.: Yes I have reviewed all pertinent clinical information, including history, physical exam and plan: Yes Notes (Text): Attending note; Patient seen and examined with resident. Patient is alert and awake. Denies any chest pain. Shortness of breath improved. leg swelling is improving. Patient is a 52 year old male with past medical history of hypertension, insulin -dependent Diabetes Mellitus, coronary artery disease status-post 5 vessel bypass, history of cardiogenic shock and tracheostomy and PEG placement in the past, congestive systolic heart failure (CHF) with most recent ejection fraction of 25-30% (11/10), mitral valve anulopathy, and AICD, and COPD presents to [facility] on 03/18/2018 complaining of shortness of breath. Admitted with Acute systolic heart failure. Treated with IV Lasix and IV Primacor. Patient clinically improved. Weight decreased. Leg swelling improved. Dietary and medication education given. Follow-up education given. Peripheral vascular disease; patient will get outpatient evaluation and stent placement by Dr. Kenyn. Appointment given. Chronic kidney disease; creatinine baseline is 1.5-1.6. Needs outpatient follow- up. Continue aspirin, Plavix, Coreg, digoxin, Lasix, Aldactone. Diabetes; continue home insulin regimen. Patient follows up with tertiary Center for assisted ventricular device/ to get on transplant list. Advised to follow-up with PMD Dr. Fernández and cardiology Dr. Kenny. Patient needs close follow-up with tertiary care center for further treatment options.
== END 2018-03-21 13:10 | disposition home or self-care (01) | DRG 291 ==
LOC: ED 20:34 → ERH 22:42 → 2RNO 03-19 01:28
PROVIDERS: ADMIT Internal Medicine; ATTEND Internal Medicine
DX: I13.0 Hypertensive heart and chronic kidney disease with heart failure and stage 1 through stage 4 chronic kidney disease, or unspecified chronic kidney disease (principal); I50.23 Acute on chronic systolic (congestive) heart failure; J44.1 Chronic obstructive pulmonary disease with (acute) exacerbation; I25.810 Atherosclerosis of coronary artery bypass graft(s) without angina pectoris; I27.20 Pulmonary hypertension, unspecified; I42.9 Cardiomyopathy, unspecified; E11.22 Type 2 diabetes mellitus with diabetic chronic kidney disease; N18.3 Chronic kidney disease, stage 3 (moderate); E11.51 Type 2 diabetes mellitus with diabetic peripheral angiopathy without gangrene; E11.65 Type 2 diabetes mellitus with hyperglycemia; E78.1 Pure hyperglyceridemia; I25.10 Atherosclerotic heart disease of native coronary artery without angina pectoris; I08.1 Rheumatic disorders of both mitral and tricuspid valves; K59.00 Constipation, unspecified; Z79.82 Long term (current) use of aspirin; Z79.4 Long term (current) use of insulin; Z95.810 Presence of automatic (implantable) cardiac defibrillator; I25.2 Old myocardial infarction; Z93.0 Tracheostomy status; Z87.891 Personal history of nicotine dependence; Z95.5 Presence of coronary angioplasty implant and graft; Z95.1 Presence of aortocoronary bypass graft

== ENCOUNTER 2018-04-10 06:04 | Day surgery (SDC) | payer OTHER, MEDICARE ==
[2018-03-28 12:09] VITALS: BMI 30.4
--- NOTE | 2018-04-10 04:27 | HP ---
Copied To: Ashley Kenny MD Attending MD: Ashley Kenny MD REASON FOR ADMISSION: Peripheral angiogram and possible angioplasty of right SFA through the left femoral artery access. BRIEF CLINICAL HISTORY: This is a 52-year-old male with an extensive history of coronary artery disease, history of non-STEMI, history of cardiogenic shock, history of intraaortic balloon pump and PTCA circumflex and then patient was transferred to [facility] for PTCA of the patient's 5-vessel bypass and annuloplasty done. Postop course was complicated by Vfib arrest, status post automatic implantable cardioverter-defibrillator was placed, history of congestive heart failure, ischemic cardiomyopathy, prolonged intubation, status post tracheostomy, status post PEG, later on decannulation and the PEG was removed. Recently, patient admitted with decompensated congestive heart failure complaint, she was complaining of claudication. So, the patient underwent JONAS and PVR that were severely decreased and shows mildly abnormal JONAS of 0.8 in the right, right SFA popliteal trifurcation disease; whereas left JONAS 1.3 consistent with right SFA and popliteal trifurcation disease. PAST MEDICAL HISTORY: Significant for coronary artery disease as mentioned in 2014, status post STEMI in 08/06/2015; far away, the patient had his emergency PTCA of the circumflex done, intraaortic balloon pump was placed because of the cardiogenic shock and transferred to [facility] where the patient's 5-vessel bypass and MVR done, prolonged intubation as mentioned and with second intention, a sternotomy scar was closed, PEG was placed and tracheostomy was done. Multiple attempts were made to decannulate; ultimately, the patient got subsequently decannulated and his AICD done. MOST RECENT CARDIAC WORKUP: As follows: The patient had a MUGA scan done on 10/21/2015, ejection fraction 40%. Last echo on 11/12/2017 when the patient admitted with decompensated congestive heart failure, ejection fraction 25% to 30%. RV function is mildly reduced. No aortic regurgitation present, no aortic stenosis, [id number] mitral regurgitation, though patient's mitral annuloplasty was done. Moderate tricuspid regurgitation with RV systolic pressure of 56 consistent with moderate pulmonary hypertension. SOCIAL HISTORY: Denies any smoking. Denies any history of alcohol abuse. CURRENT MEDICATIONS: Patient is taking at home, spironolactone 25 mg daily, Crestor 10 mg daily, Protonix, multivitamin, 10 mg metolazone that is Zaroxolyn daily, insulin, digoxin 0.25, Plavix 75 mg daily, Coreg 3.125 mg, aspirin 81 mg daily, and DuoNeb nebulizer treatment. ALLERGIES: NO KNOWN DRUG ALLERGIES. REVIEW OF SYSTEMS: As per HPI. PHYSICAL EXAMINATION: As follows; GENERAL: Height of the patient is 5 feet 4 inches, weight of the patient is 177 pounds, body mass index 30.4 kg/ sq m. HEENT: PERRLA. Extraocular muscles intact. NECK: Supple. No carotid bruits or thyromegaly. CHEST: Clear to auscultation. HEART: S1 and S2, regular. ABDOMEN: Soft. EXTREMITIES: Clubbing and cyanosis negative. LABORATORY DATA: Last blood workup available in the system was 03/21/2018 that showed WBC 11.7, hemoglobin 10, hematocrit 31.6, and platelet count was 242. Chemistry at that time shows that is on 03/21/2018 sodium 130, potassium 4.5, chloride 91, carbon dioxide 27, anion gap of 19, BUN 53, creatinine 1.6. JONAS, PVR were done dated 03/19/2018 that revealed mildly abnormal right JONAS 0.8, left JONAS 1.3, mildly abnormal JONAS on the left where the grossly abnormal JONAS with right SFA popliteal trunk trifurcation disease. The patient has a last catheterization done dated 06/25/2016 that revealed [place] triple vessel disease, patent SVG to diagonal 1, patent SVG to RCA, occluded SVG to circ and OM1, occluded MENDOZA to LAD with bridge , decreased LV function ejection fraction 25% to 30%, EDP with a range of 18 to 20. Attempted PTCA of LAD through the MENDOZA and able to maintain good flow after POBA, LAD diffusely diseased. Recommendation, aggressive medical treatment, add on Ranexa plus digoxin RAVEN inhibitor dated 06/25/2016. IMPRESSION: Severe peripheral arterial disease, right superficial femoral artery popliteal trunk disease, diabetes, hypertension, hyperlipidemia, ischemic cardiomyopathy, status post coronary artery bypass graft, status post cardiogenic shock, chronic kidney disease, anemia. RECOMMENDATIONS: We will hydrate the patient. Continue aspirin and Plavix. We will do the peripheral angiogram from left femoral artery to right PTCA, possible SFA after the angiogram, further recommendations made after the angiogram. Thank you, Dr. Kelly for providing us the opportunity in taking care of the patient, Steve Quigley. Ashley Kenny MD cc: Gabbie Kelly DO
[2018-04-10 06:54] LABS: BASO # 0.05 K/mm3 (0.0-2.0); BASO % 0.5 % (0.0-3.0); EOS # 0.2 (0.0-0.7); EOS % 1.8 % (1.5-5.0); GRAN # 7.77 (1.4-6.5); HEMOGLOBIN 10.4 g/dL (14.0-18.0); LYMPH # 1.8 (1.2-3.4); LYMPH % 17.1 % (22.0-35.0); MEAN CELL VOLUME 79.1 fl (80.0-105.0); MEAN CORPUSCULAR HEMOGLOBIN 25.9 pg (25.0-35.0); MEAN CORPUSCULAR HGB CONC 32.8 g/dl (31.0-37.0); MEAN PLATELET VOLUME 8.9 fl (7.0-11.0); MONO # 0.7 (0.1-0.6); MONO % 6.6 % (1.0-6.0); RBC 4.01 10^6/uL (3.5-6.1); RED CELL DISTRIBUTION WIDTH 14.4 % (11.5-14.5); WHITE BLOOD COUNT 10.5 10^3/ul (4.5-11.0)
[2018-04-10 07:10] LABS: BLOOD UREA NITROGEN 44 mg/dL (7-21); CALCIUM 9.4 mg/dL (8.4-10.5); GFR AFRICAN-AMERICAN > 60; GFR NON-AFRICAN AMERICAN 53; HDL CHOLESTEROL 24 mg/dL (29-60)
[2018-04-10 07:21] LABS: LDL CHOLESTEROL 39 mg/dL (0-129)
[2018-04-10 07:24] LABS: INR 0.95; PARTIAL THROMBOPLASTIN TIME 28.6 Seconds (25.1-36.5); PROTHROMBIN TIME 10.9 SECONDS (9.4-12.5)
[2018-04-10] MEDS ORDERED: Iohexol 350 MG/100 ML VIAL ONE (09:58)
[2018-04-10] MEDS ORDERED: Iodixanol 320 MG/ML 200 ML BOTTLE IV ONE ×2 (09:58→10:21)
[2018-04-10] MEDS ORDERED: Lidocaine PF 2% (5 ml) Inj (For Cardiac Arrhy) ONE (09:58)
[2018-04-10] MEDS ORDERED: Verapamil 2 ML ONE (10:15)
[2018-04-10] MEDS ORDERED: Nitroglycerin 50mg in D5W 50 MG/250 ML BOTTLE IV ONE (10:15)
[2018-04-10] MEDS ORDERED: Midazolam 2 MG/2 ML VIAL ONE (10:29)
[2018-04-10] MEDS ORDERED: Sodium Chloride 0.9% 1,000 ML IV SCH (12:15)
[2018-04-10] MEDS ORDERED: Albuterol 0.042% Inhal Sol (1.25 mg/3 mL) UD IH PRN (12:18)
--- NOTE | 2018-04-10 13:23 | CARD ---
APPROVED REPORT Date of service: 04/10/2018 EKG Measurement Heart [id number] <Conclusion> Sinus rhythm with occasional premature ventricular complexes Possible Lateral infarct, age undetermined Possible Inferior infarct, age undetermined Abnormal ECG
[2018-04-10 13:24] VITALS: RESP 18; TEMP 98
[2018-04-10] MEDS ORDERED: Insulin Lispro 1 UNITS/0.01 ML SC SCH (14:00)
--- NOTE | 2018-04-10 14:48 | CPOSTOP ---
Copied To: Ashley Kenny MD Attending MD: Ashley Kenny MD DATE: 04/10/2018 PHYSICIAN: Ashley Kenny MD SYSTEM ANALYST: Heaven Yoo, emg technician, [place]. TYPE OF ANESTHESIA: Moderate conscious sedation, total 2 mg of Versed, 100 of fentanyl given, periodically started 1 mg of Versed and 50 of fentanyl. PRE-PROCEDURE DIAGNOSIS: Severe peripheral arterial disease. PROCEDURE PERFORMED: 1. Peripheral angiogram. 2. Atherectomy with CSI of right superficial femoral artery and distal popliteal trunk. 3. Percutaneous transluminal angioplasty with drug coated balloon of distal superficial femoral artery. 4. Plain balloon angioplasty of popliteal trunk at the trifurcation. FINDINGS: Severe peripheral arterial disease on right superficial femoral artery as well as popliteal trunk. FINAL DIAGNOSIS: Bilateral peripheral arterial disease, More on Right than on left. POST PROCEDURE CONDITION: Patient's condition is stable. VASCULAR ACCESS SITE: Left femoral artery. CLOSURE DEVICE: Mynx applied on the left femoral artery. TOTAL RADIATION DOSE: 04262.2. FLUORO TIME: 26.2 minutes. Ashley Kenny MD [email or web address]
[2018-04-10 14:57] VITALS: O2SAT 98
[2018-04-10] MEDS ORDERED: Insulin Reg-LOW-Coverage SC SCH (16:30)
[2018-04-10 17:09] LABS: BASO # 0.05 K/mm3 (0.0-2.0); BASO % 0.5 % (0.0-3.0); EOS # 0.2 (0.0-0.7); EOS % 1.9 % (1.5-5.0); GRAN # 8.01 (1.4-6.5); GRAN % 74.1 % (50.0-68.0); HEMOGLOBIN 11.5 g/dL (14.0-18.0); LYMPH # 1.9 (1.2-3.4); LYMPH % 17.2 % (22.0-35.0); MEAN CELL VOLUME 79.2 fl (80.0-105.0); MEAN CORPUSCULAR HGB CONC 32.8 g/dl (31.0-37.0); MEAN PLATELET VOLUME 8.5 fl (7.0-11.0); MONO # 0.7 (0.1-0.6); MONO % 6.3 % (1.0-6.0); RBC 4.43 10^6/uL (3.5-6.1); RED CELL DISTRIBUTION WIDTH 14.5 % (11.5-14.5); WHITE BLOOD COUNT 10.8 10^3/ul (4.5-11.0)
[2018-04-10 17:29] LABS: BLOOD UREA NITROGEN 34 mg/dL (7-21); CALCIUM 9.3 mg/dL (8.4-10.5); GFR AFRICAN-AMERICAN > 60; GFR NON-AFRICAN AMERICAN > 60
[2018-04-10 17:53] VITALS: BP 132/70; PULSE 78
[2018-04-10] MEDS ORDERED: Insulin Detemir 100 units/ml Vial (Levemir) SC SCH (22:00)
[2018-04-11] MEDS ORDERED: Multivitamin Therapeutic Tab PO SCH (10:00)
[2018-04-11] MEDS ORDERED: Digoxin 250 mcg (0.25 mg) Tab PO SCH (10:00)
[2018-04-11] MEDS ORDERED: metOLazone 5 MG TAB PO SCH (10:00)
[2018-04-11] MEDS ORDERED: Pantoprazole 40 mg EC Tab PO SCH (10:00)
[2018-04-11] MEDS ORDERED: Insulin Detemir 100 units/ml Vial (Levemir) SC SCH (10:00)
--- NOTE | 2018-04-11 10:46 | VAS ---
Copied To: Ashley Kenny MD Attending MD: Ashley Kenny MD DATE: 04/10/2018 TYPE OF PROCEDURE: Peripheral angiogram and angioplasty of right SFA after CSI. PROCEDURES PERFORMED: 1. Distal abdominal aortogram. 2. Bilateral lower extremity peripheral angiogram with 3 vessels runoff using digital subtraction angiography. 3. Atherectomy with CSI of right superficial femoral artery/popliteal trunk. 4. Angioplasty with drug-coated balloon of right distal superficial femoral artery/popliteal trunk. 5. Plain angioplasty of peroneal tibial trunk. REFERRING PHYSICIAN: Dr. Kelly. OPERATING DOCTOR: Franko Kenny MD. HAND HEEL SEAT FITTER: Heaven Yoo, orthodontic lab technician. SCHEDULING: Elective. INDICATIONS FOR THE PROCEDURE: Critical limb ischemia, severe claudication, more so on the right than left, patient had JONAS/PVR done dated 03/19/2018 that shows right JONAS of 0.8 and JONAS on the left 1.3; mildly abnormal JONAS on the left with a grossly abnormal on the right SFA with SFA popliteal trunk trifurcation disease. BRIEF CLINICAL HISTORY: This is a 52-year-old male, ex-tobacco abuser, history of extensive coronary artery disease status post non-STEMI, history of cardiogenic shock when the patient presented with a non-STEMI, status post intra-aortic balloon pump, status post PTCA of circumflex was done, and then the patient was put on balloon bump and transferred to [facility], with the patient underwent 5-vessel bypass and mitral valve repair, and the patient remained at the hospital for extended period of time and sternal wound left open, remained in cardiogenic shock, subsequently AICD was done, and tracheostomy and PEG, and was sent home. Later on, after multiple attempts, the patient was successfully decannulated of the tracheostomy and PEG was removed. The patient was complaining of severe leg pain on walking. The patient underwent JONAS dated 03/19/2018 and that revealed grossly abnormal JONAS on right at 0.8 and the left mildly abnormal JONAS at 1.3, with right SFA popliteal trunk trifurcation disease. The patient also had cardiac catheterization on 06/25/2016, when the patient was admitted with acute pulmonary edema and non-STEMI that revealed karuk triple vessel disease, patent SVG to diagonal-1, patent SVG to RCA, occluded SVG to circumflex, occluded SVG to OM-1, occluded MENDOZA to LAD with brief collaterals, decreased LV function, ejection fraction of 25% to 30%, EDP in the range of 18 to 20 at that time. Only plain balloon angioplasty of LAD was done, unable to take the stent, medical treatment recommended. Recently, the patient had as mentioned JONAS/PVR, and patient brought for peripheral angiogram and possible angioplasty. PERIPHERAL ANGIOGRAM AND TECHNIQUE: Relative risk and indications of the procedure were explained to the patient, patient agreed, consent obtained. Patient was put in supine position on the arteriogram table, and right groin was prepped and then the access obtained from the left groin femoral artery with micropuncture technique. Conscious sedation was given continuously, the patient was being continuously monitored, pulse oxymetry and hemodynamics continuously being monitored. Access site was obtained from the left femoral artery with micropuncture technique using Seldinger technique, and then 5-Spanish arterial sheath was placed, and then 5-Spanish Omni Flush catheter was placed in the distal abdominal aortogram, and non-selective distal abdominal aortogram was done just above the renal artery and the pictures of bilateral renal arteries were taken, and then Omni Flush catheter was pulled down to the bifurcation, and bifurcation of the aorta was done, and then using digital subtraction angiography, peripheral runoff, up to 3 vessels' runoff up to the ankle of bilateral lower extremity. ATHERECTOMY: With CSI 1.5 solid nohelia, atherectomy was done on left SFA and popliteal trunk, using CSI 1.5 solid nohelia, doing 60, 80 and 120 revolutions per minute times to each run. After this, drug-coated balloon 5 mm in diameter and 18 mm in length was taken and inflated at the site, where the CSI atherectomy was done in distal SFA popliteal trunk, and then further distal, ACETONE RECOVERY WORKER was done of popliteal peroneal trunk just at the trifurcation with NanoCross balloon Elite 3.5 mm diameter and 14 mm in length, up to 8 atmosphere. Drug-coated balloon made of [employer]tronic Admiral was used, Paclitaxel-coated ACETONE RECOVERY WORKER balloon, 5 mm diameter and 18 mm in length was used, as mentioned above FINDINGS: As follows, diffuse calcification noted in the abdominal aorta with acute (hostile takeoff of the bifurcation of both common iliac noted). Severe calcification and multiple plaque noted in the bifurcation of the aorta. Aorta bifurcates into common iliac, left and right common iliac. Left common iliac, plaque noted, 30% to 40% stenosis noted, which continues as external iliac and internal iliac. External iliac continues as common femoral which then again splits into superficial femoral artery and profunda artery, and then superficial femoral artery continues into the adductor canal into the popliteal trunk, and then trifurcates into anterior tibial, peroneal tibial trunk, and which divides into posterior tibial and peroneal arteries. Left SFA shows 60% to 70% stenosis noted in distal SFA above the trifurcation in the abductor canal, and after the trifurcation, 3 vessels runoff noted but peroneal and posterior tibial is diffusely diseased, but goes up to the ankle. Right common iliac shows luminal irregularities and plaque noted, but no flow obstructive stenosis noted, that bifurcates into external iliac and internal iliac. External iliac continues as common femoral artery, which again bifurcates into profunda femoral artery on the right side and superficial femoral artery on the right side. The right superficial femoral artery runs into the adductor canal and continues as popliteal artery, and then it trifurcates into anterior tibial, posterior tibial and peroneal. Right SFA distal has high-grade stenosis, 80% to 90% multiple stenosis noted in distal SFA. Then further down in the trifurcation, just at the trifurcation, popliteal artery has 80% stenosis noted, and then the anterior tibial artery runs up to the ankle, whereas peroneal tibial trunk bifurcates into posterior tibial and peroneal. Posterior tibial has multiple high-grade stenosis and this appear in the middle of the leg and reconstitute. So, distally only two vessels runoff on the right side, with anterior tibial and peroneal artery noted. Posterior tibial is not present up to the ankle. Successful atherectomy with CSI using 1.5 nohelia of the distal SFA and popliteal trunk was done, followed by drug-coated balloon from the [employer] Admiral 5 mm diameter and 18 mm length was used for 3 minutes, drug-coated in the area of CSI atherectomy was done. With another balloon, NanoCross Elite, 3.5 mm diameter and 14 mm length, was taken and angioplasty was done of distal popliteal peroneal trunk. At the end of the procedure, dorsalis pedis was palpable, which was only Doppler prior to procedure and CATRACHO 3 brisk flow was noted post procedure which was only CATRACHO I flow prior to procedure. IMPRESSION: Successful atherectomy with CSI of right superficial femoral artery and popliteal trunk was done; following this, the drug-coated balloon, [employer] Paclitaxel-coated ACETONE RECOVERY WORKER was done in distal superficial femoral artery where CSI atherectomy was done. Also distal popliteal and peroneal trunk ACETONE RECOVERY WORKER was done using NanoCross 3.5 balloon. At the end of the procedure, puncture site was closed on the left side with Mynx and dorsalis pedis pulse was palpable. PLAN: Hydrate for 6 hours, and then the patient will be discharged. Followup in 1 to 2 weeks. Periodic JONAS and PVR was done in 3 months and 6 month and an year. Should the patient become symptomatic on the left side, consider CSI atherectomy of distal left SFA. Thank you for Dr. Kelly for providing us the opportunity in taking care of the patient, Steve Dcelen Ashley Kenny MD NIKITA
== END 2018-04-10 18:00 | disposition home or self-care (01) ==
LOC: SDSVAS 06:04
PROVIDERS: ATTEND Internal Medicine Cardiovascular Disease
DX: E11.51 Type 2 diabetes mellitus with diabetic peripheral angiopathy without gangrene (principal); I25.810 Atherosclerosis of coronary artery bypass graft(s) without angina pectoris; I13.0 Hypertensive heart and chronic kidney disease with heart failure and stage 1 through stage 4 chronic kidney disease, or unspecified chronic kidney disease; I50.9 Heart failure, unspecified; N18.9 Chronic kidney disease, unspecified; E11.22 Type 2 diabetes mellitus with diabetic chronic kidney disease; Z95.810 Presence of automatic (implantable) cardiac defibrillator; I08.1 Rheumatic disorders of both mitral and tricuspid valves; I25.5 Ischemic cardiomyopathy; D64.9 Anemia, unspecified; I25.2 Old myocardial infarction; E78.5 Hyperlipidemia, unspecified; Z87.891 Personal history of nicotine dependence; Z86.74 Personal history of sudden cardiac arrest; Z95.5 Presence of coronary angioplasty implant and graft; Z79.4 Long term (current) use of insulin; Z79.82 Long term (current) use of aspirin; Z93.1 Gastrostomy status; Z93.0 Tracheostomy status
CPT/HCPCS: 36415; 37225; 37228; 75716; 80048; 80061; 82948; 85025; 85610; 85730; 86850; 86900; 93005; 99152; 99153; C1713; C1725 ×3; C1760 ×2; C1769 ×4; C1776; C1887 ×2; C1894; J1644 ×2; J1940; J2250; J3010; J7030; Q9966; Q9967

== ENCOUNTER 2018-06-20 05:30 | Observation (INO) | payer OTHER, MEDICARE ==
[2018-06-20] MEDS ORDERED: Albuterol-Ipratrop 3 mg / 0.5 (3 ml) UD IH STA (05:37)
--- NOTE | 2018-06-20 06:08 | ED PDOC ---
Arrival/HPI - General Chief Complaint: Shortness Of Breath Time Seen by Provider: 06/20/18 05:34 Historian: Patient - History of Present Illness Narrative History of Present Illness (Text): 06/20/18 06:05 53 year old male, whose past medical history includes hypertension, IDDM, cardiomyopathy, CAD status post CABG, CHF, and pacemaker placement, presents to the emergency department with shortness of breath and nonproductive cough over the past couple of days. Patient states his symptoms have progressed over the past couple of days. Patient denies any chest pain or leg pain. Time/Duration: < week Past Medical History - Provider Review Nursing Documentation Reviewed: Yes - Past History Past History: No Previous - Infectious Disease Hx of Infectious Diseases: None - Reproductive Currently Lactating: No - Cardiac Hx Pacemaker: Yes - Pulmonary Hx Chronic Obstructive Pulmonary Disease (COPD): Yes - Neurological Hx Paralysis: No - HEENT Hx HEENT Disorder: No - Renal Hx Renal Disorder: No - Endocrine/Metabolic Hx Diabetes Mellitus Type 2: Yes - Hematological/Oncological Hx Blood Transfusions: No - Integumentary Hx Dermatological Disorder: No - Musculoskeletal/Rheumatological Hx Musculoskeletal Disorders: No - Gastrointestinal Hx Gastrointestinal Disorders: No - Genitourinary/Gynecological Hx Genitourinary Disorders: No - Psychiatric Hx Emotional Abuse: No Hx Physical Abuse: No Hx Substance Use: No - Past Surgical History Past Surgical History: No Previous - Surgical History Hx Open Heart Surgery: Yes Other/Comment: stents - Anesthesia Hx Anesthesia Reactions: No Hx Malignant Hyperthermia: No - Suicidal Assessment Feels Threatened In Home Enviroment: No Family/Social History - Physician Review Nursing Documentation Reviewed: Yes Family/Social History: No Known Family HX Smoking Status: Former Smoker Hx Alcohol Use: No Hx Substance Use: No Hx Substance Use Treatment: No Allergies/Home Meds Allergies/Adverse Reactions: Allergies No Known Allergies Allergy (Verified 11/19/17 18:04) Home Medications: Home Meds Medication Instructions Recorded Confirmed Insulin Lispro [Humalog] 30 units SC TID 11/18/15 04/10/18 Enalapril Maleate [Vasotec] 5 mg PO BID 11/19/17 04/10/18 Insulin Glargine, Recombina 40 unit SC HS 11/19/17 04/10/18 [Lantus] Digoxin [Lanoxin] 0.25 mg PO DAILY 03/19/18 04/10/18 Metolazone 10 mg PO DAILY 03/19/18 04/10/18 Rosuvastatin Calcium [Crestor] 10 mg PO DAILY 03/19/18 04/10/18 Albuterol 0.042% [Albuterol 0.042% 3 ml IH PRN PRN 03/28/18 04/10/18 Inhal Karina (1.25mg/3ml) UD] Multivitamin [Daily Marissa] 1 tab PO DAILY 03/28/18 04/10/18 Review of Systems - Physician Review All systems were reviewed & negative as marked: Yes - Review of Systems Respiratory: SOB, Cough Cardiovascular: absent: Chest Pain, Calf Pain Physical Exam Vital Signs Reviewed: Yes Vital Signs Temp Pulse Resp BP Pulse Ox 06/20/18 05:36 98.5 F 91 H 19 146/85 93 L Temperature: Afebrile Blood Pressure: Normal Pulse: Regular Respiratory Rate: Normal Appearance: Positive for: Well-Appearing, Non-Toxic, Comfortable Pain Distress: None Mental Status: Positive for: Alert and Oriented X 3 - Systems Exam Head: Present: Atraumatic, Normocephalic Pupils: Present: PERRL Extroacular Muscles: Present: EOMI Conjunctiva: Present: Normal Mouth: Present: Moist Mucous Membranes Neck: Present: Normal Range of Motion Respiratory/Chest: Present: Rales (Bibasilar rales) Cardiovascular: Present: Regular Rate and Rhythm, Normal S1, S2. No: Murmurs Abdomen: No: Tenderness, Distention, Peritoneal Signs Back: Present: Normal Inspection Upper Extremity: Present: Normal Inspection. No: Cyanosis, Edema Lower Extremity: Present: Normal Inspection. No: Edema Neurological: Present: Speech Normal Skin: Present: Warm, Dry, Normal Color. No: Rashes Psychiatric: Present: Alert, Oriented x 3, Normal Insight, Normal Concentration Medical Decision Making ED Course and Treatment: 06/20/18 06:10 Impression: 53 year old male presents with shortness of breath and nonproductive cough. Plan: -- EKG -- Labs -- Chest X-ray -- Duoneb -- Reassess and disposition Prior Visits: Notes and results from previous visits were reviewed. Progress Notes: 06/20/18 07:15: Case discussed in detail with hospitalist, Dr. Lundberg, who accepts patient to is service. - RAD Interpretation Narrative RAD Interpretations (Text): 06/20/18 06:34 CXR-consistent with CHF Radiology Orders: 06/20/18 05:37 CHEST PORTABLE [RAD] Stat Front Office Associate: ED Physician - EKG Interpretation EKG Interpretation (Text): 06/20/18 06:10 EKG-NSR@ 88 Left posterior hemiblock,NSSTT changes Interpreted by ED Physician: Yes Type: 12 lead EKG - Medication Orders Current Medication Orders: Discontinued Medications Albuterol/Ipratropium (Duoneb 3 Mg/0.5 Mg (3 Ml) Ud) 3 ml IH ONCE STA Stop: 06/20/18 05:38 - Scribe Statement The provider has reviewed the documentation as recorded by the Jingibe Jose Alfredo Hendrix Provider Scribe Attestation: All medical record entries made by the Scribe were at my direction and personally dictated by me. I have reviewed the chart and agree that the record accurately reflects my personal performance of the history, physical exam, medical decision making, and the department course for this patient. I have also personally directed, reviewed, and agree with the discharge instructions and disposition. Disposition/Present on Arrival - Present on Arrival Any Indicators Present on Arrival: No History of DVT/PE: No History of Uncontrolled Diabetes: Yes Urinary Catheter: No History of Decub. Ulcer: No History Surgical Site Infection Following: None - Disposition Have Diagnosis and Disposition been Completed?: Yes Diagnosis: Acute CHF (congestive heart failure) Disposition: HOSPITALIZED Disposition Time: 07:04 Patient Plan: Admission Patient Problems: Current Active Problems Problem Status Onset Acute CHF (congestive heart failure) Chronic Condition: STABLE Discharge Instructions (ExitCare): Heart Failure (ED) Forms: [employer] (Kazakh)
[2018-06-20 06:27] LABS: HEMOGLOBIN 11.3 g/dL (14.0-18.0); MEAN CORPUSCULAR HEMOGLOBIN 25.7 pg (25.0-35.0); MEAN CORPUSCULAR HGB CONC 31.4 g/dl (31.0-37.0); MEAN PLATELET VOLUME 9.2 fl (7.0-11.0); RBC 4.39 10^6/uL (3.5-6.1); RED CELL DISTRIBUTION WIDTH 14.1 % (11.5-14.5); WHITE BLOOD COUNT 11.5 10^3/uL (4.5-11.0)
[2018-06-20 06:34] LABS: INR 0.94; PROTHROMBIN TIME 10.8 SECONDS (9.4-12.5)
[2018-06-20 06:37] LABS: ALB/GLOB RATIO 1.2 (1.1-1.8); ALBUMIN 4.3 g/dL (3.0-4.8); ALT/SGPT 24 U/L (7-56); AST/SGOT 28 U/L (17-59); BLOOD UREA NITROGEN 37 mg/dL (7-21); CALCIUM 9.4 mg/dL (8.4-10.5); GFR NON-AFRICAN AMERICAN 53
[2018-06-20 06:47] LABS: TROPONIN I 0.07 ng/mL
[2018-06-20 08:15] VITALS: O2SAT 98
[2018-06-20] MEDS ORDERED: Albuterol 0.042% Inhal Sol (1.25 mg/3 mL) UD IH PRN ×2 (08:15→08:23)
[2018-06-20] MEDS ORDERED: Albuterol-Ipratrop 3 mg / 0.5 (3 ml) UD IH PRN (09:03)
--- NOTE | 2018-06-20 09:09 | CP.PCM.HP ---
<Theodore Wallace - Last Filed: 06/21/18 15:03> History of Present Illness - History of Present Illness History of Present Illness: Benito Wallace PGY2 DO - History and Physical for Hospitalist service CC: Shortness of breath HPI: 53 year old male with past medical history of HTN, IDDM, OR, CAD s/p CABG(5 vessel), CHF last known EF of 30%(11/10), mitral valve anulopathy, COPD on home O2 therapy at home sparingly who presents to [facility] ED with complaints of 12 hour history of shortness of breath and productive white cough. He indicates that over the past week he has noticed increase in his weight stating his usual dry weight is 174 lb. Today his weight in the ED is 178 lb. Patient indicates that he is able to walk about 1 block before becoming short of breath and that this has not changed in the past 3 months. Patient indicates compliance with salt restricted diet, medication compliance and follows up with all members of his medical team on regular basis. Denies swelling of his lower extremities, mid s ternal chest pain, wheezing, fever, chills, abdominal pain, sick contacts or recent travel. Patient was previously seen at [facility] 04/10/2018 for peripheral angiogram and atherectomy with CSI of right superficial femoral artery and distal popliteal trunk, percutaneous angioplasty and plain balloon angioplasty. He was diagnosed with severe peripheral arterial disease and discharged home next day. ED Course: 60mg IVP Lasix administered, patient placed on O2 nasal cannula, EKG showing NSR, Left Fasicular PMH: As above PSH: AICD placement, CABG, Mitral valve annuloplasty FMH: Non contributory SOCHX: Tobacco: Former with 20 pack year history, quit 2 years ago, ETOH: Denies , ID: Denies. Lives in [place] ALL: NKDA MEDS: - Metalozone 10 daily - Crestor 40mg daily - Protonix 40mg daily - Lasix 40mg po twice daily - Digoxin 0.25mg daily - Plavix 75 daily - Lantus 30u at night - Humalog 30u TID - Coreg 12.5 twice daily - ASA 81 daily - Spironolactone 25 daily - Vasotec 5mg PO BID - Carvedilol 3.125mg PO Daily PMD: Dr. Hansen Lithographed Plate Inspector: Dr. Efraín Abdul Present on Admission - Present on Admission Any Indicators Present on Admission: No Review of Systems - Review of Systems All systems: reviewed and no additional remarkable complaints except (as mentioned in HPI) Past Patient History - Infectious Disease Hx of Infectious Diseases: None - Past Social History Smoking Status: Former Smoker - CARDIAC Hx Pacemaker: Yes - PULMONARY Hx Chronic Obstructive Pulmonary Disease (COPD): Yes - NEUROLOGICAL Hx Paralysis: No - HEENT Hx HEENT Problems: No - RENAL Hx Chronic Kidney Disease: No - ENDOCRINE/METABOLIC Hx Diabetes Mellitus Type 2: Yes - HEMATOLOGICAL/ONCOLOGICAL Hx Blood Transfusions: No - INTEGUMENTARY Hx Dermatological Problems: No - MUSCULOSKELETAL/RHEUMATOLOGICAL Hx Musculoskeletal Disorders: No - GASTROINTESTINAL Hx Gastrointestinal Disorders: No - GENITOURINARY/GYNECOLOGICAL Hx Genitourinary Disorders: No - PSYCHIATRIC Hx Emotional Abuse: No Hx Physical Abuse: No Hx Substance Use: No - SURGICAL HISTORY Hx Open Heart Surgery: Yes Other/Comment: stents - ANESTHESIA Hx Anesthesia Reactions: No Hx Malignant Hyperthermia: No Meds Home Medications: Home Medication List Medication Instructions Recorded Confirmed Type Albuterol/Ipratropium [Duoneb 3 3 ml IH Q2H PRN neb 06/21/18 Rx mg/0.5 mg (3 ml) UD] Atorvastatin [Lipitor] 40 mg PO DIN #30 tab 06/21/18 Rx Metolazone 5 mg PO MWF #12 tablet 06/21/18 Rx Spironolactone [Aldactone] 25 mg PO BID #60 tab 06/21/18 Rx Allergies/Adverse Reactions: Allergies Allergy/AdvReac Type Severity Reaction Status Date / Time No Known Allergies Allergy Verified 06/20/18 12:15 Physical Exam - Constitutional Appears: Non-toxic, No Acute Distress - Head Exam Head Exam: ATRAUMATIC, NORMOCEPHALIC - Eye Exam Eye Exam: EOMI, PERRL - ENT Exam ENT Exam: Mucous Membranes Moist - Neck Exam Neck exam: Positive for: Full Rom - Respiratory Exam Respiratory Exam: Decreased Breath Sounds, Rales (bilaterally bases ), NORMAL BREATHING PATTERN. absent: Respiratory Distress - Cardiovascular Exam Cardiovascular Exam: REGULAR RHYTHM, +S1, +S2, Systolic Murmur - GI/Abdominal Exam GI & Abdominal Exam: Normal Bowel Sounds, Soft. absent: Tenderness - Extremities Exam Extremities exam: Positive for: pedal edema (trace bilaterally ) - Neurological Exam Neurological exam: Alert, CN II-XII Intact, Normal Gait, Oriented x3, Reflexes Normal - Psychiatric Exam Psychiatric exam: Normal Affect, Normal Mood - Skin Skin Exam: Dry, Warm Results - Vital Signs Recent Vital Signs: Last Vital Signs Temp 98.3 F 06/20/18 08:02 Pulse 89 06/20/18 08:02 Resp 18 06/20/18 08:02 BP 112/56 L 06/20/18 08:02 Pulse Ox 98 06/20/18 08:02 - Labs Result Diagrams: 06/21/18 05:30 06/21/18 05:30 Labs: Laboratory Results - last 24 hr 06/20/18 06/20/18 06/20/18 05:48 05:48 05:48 WBC RBC Hgb Hct MCV MCH MCHC RDW Plt Count MPV PT 10.8 INR 0.94 APTT 30.0 Sodium 139 Potassium 5.2 H Chloride 101 Carbon Dioxide 29 Anion Gap 15 BUN 37 H Creatinine 1.4 Est GFR ( Amer) > 60 Est GFR (Non-Af Amer) 53 Random Glucose 289 H Calcium 9.4 Total Bilirubin 0.3 AST 28 ALT 24 Alkaline Phosphatase 110 Lactate Dehydrogenase 483 Total Creatine Kinase 72 Troponin I 0.07 D NT-Pro-B Natriuret Pep 1050 H Total Protein 7.9 Albumin 4.3 Globulin 3.5 Albumin/Globulin Ratio 1.2 06/20/18 05:48 WBC 11.5 H RBC 4.39 Hgb 11.3 L Hct 36.0 L MCV 82.0 MCH 25.7 MCHC 31.4 RDW 14.1 Plt Count 226 MPV 9.2 PT INR APTT Sodium Potassium Chloride Carbon Dioxide Anion Gap BUN Creatinine Est GFR ( Amer) Est GFR (Non-Af Amer) Random Glucose Calcium Total Bilirubin AST ALT Alkaline Phosphatase Lactate Dehydrogenase Total Creatine Kinase Troponin I NT-Pro-B Natriuret Pep Total Protein Albumin Globulin Albumin/Globulin Ratio Assessment & Plan - Assessment and Plan (Free Text) Assessment: 53 yo male with PMH of HTN, IDDM, CAD s/p 5 vessel bypass, history of cardiogenic shock and tracheostomy and PEG placement in the past, congestive sys tolic heart failure (CHF) with most recent ejection fraction of 25-30% (11/10), mitral valve anulopathy, and AICD, and COPD presents to [facility] Emergency Department on 03/18/2018 complaining of shortness of breath. Plan: CHF Exacerbation-Systolic - Etiology: Non compliance with medication/diet/fluid restriction - Last known Echo 10/2017 shown to be 25-30% - Mild crackles on auscultation of lungs bilaterally - Lasix 60mg IVP given in ED - Lasix 40mg BID starting tomorrow - Continue Metalozone 10mg Daily, Coreg 3.125mg Daily, - Cardiology consulted, Dr. Kenny, recommendations appreciated CAD - History of OR 2016 and subsequent CABG with 5 vessel - EKG showing NSR, no ST Elevations/Depressions - Continue ASA, Plavix - Cardiology consulted IDDM - ACHS - Insulin sliding scale - Hypoglycemia protocol HTN - Normotensive in ED - Continue home BP medications GI/DVT ppx - Protonix - Heparin 5000units SC Q8H Patient case and plan discussed with attending, Dr. Barraza - Date & Time Date: 06/20/18 Time: 09:11 <Emma Barraza - Last Filed: 06/21/18 16:17> Results - Vital Signs Recent Vital Signs: Last Vital Signs Temp 98 F 06/21/18 12:00 Pulse 85 06/21/18 13:05 Resp 20 06/21/18 12:00 BP 143/76 06/21/18 12:00 Pulse Ox 98 06/20/18 09:10 - Labs Result Diagrams: 06/21/18 05:30 06/21/18 05:30 Labs: Laboratory Results - last 24 hr 06/20/18 06/20/18 06/20/18 16:56 18:16 21:38 WBC RBC Hgb Hct MCV MCH MCHC RDW Plt Count MPV Sodium Potassium Chloride Carbon Dioxide Anion Gap BUN Creatinine Est GFR ( Amer) Est GFR (Non-Af Amer) POC Glucose (mg/dL) 308 H 287 H Random Glucose Calcium Total Bilirubin AST ALT Alkaline Phosphatase Troponin I 0.14 H* Total Protein Albumin Globulin Albumin/Globulin Ratio Triglycerides Cholesterol LDL Cholesterol Direct HDL Cholesterol Digoxin 06/21/18 06/21/18 06/21/18 05:30 05:30 05:30 WBC 9.6 RBC 4.24 Hgb 10.7 L Hct 34.0 L MCV 80.2 MCH 25.2 MCHC 31.5 RDW 13.9 Plt Count 222 MPV 9.4 Sodium 136 Potassium 4.3 Chloride 96 L Carbon Dioxide 27 Anion Gap 17 BUN 45 H Creatinine 1.3 Est GFR ( Amer) > 60 Est GFR (Non-Af Amer) 58 POC Glucose (mg/dL) Random Glucose 317 H* Calcium 9.9 Total Bilirubin 0.4 AST 25 ALT 22 Alkaline Phosphatase 112 Troponin I Total Protein 7.4 Albumin 4.1 Globulin 3.4 Albumin/Globulin Ratio 1.2 Triglycerides 757 H Cholesterol 157 LDL Cholesterol Direct 44 HDL Cholesterol 21 L Digoxin 0.7 L Attending/Attestation - Attestation I have personally seen and examined this patient.: Yes I have fully participated in the care of the patient.: Yes I have reviewed all pertinent clinical information: Yes Notes (Text): 06/20/18 53 year old male with past medical history of hypertension, diabetes, CAD s/p bypass, and CHF s/p AICD who presented with complaint of shortness of breath. He was admitted for acute CHF exacerbation and started on iv lasix. Cardiology evaluation is requested who started metolazone. Will continue to monitor. Emma Barraza MD Hospitalist.
[2018-06-20] MEDS ORDERED: metOLazone 5 MG TAB PO STA (10:07)
--- NOTE | 2018-06-20 10:09 | RAD ---
HISTORY: sob COMPARISON: Chest x-ray performed 03/18/18 TECHNIQUE: Chest, one view. FINDINGS: LUNGS: Moderate pulmonary venous congestion. Please note that chest x-ray has limited sensitivity for the detection of pulmonary masses. PLEURA: No significant pleural effusion identified. No definite pneumothorax . CARDIOVASCULAR: Dual lead left-sided AICD with evidence of CABG. Cardiomegaly. Median sternotomy wires. OSSEOUS STRUCTURES: Degenerative changes. VISUALIZED UPPER ABDOMEN: Unremarkable. OTHER FINDINGS: None. IMPRESSION: Moderate pulmonary venous congestion. Dual lead left-sided AICD with evidence of CABG. Cardiomegaly.
[2018-06-20] MEDS: Pantoprazole 40 mg EC Tab PO SCH (10:35)
[2018-06-20] MEDS: Digoxin 250 mcg (0.25 mg) Tab PO SCH (10:35)
[2018-06-20] MEDS: Multivitamin Therapeutic Tab PO SCH (10:35)
--- NOTE | 2018-06-20 11:14 | CARD ---
APPROVED REPORT Date of service: 06/20/2018 EKG Measurement Heart [id number] <Conclusion> Normal sinus rhythm Low voltage limb leads PRWP NSSTW changes Prolonged QTc Small inferior q waves
[2018-06-20] MEDS: Insulin Reg-HIGH-Coverage SC SCH ×3 (14:04→22:02)
[2018-06-20] MEDS ORDERED: Influenza Vaccine 60 mcg/0.5 mL SYR (4YR UP) IM ONE (16:03)
[2018-06-20] MEDS ORDERED: Pneumococcal 23-Valent Vaccine IM ONE (16:03)
[2018-06-20 18:05] VITALS: BMI 22.1
--- NOTE | 2018-06-20 19:47 | CON ---
DATE: 06/20/2018 The patient in room 269, bed 1. REASON FOR CONSULTATION: Shortness of breath, CHF, cardiomyopathy, AICD insertion, peripheral vascular disease, coronary artery disease, and history of stent insertion. HISTORY OF PRESENT ILLNESS: The patient is a 53-year-old male who has a long history of coronary artery disease, history of non-STEMI, cardiogenic shock, intra-aortic balloon pump, PTCA of circumflex and then patient was transferred to [facility] for PTCA. All the patient's 5-vessel bypass and annuloplasty was done. Postop course after bypass was complicated by ventricular fibrillation arrest, status post AICD insertion, congestive heart failure, ischemic cardiomyopathy, prolonged intubations, status post tracheostomy, status post PEG, later on decannulation and PEG was removed. The patient also has history of getting pain in both calf muscles on exertion suggestive of peripheral vascular disease. The patient's JONAS PVR were severely decreased and showed mildly abnormal JONAS of 0.8 in the right suggestive of right SFA popliteal trifurcation disease, where as left JONAS was 1.3 consistent with right SFA and popliteal trifurcation disease. The patient on 04/10/2018 had successful atherectomy with CSI of right superficial femoral artery and popliteal trunk following atherectomy drug-coated balloon, ballooning was done, Genescotronic Paclitaxel-coated [employer] was done in the distal superficial femoral artery where CSI atherectomy was done, also distal popliteal and peroneal trunk [employer] was done using NanoCross 3.5 balloon. The patient today is admitted with the history that he was sleeping and he woke up from sleep with sudden onset of cough and shortness of breath. Denied any chest pain, sitting position he was slightly better, came to emergency room, was found to have congestive heart failure, so the patient was admitted. PAST MEDICAL HISTORY: Significant for coronary artery disease, status post STEMI 08/06/2015, then emergency PTCA of the circumflex was done and intra-aortic balloon pump was placed because of cardiogenic shock and transferred to [facility] where the patient underwent 5-vessel bypass and MVR was also done, prolonged intubation with VFib arrest, prolonged intubation PEG was placed, tracheostomy was done. The patient developed subsequently decannulation. The patient also had AICD inserted at [facility] at that time. As mentioned in the history, the patient had intervention done for peripheral vascular disease on 04/10/2018 as mentioned in detail in the above history part. Most recent cardiac workup, the patient had a MUGA scan done 10/21/2015 which showed ejection fraction of 40%. Last echo 11/12/2017 showed decompensated congestive heart failure, ejection fraction was 25% to 30%. RV function is mildly reduced, [id number] mitral regurgitation. Although the patient had mitral annuloplasty done at [facility] at the time of coronary bypass surgery. Moderate tricuspid regurgitation with RV systolic pressure of 56 consistent with moderate pulmonary hypertension. For peripheral vascular disease intervention on 04/10/2018, I mentioned in the history part. PERSONAL HISTORY: Denies any smoking. Denies history of alcohol abuse. MEDICATIONS AT HOME: The patient was taking spironolactone 25 daily, Crestor 10 mg daily, Protonix 40 mg daily, multivitamin 1 daily, digoxin 0.25 daily, Plavix 75 mg daily, Coreg 3.125 mg b.i.d., aspirin 81 mg daily, metolazone 10 mg daily, but the patient was not taking it now, he says he has stopped because of abnormal kidney function, insulin lispro Humalog 30 units subcutaneous t.i.d., insulin glargine, Lantus 40 units subcutaneous at bedtime, Lasix 40 mg b.i.d. and enalapril 5 mg b.i.d. ALLERGIES: THE PATIENT DENIES ANY ALLERGIES. REVIEW OF SYSTEMS: All the systems reviewed, positives mentioned in the history, others were negative. FAMILY HISTORY: Nonsignificant. PHYSICAL EXAMINATION: VITAL SIGNS: Blood pressure 130/66, respirations 18, pulse 85 and temperature 98.3. HEENT: Head is normocephalic. Eyes: Pupils are normal. Conjunctivae are normal. Nose and throat are normal. NECK: JVP low. Carotids equal. THORAX: AP diameter normal. LUNGS: Bilateral rales lower two-third bilateral lungs. CARDIOVASCULAR: S1 and S2. ABDOMEN: Soft. No organomegaly. Bowel sounds normal. EXTREMITIES: Pulses felt in the both feet. Right dorsalis pedis pulse is slightly more prominent as compared to the left dorsalis pedis. There is no edema, no clubbing, no cyanosis. LABORATORY DATA: WBC 11.5, hemoglobin 11.3, hematocrit 36.0 and platelet 226. Sodium 139, potassium 5.2, BUN 37, creatinine 1.4. AST and ALT are normal. Troponin 0.07, NT-pro-beta natriuretic peptide 1050, total protein and albumin normal. EKG showed regular sinus rhythm. Chest x-ray consistent with moderate pulmonary venous congestion. DIAGNOSES: Congestive heart failure, cardiomyopathy, [id number] left ventricular systolic dysfunction, coronary artery disease, history of angioplasty, history of myocardial infarction status post automatic implantable cardioverter-defibrillator insertion, history of peripheral vascular disease status post atherectomy and balloon for peripheral vascular disease, diabetes mellitus, renal dysfunction, hyperkalemia, anemia, peripheral vascular disease, right superficial femoral artery and popliteal trunk, hypertension, hyperlipidemia, ischemic cardiomyopathy, coronary artery bypass graft surgery status post cardiogenic shock, status post mitral valve repair, status post atherectomy with CSI for right superficial femoral artery and popliteal trunk, followed by drug-coated balloon, Genescotronic Paclitaxel-coated percutaneous transluminal angioplasty was done in distal superficial femoral artery where CSI atherectomy was done, also distal popliteal and peroneal trunk percutaneous transluminal angioplasty was done using NanoCross 3.5 balloon. PLAN: The patient on Aldactone 25 mg daily, we will increase it to 25 mg b.i.d. The patient on Lasix 40 mg IV b.i.d. We will give Zaroxolyn 5 mg p.o. today and 5 mg daily until CHF is cleared. We will check digoxin level, the patient on digoxin 0.25 daily. Insulin as ordered and DuoNeb and nebulizer therapy as ordered. Aspirin 81 mg daily, Coreg 3.125 b.i.d., Plavix 75 mg daily, Protonix 40 mg daily, atorvastatin 40 mg p.o. daily. We will check lipid profile, SMA-7 and digoxin level in the morning. We will also check lipid profile, we will monitor intake and output and we will closely follow with you. Ashley Brown MD
--- NOTE | 2018-06-20 20:25 | PN ---
DATE: 06/20/2018 REASON FOR CONSULTATION: Acute CHF. SUBJECTIVE: The patient was seen earlier, dictated by Dr. Brown. The patient reassessed, feels a lot better. Discussed with the and also the prescription given for metaxalone, advised to take the metaxalone Saturday, Saturday and Saturday. If the leg does not get resolved but is increase to every day, but prescription given for daily, but advised to take only Saturday, Saturday and Saturday in addition to Lasix 40 mg at 8 a.m. and 3 p.m. If the patient remains stable, possible discharge home. Follow up with office in 2 weeks. Ashley Kenny MD
[2018-06-21 07:01] LABS: HEMOGLOBIN 10.7 g/dL (14.0-18.0); MEAN CELL VOLUME 80.2 fl (80.0-105.0); MEAN CORPUSCULAR HEMOGLOBIN 25.2 pg (25.0-35.0); MEAN CORPUSCULAR HGB CONC 31.5 g/dl (31.0-37.0); MEAN PLATELET VOLUME 9.4 fl (7.0-11.0); RBC 4.24 10^6/uL (3.5-6.1); RED CELL DISTRIBUTION WIDTH 13.9 % (11.5-14.5); WHITE BLOOD COUNT 9.6 10^3/uL (4.5-11.0)
[2018-06-21 07:42] LABS: LDL CHOLESTEROL 44 mg/dL (0-129)
[2018-06-21 07:50] LABS: ALB/GLOB RATIO 1.2 (1.1-1.8); ALBUMIN 4.1 g/dL (3.0-4.8); ALT/SGPT 22 U/L (7-56); AST/SGOT 25 U/L (17-59); BLOOD UREA NITROGEN 45 mg/dL (7-21); CALCIUM 9.9 mg/dL (8.4-10.5); GFR NON-AFRICAN AMERICAN 58; HDL CHOLESTEROL 21 mg/dL (29-60)
[2018-06-21] MEDS: Insulin Reg-HIGH-Coverage SC SCH ×2 (08:49→12:19)
[2018-06-21] MEDS: Digoxin 250 mcg (0.25 mg) Tab PO SCH (09:35)
[2018-06-21] MEDS: Pantoprazole 40 mg EC Tab PO SCH (09:35)
[2018-06-21] MEDS: Multivitamin Therapeutic Tab PO SCH (09:36)
[2018-06-21 09:45] VITALS: PULSE 93
[2018-06-21] MEDS ORDERED: metOLazone 5 MG TAB PO SCH (10:00)
--- NOTE | 2018-06-21 10:58 | CARD ---
APPROVED REPORT Date of service: 06/21/2018 EKG Measurement Heart [id number] <Conclusion> Normal sinus rhythm Low voltage limb leads PRWP NSSTW changes No change
[2018-06-21 12:24] VITALS: BP 143/76; RESP 20; TEMP 98
[2018-06-21 13:05] VITALS: PULSE 85
--- NOTE | 2018-06-21 13:23 | CP.PCM.DIS ---
<Dylon Ramírez - Last Filed: 06/21/18 13:21> Provider - Provider Date of Admission: 06/20/18 07:06 Attending physician: Emma Barraza MD Primary care physician: Desi Hansen MD Time Spent in preparation of Discharge (in minutes): 45 Diagnosis - Discharge Diagnosis (1) Acute decompensated heart failure Status: Acute Priority: High (2) Acute respiratory distress Status: Acute Priority: High (3) Chest pain Status: Acute Priority: High Hospital Course - Lab Results Lab Results: Most Recent Lab Values WBC 9.6 10^3/uL (4.5-11.0) 06/21/18 05:30 RBC 4.24 10^6/uL (3.5-6.1) 06/21/18 05:30 Hgb 10.7 g/dL (14.0-18.0) L 06/21/18 05:30 Hct 34.0 % (42.0-52.0) L 06/21/18 05:30 MCV 80.2 fl (80.0-105.0) 06/21/18 05:30 MCH 25.2 pg (25.0-35.0) 06/21/18 05:30 MCHC 31.5 g/dl (31.0-37.0) 06/21/18 05:30 RDW 13.9 % (11.5-14.5) 06/21/18 05:30 Plt Count 222 10^3/uL (120.0-450.0) 06/21/18 05:30 MPV 9.4 fl (7.0-11.0) 06/21/18 05:30 PT 10.8 SECONDS (9.4-12.5) 06/20/18 05:48 INR 0.94 06/20/18 05:48 APTT 30.0 Seconds (25.1-36.5) 06/20/18 05:48 Sodium 136 mmol/L (132-148) 06/21/18 05:30 Potassium 4.3 mmol/L (3.6-5.0) 06/21/18 05:30 Chloride 96 mmol/L (98-107) L 06/21/18 05:30 Carbon Dioxide 27 mmol/L (21-33) 06/21/18 05:30 Anion Gap 17 (10-20) 06/21/18 05:30 BUN 45 mg/dL (7-21) H 06/21/18 05:30 Creatinine 1.3 mg/dl (0.8-1.5) 06/21/18 05:30 Est GFR ( Amer) > 60 06/21/18 05:30 Est GFR (Non-Af Amer) 58 06/21/18 05:30 POC Glucose (mg/dL) 287 mg/dL (65-110) H 06/20/18 21:38 Random Glucose 317 mg/dL (70-110) H* 06/21/18 05:30 Calcium 9.9 mg/dL (8.4-10.5) 06/21/18 05:30 Phosphorus 3.5 mg/dL (2.5-4.5) 06/20/18 08:28 Magnesium 1.8 mg/dL (1.7-2.2) 06/20/18 08:28 Total Bilirubin 0.4 mg/dL (0.2-1.3) 06/21/18 05:30 AST 25 U/L (17-59) 06/21/18 05:30 ALT 22 U/L (7-56) 06/21/18 05:30 Alkaline Phosphatase 112 U/L (38-126) 06/21/18 05:30 Lactate Dehydrogenase 483 U/L (333-699) 06/20/18 05:48 Total Creatine Kinase 72 U/L (35-230) 06/20/18 05:48 Troponin I 0.14 ng/mL H* 06/20/18 18:16 NT-Pro-B Natriuret Pep 1050 pg/mL (0-450) H 06/20/18 05:48 Total Protein 7.4 g/dL (5.8-8.3) 06/21/18 05:30 Albumin 4.1 g/dL (3.0-4.8) 06/21/18 05:30 Globulin 3.4 gm/dL 06/21/18 05:30 Albumin/Globulin Ratio 1.2 (1.1-1.8) 06/21/18 05:30 Triglycerides 757 mg/dL (35-160) H 06/21/18 05:30 Cholesterol 157 mg/dL (130-200) 10/27/18 05:30 LDL Cholesterol Direct 44 mg/dL (0-129) 06/21/18 05:30 HDL Cholesterol 21 mg/dL (29-60) L 06/21/18 05:30 Digoxin 0.7 ng/mL (0.8-2.0) L 06/21/18 05:30 - Hospital Course Hospital Course: Pt is a 53 year old male with past medical history of HTN, IDDM, AK, CAD s/p CABG(5 vessel), CHF last known EF of 30%(11/10), mitral valve anulopathy, COPD on home O2 therapy at home sparingly who presented to [facility] with complaints of 12 hour history of shortness of breath and productive white cough. Pt noticed that he had an increase in weight from his usual 174 lb. In the ED, weight was 178lb. Pt reported not being able to walk more than 1 block without shortness of breath for the psat 3 months. Pt indicated compliance with salt-restricted diet, medication compliance, and followup with his medical providers. He denied swelling of his lower extremities, mid sternal chest pain, wheezing, fever, chills, abdominal pain, sick contacts or recent travel. Patient was previously seen at [facility] 04/10/2018 for peripheral angiogram and atherectomy with CSI of right superficial femoral artery and distal popliteal trunk, percutaneous angioplasty and plain balloon angioplasty. He was diagnosed with severe peripheral arterial disease and discharged home next day. In the ED BNP was 1050, 60mg IVP Lasix was administered, pt received duonebs and was placed on O2 nasal cannula, EKG showed NSR, Chest Xray showed moderate pulmonary vascular congestion. Pt was admitted for CHF exacerbation. He was continued on duonebs prn, he was started on Lasix 40 mg BID and Aldactone 25mg daily as well as Lipitor 40 mg PO. Cardiology was consulted and his Aldactone as increased to 25mg BID and added Metolazone 5mg PO with instructions to take MWF. Patients diuresed well on diuretics and he reported improvement in his symptoms and his weight went down to 175lb. Pt is stable for discharge per Dr. Barraza and Cardiology. He is being discharged home on Aldactone 25mg BID, Duoneb prn, Lipitor 40mg PO, and Metolazone 5mg PO MWF with instructions to followup with his PMD and with his nursing care attendant in 2 weeks. - Date & Time of H&P Date of H&P: 06/21/18 Time of H&P: 07:00 Discharge Exam - Head Exam Head Exam: ATRAUMATIC, NORMOCEPHALIC - Eye Exam Eye Exam: EOMI Pupil Exam: NORMAL ACCOMODATION - ENT Exam ENT Exam: Mucous Membranes Moist - Respiratory Exam Respiratory Exam: NORMAL BREATHING PATTERN, UNREMARKABLE. absent: Accessory Muscle Use, Wheezes, Respiratory Distress - Cardiovascular Exam Cardiovascular Exam: RRR, +S1, +S2. absent: Diastolic murmur, Systolic Murmur - Extremities Exam Extremities exam: full ROM, pedal pulses present - Neurological Exam Neurological exam: Alert, Oriented x3 - Psychiatric Exam Psychiatric exam: Normal Affect, Normal Mood - Skin Skin Exam: Dry, Normal Color, Warm Discharge Plan - Discharge Medications Prescriptions: Atorvastatin [Lipitor] 40 mg PO DIN #30 tab Metolazone 5 mg PO MWF #12 tablet Spironolactone [Aldactone] 25 mg PO BID #60 tab - Follow Up Plan Condition: STABLE Disposition: HOME/ ROUTINE Instructions: Heart Healthy Diet, Heart Failure, Adult (DC), Heart Failure (DC), Heart Failure (GEN), Chest Pain (DC), Chest Pain (GEN), Pacemaker (DC), Pacemaker (GEN), Pulmonary Edema (DC), Pulmonary Edema (GEN), Ascites (DC), Ascites (GEN), Altered Mental Status (GEN) Additional Instructions: 1. Please follow up with your primary care physician within 1 week of discharge. 2. Please continue to take your medications as directed. 3. If your symptoms return or worsen, please go to the nearest emergency department. Referrals: Desi Hansen MD [Primary Care Provider] - <Emma Barraza - Last Filed: 06/21/18 16:24> Provider - Provider Date of Admission: 06/20/18 07:06 Attending physician: Emma Barraza MD Primary care physician: Desi Hansen MD Hospital Course - Lab Results Lab Results: Most Recent Lab Values WBC 9.6 10^3/uL (4.5-11.0) 06/21/18 05:30 RBC 4.24 10^6/uL (3.5-6.1) 06/21/18 05:30 Hgb 10.7 g/dL (14.0-18.0) L 06/21/18 05:30 Hct 34.0 % (42.0-52.0) L 06/21/18 05:30 MCV 80.2 fl (80.0-105.0) 06/21/18 05:30 MCH 25.2 pg (25.0-35.0) 06/21/18 05:30 MCHC 31.5 g/dl (31.0-37.0) 06/21/18 05:30 RDW 13.9 % (11.5-14.5) 06/21/18 05:30 Plt Count 222 10^3/uL (120.0-450.0) 06/21/18 05:30 MPV 9.4 fl (7.0-11.0) 06/21/18 05:30 PT 10.8 SECONDS (9.4-12.5) 06/20/18 05:48 INR 0.94 06/20/18 05:48 APTT 30.0 Seconds (25.1-36.5) 06/20/18 05:48 Sodium 136 mmol/L (132-148) 06/21/18 05:30 Potassium 4.3 mmol/L (3.6-5.0) 06/21/18 05:30 Chloride 96 mmol/L (98-107) L 06/21/18 05:30 Carbon Dioxide 27 mmol/L (21-33) 06/21/18 05:30 Anion Gap 17 (10-20) 06/21/18 05:30 BUN 45 mg/dL (7-21) H 06/21/18 05:30 Creatinine 1.3 mg/dl (0.8-1.5) 06/21/18 05:30 Est GFR ( Amer) > 60 06/21/18 05:30 Est GFR (Non-Af Amer) 58 06/21/18 05:30 POC Glucose (mg/dL) 287 mg/dL (65-110) H 06/20/18 21:38 Random Glucose 317 mg/dL (70-110) H* 06/21/18 05:30 Calcium 9.9 mg/dL (8.4-10.5) 06/21/18 05:30 Phosphorus 3.5 mg/dL (2.5-4.5) 06/20/18 08:28 Magnesium 1.8 mg/dL (1.7-2.2) 06/20/18 08:28 Total Bilirubin 0.4 mg/dL (0.2-1.3) 06/21/18 05:30 AST 25 U/L (17-59) 06/21/18 05:30 ALT 22 U/L (7-56) 06/21/18 05:30 Alkaline Phosphatase 112 U/L (38-126) 06/21/18 05:30 Lactate Dehydrogenase 483 U/L (333-699) 06/20/18 05:48 Total Creatine Kinase 72 U/L (35-230) 06/20/18 05:48 Troponin I 0.14 ng/mL H* 06/20/18 18:16 NT-Pro-B Natriuret Pep 1050 pg/mL (0-450) H 06/20/18 05:48 Total Protein 7.4 g/dL (5.8-8.3) 06/21/18 05:30 Albumin 4.1 g/dL (3.0-4.8) 06/21/18 05:30 Globulin 3.4 gm/dL 06/21/18 05:30 Albumin/Globulin Ratio 1.2 (1.1-1.8) 06/21/18 05:30 Triglycerides 757 mg/dL (35-160) H 06/21/18 05:30 Cholesterol 157 mg/dL (130-200) 06/21/18 05:30 LDL Cholesterol Direct 44 mg/dL (0-129) 06/21/18 05:30 HDL Cholesterol 21 mg/dL (29-60) L 06/21/18 05:30 Digoxin 0.7 ng/mL (0.8-2.0) L 06/21/18 05:30 Attending/Attestation - Attestation I have personally seen and examined this patient.: Yes I have fully participated in the care of the patient.: Yes I have reviewed all pertinent clinical information, including history, physical exam and plan: Yes Notes (Text): 06/21/18 16:18 53 year old male with past medical history of hypertension, diabetes, CAD s/p bypass, and CHF s/p AICD who presented with complaint of shortness of breath. He was admitted for acute CHF exacerbation and started on iv lasix. He was seen by cardiology and who increased spironalactone and started metolazone. Serial cardiac enyzmes were indeterminate to mildly elevated however patient denied any chest pain and EKG showed no changes. Case was discussed with cardiology who presented patient for discharge with outpatient follow up. Triglycerides are chronically elevated; patient is on statin. He was counselled on diet modifications and repeat lipid panel in 3 months. Patient is discharged home to follow up pmd and cardiology. Emma Barraza MD Hospitalist.
== END 2018-06-21 13:00 | disposition home or self-care (01) ==
LOC: ED 05:30 → INTOOBSV 07:06 → ERH 07:06 → 2RNO 09:19
PROVIDERS: ADMIT Internal Medicine; ATTEND Internal Medicine
DX: I11.0 Hypertensive heart disease with heart failure (principal); I50.23 Acute on chronic systolic (congestive) heart failure; I25.5 Ischemic cardiomyopathy; R06.03 Acute respiratory distress; I25.10 Atherosclerotic heart disease of native coronary artery without angina pectoris; E78.5 Hyperlipidemia, unspecified; E11.51 Type 2 diabetes mellitus with diabetic peripheral angiopathy without gangrene; J44.9 Chronic obstructive pulmonary disease, unspecified; I08.1 Rheumatic disorders of both mitral and tricuspid valves; I27.20 Pulmonary hypertension, unspecified; E87.5 Hyperkalemia; N28.9 Disorder of kidney and ureter, unspecified; I25.2 Old myocardial infarction; Z79.82 Long term (current) use of aspirin; Z79.4 Long term (current) use of insulin; Z79.02 Long term (current) use of antithrombotics/antiplatelets; Z95.1 Presence of aortocoronary bypass graft; Z95.810 Presence of automatic (implantable) cardiac defibrillator; Z86.74 Personal history of sudden cardiac arrest; Z87.891 Personal history of nicotine dependence; Z93.0 Tracheostomy status; Z99.81 Dependence on supplemental oxygen
CPT/HCPCS: 36415; 71045; 80053; 80061; 80162; 82550; 82948; 83615; 83735; 83880; 84100; 84484; 85027; 85610; 85730; 87081; 93005; 94640; 96374; 96376; 99285; G0378; J1940

== ENCOUNTER 2018-08-25 04:22 | Inpatient (IN) | payer OTHER, MEDICARE ==
[2018-08-25] MEDS ORDERED: Albuterol-Ipratrop 3 mg / 0.5 (3 ml) UD ONE (04:28)
--- NOTE | 2018-08-25 04:33 | ED PDOC ---
Arrival/HPI - General Time Seen by Provider: 08/25/18 04:30 Historian: Patient, Family, EMS - History of Present Illness Narrative History of Present Illness (Text): 08/25/18 04:25 53 year old male, with past medical history of hypertension, IDDM, cardiomy opathy, CAD s/p CABG, CHF, and pacemaker placement, presents to the emergency department brought in by EMS for respiratory distress. Patient states he woke up with progressively worsening shortness of breath prior to arrival. Family notified EMS, who subsequently transferred to the Emergency department. Patient denies any chest pain, vomiting, back pain, fever, or any other complaints. PMD: Dr. Hansen Time/Duration: Prior to Arrival Symptom Onset: Gradual Symptom Course: Unchanged Activities at Onset: Light Context: Home Past Medical History - Provider Review Nursing Documentation Reviewed: Yes - Past History Past History: No Previous - Infectious Disease Hx of Infectious Diseases: None - Reproductive Currently Lactating: No - Cardiac Hx Pacemaker: Yes - Pulmonary Hx Chronic Obstructive Pulmonary Disease (COPD): Yes - Neurological Hx Paralysis: No - HEENT Hx HEENT Disorder: No - Renal Hx Renal Disorder: No - Endocrine/Metabolic Hx Diabetes Mellitus Type 2: Yes - Hematological/Oncological Hx Blood Transfusions: No - Integumentary Hx Dermatological Disorder: No - Musculoskeletal/Rheumatological Hx Musculoskeletal Disorders: No - Gastrointestinal Hx Gastrointestinal Disorders: No - Genitourinary/Gynecological Hx Genitourinary Disorders: No - Psychiatric Hx Emotional Abuse: No Hx Physical Abuse: No Hx Substance Use: No - Past Surgical History Past Surgical History: No Previous - Surgical History Hx Open Heart Surgery: Yes Other/Comment: stents - Anesthesia Hx Anesthesia Reactions: No Hx Malignant Hyperthermia: No - Suicidal Assessment Feels Threatened In Home Enviroment: No Family/Social History - Physician Review Nursing Documentation Reviewed: Yes Family/Social History: Unknown Family HX Smoking Status: Former Smoker Hx Alcohol Use: Yes (OCCASIONAL BEER) Hx Substance Use: No Hx Substance Use Treatment: No Allergies/Home Meds Allergies/Adverse Reactions: Allergies No Known Allergies Allergy (Verified 06/20/18 12:15) Home Medications: Home Meds Medication Instructions Recorded Confirmed Insulin Lispro [Humalog] 30 units SC TID 11/18/15 06/20/18 Insulin Glargine, Recombina 40 unit SC HS 11/19/17 06/20/18 [Lantus] Digoxin [Lanoxin] 0.25 mg PO DAILY 03/19/18 06/20/18 Metolazone 10 mg PO DAILY 03/19/18 06/20/18 Albuterol 0.042% [Albuterol 0.042% 3 ml IH PRN PRN 03/28/18 06/20/18 Inhal Karina (1.25mg/3ml) UD] Multivitamin [Daily Marissa] 1 tab PO DAILY 03/28/18 06/20/18 Review of Systems - Physician Review All systems were reviewed & negative as marked: Yes - Review of Systems Constitutional: absent: Fevers Respiratory: SOB. absent: Cough, Wheezing Cardiovascular: absent: Chest Pain Gastrointestinal: absent: Abdominal Pain, Diarrhea, Nausea, Vomiting Genitourinary Male: absent: Frequency, Hematuria, Urinary Output Changes Musculoskeletal: absent: Back Pain, Neck Pain Skin: absent: Rash Neurological: absent: Headache, Dizziness Physical Exam Vital Signs Reviewed: Yes Temperature: Afebrile - Systems Exam Head: Present: Atraumatic, Normocephalic Pupils: Present: PERRL Extroacular Muscles: Present: EOMI Conjunctiva: Present: Normal Mouth: Present: Moist Mucous Membranes Neck: Present: Normal Range of Motion Respiratory/Chest: Present: Rales (Rales bilaterally), Rhonchi (Rhonchi bilaterally). No: Accessory Muscle Use Cardiovascular: Present: Regular Rate and Rhythm, Normal S1, S2. No: Murmurs Abdomen: No: Tenderness, Distention, Peritoneal Signs Upper Extremity: Present: Normal Inspection. No: Cyanosis, Edema Lower Extremity: Present: Normal Inspection. No: Edema Neurological: Present: GCS=15, CN II-XII Intact, Speech Normal Skin: Present: Warm, Dry, Normal Color. No: Rashes Psychiatric: Present: Alert, Oriented x 3, Normal Insight, Normal Concentration Medical Decision Making ED Course and Treatment: 08/25/18 04:37 Impression: 53 year old male presents to emergency department with worsening of shortness of breath prior to arrival. Plan: -- EKG -- Labs -- Chest X-ray -- Lasix -- Duoneb -- BIPAP Procedure Daily -- Reassess and disposition Prior Visits: Notes and results from previous visits were reviewed. Progress Notes: Pt seen on arrival to Emergency department. Pt placed on BiPAP. 08/25/18 04:40 Reviewed EKG, NSR at 98 bpm. Non-specific intraventricular block. 08/25/18 05:00 CXR reviewed, consistent with CHF. 08/25/18 05:38 Case discussed with pediatrician/medical doctor tester electronic scale, who is aware and agrees with plan. 08/25/18 05:[address] Austin Luna, who is aware and agrees with plan. Accepts pt in to her service. Pt will be admitted to Telemetry for CHF, pnuemonia, and COPD - Lab Interpretations I have reviewed the lab results: Yes - RAD Interpretation Welding Manager: ED Physician - EKG Interpretation Interpreted by ED Physician: Yes Type: 12 lead EKG - Scribe Statement The provider has reviewed the documentation as recorded by the Scribe Dotty bass with Maryam All medical record entries made by the Scribe were at my direction and personally dictated by me. I have reviewed the chart and agree that the record accurately reflects my personal performance of the history, physical exam, medical decision making, and the department course for this patient. I have also personally directed, reviewed, and agree with the discharge instructions and disposition. Disposition/Present on Arrival - Present on Arrival Any Indicators Present on Arrival: No History of DVT/PE: No History of Uncontrolled Diabetes: Yes Urinary Catheter: No History of Decub. Ulcer: No History Surgical Site Infection Following: None - Disposition Have Diagnosis and Disposition been Completed?: Yes Diagnosis: CHF (congestive heart failure), COPD (chronic obstructive pulmonary disease) Disposition: HOSPITALIZED Disposition Time: 06:00 Condition: STABLE
[2018-08-25] MEDS ORDERED: Albuterol-Ipratrop 3 mg / 0.5 (3 ml) UD IH STA (04:36)
[2018-08-25 05:30] LABS: HEMOGLOBIN 12.2 g/dL (14.0-18.0); MEAN CORPUSCULAR HEMOGLOBIN 26.1 pg (25.0-35.0); MEAN PLATELET VOLUME 9.8 fl (7.0-11.0); RBC 4.68 10^6/uL (3.5-6.1); RED CELL DISTRIBUTION WIDTH 15.1 % (11.5-14.5); WHITE BLOOD COUNT 17.1 10^3/uL (4.5-11.0)
[2018-08-25] MEDS ORDERED: cefTRIAXone 1 gm 1 GM/100 ML BAG IV STA (05:39)
[2018-08-25] MEDS ORDERED: Azithromycin 500MG/NS 250ml 500 MG/250 ML BAG IV STA (05:39)
[2018-08-25 05:45] LABS: TROPONIN I 0.03 ng/mL
[2018-08-25 05:55] LABS: ALB/GLOB RATIO 1.4 (1.1-1.8); ALBUMIN 4.7 g/dL (3.0-4.8); CALCIUM 9.2 mg/dL (8.4-10.5); INR 0.95; PARTIAL THROMBOPLASTIN TIME 30.1 Seconds (25.1-36.5); PROTHROMBIN TIME 10.9 SECONDS (9.4-12.5)
[2018-08-25 05:58] LABS: ARTERIAL BLOOD GAS HCO3 25.4 mmol/L (21-28); ARTERIAL BLOOD GAS HEMOGLOBIN 10.9 g/dL (11.7-17.4); ARTERIAL BLOOD GAS O2 CAPACITY 16.1 mL/dl (16-24); ARTERIAL BLOOD GAS O2 SAT 99.3 % (95-98); ARTERIAL BLOOD GAS PCO2 44 mm/Hg (35-45); ARTERIAL BLOOD GAS PH 7.37 (7.35-7.45); ARTERIAL BLOOD GAS TCO2 26.8 mmol.L (22-28)
[2018-08-25] MEDS ORDERED: Dextrose 50% SYRINGE Inj (50 ml) IV PRN (07:40)
[2018-08-25] MEDS ORDERED: Albuterol-Ipratrop 3 mg / 0.5 (3 ml) UD IH PRN ×2 (07:44→08:27)
[2018-08-25] MEDS ORDERED: Albuterol-Ipratrop 3 mg / 0.5 (3 ml) UD IH SCH (08:00)
[2018-08-25] MEDS ORDERED: POLYETHYLENE GLYCOL 3350 17 GM/Dose PACKET PO ONE (08:27)
--- NOTE | 2018-08-25 09:15 | RAD ---
Date of service: 08/25/2018 HISTORY: sob COMPARISON: 06/20/2018 FINDINGS: LUNGS: No active pulmonary disease. PLEURA: No significant pleural effusion identified, no pneumothorax apparent. CARDIOVASCULAR: No aortic atherosclerotic calcification present. Moderate cardiomegaly and severe vascular congestion OSSEOUS STRUCTURES: Sternal wires VISUALIZED UPPER ABDOMEN: Normal. OTHER FINDINGS: Dual lead pacemaker IMPRESSION: Moderate cardiomegaly and severe vascular congestion
[2018-08-25] MEDS ORDERED: METOLAZONE 5 MG PO SCH ×2 (10:00)
[2018-08-25] MEDS ORDERED: Digoxin 250 mcg (0.25 mg) Tab PO SCH (10:00)
[2018-08-25] MEDS: SACUBITRIL 24mg/VALSARTAN 26mg tab PO SCH ×2 (10:32→17:47)
[2018-08-25] MEDS: metOLazone 5 MG TAB PO SCH (10:34)
[2018-08-25] MEDS: Insulin Detemir 100 units/ml Vial (Levemir) SC SCH ×2 (11:34→22:30)
--- NOTE | 2018-08-25 12:01 | CP.PCM.HP ---
<Dylon Ramírez - Last Filed: 08/25/18 12:37> History of Present Illness - History of Present Illness History of Present Illness: Dylon Ramírez PGY1, History and Physical for Dr Danielle Lundberg Pt is a 53M with a PMH of CHF, COPD, IDDM, HTN, HLD, CAD, s/p CABG, AICD who presents to the ED complaining of respiratory distress. Pt states he has been experiencing shortness of breath for the past few days. He states this is worse when he lays flat while sleeping at night. Pt reports that his normal exercise tolerance allows him to climb only one flight of stairs without getting winded. Patient states he woke up with progressively worsening shortness of breath prior to arrival. Reports that he has been taking his medications regularly and has not missed any doses. Patient denies any chest pain, nausea/ vomiting, fever/chills, ankle swelling or any other complaints. PMH: CHF, COPD, IDDM, HTN, HLD, CAD, PSH: s/p CABG, AICD, Mitral valve replacement Family History: Mother 75, DM, "heart problems". Father 49 [place] Social History: Tobacco, 20 py, quit 3 years ago, Alcohol denies, Illicit drugs denies, lives in [place] Allergies: Denies Meds: - Metalozone 10 daily - Crestor 40mg daily - Protonix 40mg daily - Lasix 40mg po twice daily - Digoxin 0.25mg daily - Plavix 75 daily - Lantus 40u at night - Humalog 30u TID - Coreg 12.5 + 6.25 twice daily - ASA 81 daily - Spironolactone 25 daily - Vasotec 5mg PO BID Present on Admission - Present on Admission Any Indicators Present on Admission: No Review of Systems - Review of Systems Review of Systems: a 12 point ROS was obtained and added to the HPI where appropriate Past Patient History - Infectious Disease Hx of Infectious Diseases: None - Past Social History Smoking Status: Former Smoker - CARDIAC Hx Pacemaker: Yes - PULMONARY Hx Chronic Obstructive Pulmonary Disease (COPD): Yes - NEUROLOGICAL Hx Paralysis: No - HEENT Hx HEENT Problems: No - RENAL Hx Chronic Kidney Disease: No - ENDOCRINE/METABOLIC Hx Diabetes Mellitus Type 2: Yes - HEMATOLOGICAL/ONCOLOGICAL Hx Blood Transfusions: No - INTEGUMENTARY Hx Dermatological Problems: No - MUSCULOSKELETAL/RHEUMATOLOGICAL Hx Musculoskeletal Disorders: No - GASTROINTESTINAL Hx Gastrointestinal Disorders: No - GENITOURINARY/GYNECOLOGICAL Hx Genitourinary Disorders: No - PSYCHIATRIC Hx Emotional Abuse: No Hx Physical Abuse: No Hx Substance Use: No - SURGICAL HISTORY Hx Open Heart Surgery: Yes Other/Comment: stents - ANESTHESIA Hx Anesthesia Reactions: No Hx Malignant Hyperthermia: No Meds Allergies/Adverse Reactions: Allergies Allergy/AdvReac Type Severity Reaction Status Date / Time No Known Allergies Allergy Verified 06/20/18 12:15 Physical Exam - Head Exam Head Exam: ATRAUMATIC, NORMOCEPHALIC - Eye Exam Eye Exam: EOMI, Normal appearance, PERRL - ENT Exam ENT Exam: Mucous Membranes Moist - Respiratory Exam Respiratory Exam: NORMAL BREATHING PATTERN. absent: Accessory Muscle Use Additional comments: crackles - Cardiovascular Exam Cardiovascular Exam: RRR, +S1, +S2. absent: Diastolic murmur, Systolic Murmur - GI/Abdominal Exam GI & Abdominal Exam: Normal Bowel Sounds, Soft - Extremities Exam Extremities exam: Positive for: full ROM, pedal pulses present. Negative for: calf tenderness, pedal edema - Neurological Exam Neurological exam: Oriented x3 - Psychiatric Exam Psychiatric exam: Normal Affect, Normal Mood - Skin Skin Exam: Dry, Normal Color, Warm Results - Vital Signs Recent Vital Signs: Last Vital Signs Temp 98.4 F 08/25/18 05:39 Pulse 84 08/25/18 10:36 Resp 22 08/25/18 10:36 BP 119/77 08/25/18 10:36 Pulse Ox 100 08/25/18 10:36 - Labs Result Diagrams: 08/25/18 04:40 08/25/18 04:40 Labs: Laboratory Results - last 24 hr 08/25/18 08/25/18 08/25/18 04:40 04:40 04:40 WBC 17.1 H RBC 4.68 Hgb 12.2 L Hct 39.3 L MCV 84.0 D MCH 26.1 MCHC 31.0 RDW 15.1 H Plt Count 374 MPV 9.8 PT 10.9 INR 0.95 APTT 30.1 pCO2 pO2 HCO3 ABG pH ABG Total CO2 ABG O2 Saturation ABG O2 Content ABG Base Excess ABG Hemoglobin ABG Carboxyhemoglobin POC ABG HHb (Measured) ABG Methemoglobin ABG O2 Capacity Hgb O2 Saturation FiO2 Sodium 141 Potassium 5.4 H Chloride 104 Carbon Dioxide 24 Anion Gap 19 BUN 34 H Creatinine 1.7 H Est GFR ( Amer) 51 Est GFR (Non-Af Amer) 43 POC Glucose (mg/dL) Random Glucose 299 H Calcium 9.2 Total Bilirubin 0.4 AST 32 ALT 27 Alkaline Phosphatase 108 Lactate Dehydrogenase 534 Total Creatine Kinase 86 Troponin I 0.03 D NT-Pro-B Natriuret Pep 761 H Total Protein 8.0 Albumin 4.7 Globulin 3.3 Albumin/Globulin Ratio 1.4 Digoxin 08/25/18 08/25/18 08/25/18 04:40 05:45 10:14 WBC RBC Hgb Hct MCV MCH MCHC RDW Plt Count MPV PT INR APTT pCO2 44 pO2 421.0 H HCO3 25.4 ABG pH 7.37 ABG Total CO2 26.8 ABG O2 Saturation 99.3 H ABG O2 Content 16.0 ABG Base Excess -0.1 ABG Hemoglobin 10.9 L ABG Carboxyhemoglobin 1.4 POC ABG HHb (Measured) 0.7 ABG Methemoglobin 0.8 ABG O2 Capacity 16.1 Hgb O2 Saturation 97.1 FiO2 100.0 Sodium Potassium Chloride Carbon Dioxide Anion Gap BUN Creatinine Est GFR ( Amer) Est GFR (Non-Af Amer) POC Glucose (mg/dL) 295 H Random Glucose Calcium Total Bilirubin AST ALT Alkaline Phosphatase Lactate Dehydrogenase Total Creatine Kinase Troponin I NT-Pro-B Natriuret Pep Total Protein Albumin Globulin Albumin/Globulin Ratio Digoxin 0.9 08/25/18 11:44 WBC RBC Hgb Hct MCV MCH MCHC RDW Plt Count MPV PT INR APTT pCO2 pO2 HCO3 ABG pH ABG Total CO2 ABG O2 Saturation ABG O2 Content ABG Base Excess ABG Hemoglobin ABG Carboxyhemoglobin POC ABG HHb (Measured) ABG Methemoglobin ABG O2 Capacity Hgb O2 Saturation FiO2 Sodium Potassium Chloride Carbon Dioxide Anion Gap BUN Creatinine Est GFR ( Amer) Est GFR (Non-Af Amer) POC Glucose (mg/dL) 246 H Random Glucose Calcium Total Bilirubin AST ALT Alkaline Phosphatase Lactate Dehydrogenase Total Creatine Kinase Troponin I NT-Pro-B Natriuret Pep Total Protein Albumin Globulin Albumin/Globulin Ratio Digoxin Assessment & Plan - Assessment and Plan (Free Text) Assessment: Pt is a 53 yo male with a PMH of CHF, COPD, IDDM, HTN, HLD, CAD, s/p CABG, AICD who presents to emergency department with worsening of shortness of breath prior to arrival. Plan: CHF exacerbation - carvedilol 12.5 - metolazone 10 - digoxin 0.25 - digoxin level: 0.9 - lasix 40 IVP BID - spironolactone, held at this time - BNP 761 - entresto BID - Cardio consulted, Efraín COPD - duoneb Q6 PRN MATTHEW - Cr 1.7 - BUN 34 - gentle diuresis - nephrology consulted, Dr Christopher CAD - ASA 81 - plavix 75 IDDM - levemir 20 AMHS - ISS - accucheck ACHS - random glucose 299 HTN - controlled well with current management HLD - lipitor 40 Ppx/ Diet - HHD Pt seen, examined, assessment and plan discussed with Dr Danielle Ramírez PGY1, Internal Medicine Resident <Danielle Lundberg R - Last Filed: 08/25/18 17:09> Results - Vital Signs Recent Vital Signs: Last Vital Signs Temp 98.0 F 08/25/18 13:15 Pulse 82 08/25/18 15:56 Resp 18 08/25/18 13:15 BP 116/65 08/25/18 13:15 Pulse Ox 98 08/25/18 13:15 - Labs Result Diagrams: 08/25/18 04:40 08/25/18 04:40 Labs: Laboratory Results - last 24 hr 08/25/18 08/25/18 08/25/18 04:40 04:40 04:40 WBC 17.1 H RBC 4.68 Hgb 12.2 L Hct 39.3 L MCV 84.0 D MCH 26.1 MCHC 31.0 RDW 15.1 H Plt Count 374 MPV 9.8 PT 10.9 INR 0.95 APTT 30.1 pCO2 pO2 HCO3 ABG pH ABG Total CO2 ABG O2 Saturation ABG O2 Content ABG Base Excess ABG Hemoglobin ABG Carboxyhemoglobin POC ABG HHb (Measured) ABG Methemoglobin ABG O2 Capacity Hgb O2 Saturation FiO2 Sodium 141 Potassium 5.4 H Chloride 104 Carbon Dioxide 24 Anion Gap 19 BUN 34 H Creatinine 1.7 H Est GFR ( Amer) 51 Est GFR (Non-Af Amer) 43 POC Glucose (mg/dL) Random Glucose 299 H Calcium 9.2 Total Bilirubin 0.4 AST 32 ALT 27 Alkaline Phosphatase 108 Lactate Dehydrogenase 534 Total Creatine Kinase 86 Troponin I 0.03 D NT-Pro-B Natriuret Pep 761 H Total Protein 8.0 Albumin 4.7 Globulin 3.3 Albumin/Globulin Ratio 1.4 Digoxin 08/25/18 08/25/18 08/25/18 04:40 05:45 10:14 WBC RBC Hgb Hct MCV MCH MCHC RDW Plt Count MPV PT INR APTT pCO2 44 pO2 421.0 H HCO3 25.4 ABG pH 7.37 ABG Total CO2 26.8 ABG O2 Saturation 99.3 H ABG O2 Content 16.0 ABG Base Excess -0.1 ABG Hemoglobin 10.9 L ABG Carboxyhemoglobin 1.4 POC ABG HHb (Measured) 0.7 ABG Methemoglobin 0.8 ABG O2 Capacity 16.1 Hgb O2 Saturation 97.1 FiO2 100.0 Sodium Potassium Chloride Carbon Dioxide Anion Gap BUN Creatinine Est GFR ( Amer) Est GFR (Non-Af Amer) POC Glucose (mg/dL) 295 H Random Glucose Calcium Total Bilirubin AST ALT Alkaline Phosphatase Lactate Dehydrogenase Total Creatine Kinase Troponin I NT-Pro-B Natriuret Pep Total Protein Albumin Globulin Albumin/Globulin Ratio Digoxin 0.9 08/25/18 11:44 WBC RBC Hgb Hct MCV MCH MCHC RDW Plt Count MPV PT INR APTT pCO2 pO2 HCO3 ABG pH ABG Total CO2 ABG O2 Saturation ABG O2 Content ABG Base Excess ABG Hemoglobin ABG Carboxyhemoglobin POC ABG HHb (Measured) ABG Methemoglobin ABG O2 Capacity Hgb O2 Saturation FiO2 Sodium Potassium Chloride Carbon Dioxide Anion Gap BUN Creatinine Est GFR ( Amer) Est GFR (Non-Af Amer) POC Glucose (mg/dL) 246 H Random Glucose Calcium Total Bilirubin AST ALT Alkaline Phosphatase Lactate Dehydrogenase Total Creatine Kinase Troponin I NT-Pro-B Natriuret Pep Total Protein Albumin Globulin Albumin/Globulin Ratio Digoxin Attending/Attestation - Attestation I have personally seen and examined this patient.: Yes I have fully participated in the care of the patient.: Yes I have reviewed all pertinent clinical information: Yes Notes (Text): Patient seen and examined by me with resident at 7:45AM on 12/31/18.Case including HPI, physical exam, and assessment and plan discussed with resident. Agree with above with following additions/corrections. 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 Patient states that he woke up around 3 AM this morning and went to the bathroom at which time he started to feel short of breat h. He went back to his bedroom and tries his home oxygen at 4 L which helped a little bit. However, the shortness of breath was still there so patient came into the emergency room. Patient states that the shortness of breath is present at rest and with exertion. He states he was coughing a little bit because he felt like "fluid was in my lungs." He states she also felt a little lightheaded while he was short of breath. He states that he did eat some leftover ham that may have been salty. Patient states that this has happened before and he was hospitalized for CHF exacerbation in May 2018. Patient denies any associated chest pain. No nausea, vomiting, or abdominal pain. No fevers or chills. No headaches or dizziness. No change in vision. No dysuria. Patient states that he does have a history of constipation and takes MiraLAX and Ex-Lax at home as needed. He states his last bowel movement was 3-4 days ago. 12 point review of systems reviewed by me. Please see above HPI, all other sys tems negative. Physical exam: General: Awake and alert sitting up in bed in no acute distress HEENT: Normocephalic, atraumatic. Extraocular muscles intact, pupils equal and reactive, no scleral icterus. Oropharynx is pink. Positive dry mucous membranes. No pharyngeal erythema or exudate appreciated. Neck is supple. Hearing grossly intact. Ears and nose externally unremarkable. Cardiovascular: Regular rhythm.Normal S1 and S2. No murmurs, rubs, or gallops appreciated Pulmonary: Normal respiratory effort. Decreased breath sounds. Mild rales at bases (patient s/p Lasix 80mg). No rhonchi or wheezing appreciated. Gastrointestinal: Soft, nondistended. Nontender. Positive bowel sounds all 4 quadrants. No guarding. Musculoskeletal: Moves all extremities. No calf tenderness. No edema appreciated. No CVA tenderness. Central nervous system: AAOx 3, CN 2-12 grossly intact Dermatologic: Skin warm and dry. 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 1. Acute on chronic combined sytolic and diastolic CHF exacerbation. Patient given 80 mg of Lasix in the emergency room and diuresed well. Patient initially required BIPAP, now on nasal cannula. Continue Lasix 40mg IV BID. BNP 761. Cardiology consulted, recommendations appreciated. Continue home Entresto and metalazone. Contiue home Coreg and digoxin. Monitor ins and outs. Monitor daily weights. 2d echo 11/20/17 per numerical tool programmer showed systolic function is moderately to severely impaired with an EF of 25-30%, status post mitral valve repair, moderate pulmonary hypertension, transmitral Doppler flow pattern is a grade 3 reversible restrictive diastolic dysfunction. Monitor telemetry. 2. MATTHEW. Likely secondary to diuresis. ?secondary to Entresto. Nephrology consulted, follow up recommendations. 3. COPD. Not in acute exacerbation. Former smoker. Placed on nebulizer treatments as needed. 4. CAD s/p CABG. Cardiology following, recommendations appreciated. Continue ASA, plavix, lipitor, and Coreg. 5. Insulin dependent type 2 DM. Continue with insulin sliding scale. Patient takes Lantus 40 units at bedtime. Patient placed on Levemir 20units AMPM. Monitor accuchecks. 6. Hypertension. Continue Lasix, Coreg, Metolazone, and Entresto. 7. Hyperlipidemia. Continue Lipitor. 8. DVT prophylaxis. SCDS 9. Patient is a full code Case discussed in detail with patient, patient's , and cardiology Dr. Kenny regarding current diagnosis and treament plan.
[2018-08-25] MEDS ORDERED: Insulin Regular 1 UNITS/0.01 ML ML ONE (12:02)
[2018-08-25] MEDS: Insulin Reg-MEDIUM-Coverage SC SCH ×3 (12:02→22:30)
[2018-08-25] MEDS: Digoxin 250 mcg (0.25 mg) Tab PO SCH (14:01)
--- NOTE | 2018-08-25 14:12 | CARD ---
APPROVED REPORT Date of service: 08/25/2018 EKG Measurement Heart [id number] <Conclusion> Normal sinus rhythm Nonspecific intraventricular block Abnormal ECG
[2018-08-25] MEDS: Milrinone 20mg/100ml D5W 100 ML IV PRN (15:56)
[2018-08-25 18:19] VITALS: BMI 29.0
[2018-08-25] MEDS ORDERED: Pneumococcal 23-Valent Vaccine IM ONE (18:20)
[2018-08-25] MEDS ORDERED: Influenza Vaccine 60 mcg/0.5 mL SYR (4YR UP) IM ONE (18:20)
[2018-08-25] MEDS ORDERED: INSULIN GLARGINE RECOMBINA 40 UNIT SC SCH (22:00)
--- NOTE | 2018-08-26 00:26 | CON ---
DATE: 08/25/2018 REASON FOR CONSULTATION AND FOLLOWUP: Cardiac evaluation, admitted with decompensated congestive heart failure, and acute on chronic secondary to systolic dysfunction. BRIEF CLINICAL HISTORY: This is a 53-year-old male with past medical history significant for coronary artery disease, status post non-ST segment elevation myocardial infarction, status post intraaortic balloon, status post CABG, mitral valve repair, history of ischemic cardiomyopathy with sudden , status post AICD. Initial postop course was very complicated, prolonged intubation, status post tracheostomy, PEG later on was decannulated, who was admitted through the ER because he woke up with shortness of breath, called the ambulance and brought here. Denies any chest pain. Denies any palpitation now. PAST MEDICAL HISTORY: Significant for coronary artery disease, status post STEMI on 08/06/2015, followed by the patient emergency angioplasty at and then the patient had intraaortic balloon pump with cardiogenic shock and transferred to [facility] where the patient had 5-vessels bypass and MVR. Prolonged intubation as mentioned secondary intention of closure of sternotomy wound with scar, history of PEG placement, history of tracheostomy, later on was decannulated. History of AICD because of sudden cardiac and decreased LV function. The most recent cardiac workup as follows: The patient had a MUGA scan done on 09/27/2015 with ejection fraction 40%. Last echo 11/12/2017 when the patient admitted for decompensated congestive heart failure, ejection fraction 25-30%, history of severe peripheral arterial disease, status post peripheral angiogram and CSI atherectomy and right SFA artery was done and the distal popliteal trunk dated 04/10/2018, later on drug-coated balloon used for SFA and popliteal trunk dated 04/10/2018. Last echo 11/20/2017 showed ejection fraction of 25-30%, RV function is mildly reduced, status post MVR, [id number] mitral regurgitation, moderate tricuspid regurgitation, and RV systolic pressure 66. Prior to that the patient also cardiac catheterization done and found to be normal functioning, MENDOZA to LAD and distal LAD diffusely disease and plain balloon angioplasty was done in 2017. SOCIAL HISTORY: Ex-smoker before DC, now quit smoking. Denies any history of alcohol abuse. Denies any history of substance abuse. CURRENT MEDICATIONS: The patient at home was taking spironolactone 25 mg daily, Protonix 40 mg daily, Zaroxolyn 10 mg daily, insulin, Lasix 40 mg twice a day, digoxin, Plavix 75 mg daily, and aspirin 81 mg daily as well as Entresto. ALLERGIES: NO KNOWN DRUG ALLERGY. PHYSICAL EXAMINATION: VITAL SIGNS: As follows; height of the patient is 5 feet 6 inches, weight of the patient 180 pounds, and body mass index 29.1 kg/m2. Rest of the vitals; temperature afebrile, heart rate 80 and blood pressure 118/55. HEENT: PERRLA. Extraocular muscles intact. NECK: Supple. No carotid bruit or thyromegaly. CHEST: Clear to auscultation. Bilateral few basal crackles noted as well as JVD found to be elevated. Pertinent significant finding, JVD elevated and bilateral few crackles. HEART: S1 and S2 regular. ABDOMEN: Soft. EXTREMITIES: Clubbing and cyanosis negative. LABORATORY DATA: Blood workup: WBC 17.1, hemoglobin 12.2, hematocrit 39.2, and platelet count 374. Chemistry shows sodium 141, potassium 5.4, chloride 104, carbon dioxide 24, anion gap of 19, BUN 32, and creatinine 1.7. BNP 761. Chest x-ray looks like mild congestion, cannot rule out right lower lobe infiltrate. IMPRESSION: A 53-year-old male with past medical history significant for ischemic cardiomyopathy, status post ST-elevation myocardial infarction, status post intraaortic balloon pump, status post cardiogenic shock, statu post 5-vessels bypass as well as mitral valve repair, history of automatic implantable cardioverter-defibrillator, history of prolonged intubation, statu post automatic implantable cardioverter-defibrillator with sudden cardiac , status post tracheostomy and percutaneous endoscopic gastrostomy, later it was decannulated, multiple admissions and then for the decompensated congestive heart failure and last catheterization revealed patent graft, but distal left anterior descending diffusely diseased, admitted with acute decompensated congestive heart failure secondary to systolic dysfunction. RECOMMENDATIONS: We will start Lasix, digoxin, diuretics, Entresto, we will put low dose of Primacor and further recommendations depending on the hospital course. We will continue aggressive . We will follow with you. Thank you Dr. Rosas for providing us the opportunity in taking care of the patient, Steve Quigley. Ashley Kenny MD [facility] # [id number]
[2018-08-26] MEDS: Milrinone 20mg/100ml D5W 100 ML IV PRN (07:45)
[2018-08-26 07:46] LABS: BASO # 0.04 K/mm3 (0.0-2.0); BASO % 0.3 % (0.0-3.0); EOS # 0.2 (0.0-0.7); EOS % 1.7 % (1.5-5.0); GRAN # 9.21 (1.4-6.5); HEMOGLOBIN 9.7 g/dL (14.0-18.0); LYMPH # 1.7 (1.2-3.4); MEAN CELL VOLUME 82.1 fl (80.0-105.0); MEAN CORPUSCULAR HEMOGLOBIN 25.5 pg (25.0-35.0); MEAN CORPUSCULAR HGB CONC 31.1 g/dl (31.0-37.0); MEAN PLATELET VOLUME 9.4 fl (7.0-11.0); MONO # 0.7 (0.1-0.6); RBC 3.8 10^6/uL (3.5-6.1); WHITE BLOOD COUNT 11.8 10^3/uL (4.5-11.0)
[2018-08-26 08:20] LABS: ALB/GLOB RATIO 1.4 (1.1-1.8); ALBUMIN 3.9 g/dL (3.0-4.8); CALCIUM 9.2 mg/dL (8.4-10.5)
[2018-08-26] MEDS: metOLazone 5 MG TAB PO SCH (09:08)
[2018-08-26] MEDS: SACUBITRIL 24mg/VALSARTAN 26mg tab PO SCH ×2 (09:08→17:10)
[2018-08-26] MEDS: Insulin Detemir 100 units/ml Vial (Levemir) SC SCH ×2 (09:10→21:39)
[2018-08-26] MEDS: Insulin Reg-MEDIUM-Coverage SC SCH ×4 (09:11→22:12)
--- NOTE | 2018-08-26 09:14 | CP.PCM.PN ---
Subjective - Date & Time of Evaluation Date of Evaluation: 08/26/18 Time of Evaluation: 06:25 - Subjective Subjective: Awake, alert, no distress Reason for consultation and follow up: Cardiac evaluation of shortness of breath. History of congestive heart failure, hypertension,coronary artery disease post CABG and mitral valve replacement, AICD. Seen and examined by me and Dr. Kenny Objective - Vital Signs/Intake and Output Vital Signs (last 24 hours): Temp Pulse Resp BP Pulse Ox 98.7 F 90 20 137/70 93 L 08/26/18 06:00 08/26/18 06:00 08/26/18 06:00 08/26/18 06:00 08/26/18 06:00 Intake and Output: 08/26/18 08/26/18 06:59 18:59 Intake Total 60 100 Output Total 1000 Balance -940 100 - Medications Medications: Current Medications Albuterol/Ipratropium (Duoneb 3 Mg/0.5 Mg (3 Ml) Ud) 3 ml IH [id number] PRN PRN Reason: Shortness of Breath Last Admin: 08/25/18 10:36 Dose: 3 ml Aspirin (Aspirin Chewable) 81 mg PO DAILY [facility] Last Admin: 08/25/18 10:32 Dose: 81 mg Atorvastatin Calcium (Lipitor) 40 mg PO DIN [facility] Last Admin: 08/25/18 17:47 Dose: 40 mg Carvedilol (Coreg) 12.5 mg PO BID [facility] Last Admin: 08/25/18 17:47 Dose: 12.5 mg Clopidogrel Bisulfate (Plavix) 75 mg PO DAILY [facility] Last Admin: 08/25/18 10:34 Dose: 75 mg Dextrose (Dextrose 50% Inj) 0 ml IV STAT PRN; Protocol PRN Reason: Hypoglycemia Protocol Digoxin (Lanoxin) 0.25 mg PO 1400 [facility] Last Admin: 08/25/18 14:01 Dose: 0.25 mg Furosemide (Lasix) 40 mg IVP BID [facility] Last Admin: 08/25/18 17:46 Dose: 40 mg Dextrose (Dextrose 5% In Water 1000 Ml) 1,000 mls @ 0 mls/hr IV .Q0M PRN; Protocol PRN Reason: Hypoglycemia Protocol Milrinone Lactate/Dextrose (Primacor 20mg/100ml D5w) 100 mls @ 4.899 mls/hr IV .[id number] PRN; Protocol PRN Reason: TITRATE PER MD ORDER Last Admin: 08/26/18 07:45 Dose: 0.2 mcg/kg/min, 4.899 mls/hr Insulin Detemir (Levemir) 20 unit SC [facility] Last Admin: 08/25/18 22:30 Dose: 20 units Insulin Human Regular (Humulin R Med) 0 units SC [facility]; Protocol Last Admin: 08/25/18 22:30 Dose: 2 units Metolazone (Zaroxolyn) 10 mg PO DAILY [facility] Last Admin: 08/25/18 10:34 Dose: 10 mg Sacubitril/Valsartan (Entresto 24 Mg-26 Mg Tablet) 1 each PO BID [facility] Last Admin: 08/25/18 17:47 Dose: 1 each Spironolactone (Aldactone) 25 mg PO DAILY [facility] - Labs Labs: 08/26/18 06:45 08/26/18 06:45 PT 10.9 SECONDS (9.4-12.5) 08/25/18 04:40 INR 0.95 08/25/18 04:40 APTT 30.1 Seconds (25.1-36.5) 08/25/18 04:40 - Constitutional Appears: Non-toxic, No Acute Distress - Head Exam Head Exam: NORMAL INSPECTION, NORMOCEPHALIC - Eye Exam Eye Exam: Normal appearance Pupil Exam: NORMAL ACCOMODATION - ENT Exam ENT Exam: Mucous Membranes Dry - Respiratory Exam Respiratory Exam: Decreased Breath Sounds, Rhonchi, NORMAL BREATHING PATTERN - Cardiovascular Exam Cardiovascular Exam: REGULAR RHYTHM, +S1, +S2 Additional comments: Telemetry NSR 70's AICD - GI/Abdominal Exam GI & Abdominal Exam: Soft, Normal Bowel Sounds - Exam Additional comments: vela catheter - Extremities Exam Extremities Exam: Full ROM Additional comments: 2+ edema - Neurological Exam Neurological Exam: Alert, Awake, Oriented x3 - Psychiatric Exam Psychiatric exam: Normal Affect, Normal Mood - Skin Skin Exam: Dry, Normal Color, Warm Assessment and Plan - Assessment and Plan (Free Text) Assessment: A 53 year old male who came in to the ER due to shortness of breath. History of congestive heart failure, hypertension, STEMI on 07/2015, coronary artery disease emergent angioplasty was done with intra-aortic balloon pump inserted with cardiogenic shock and was transferred to [facility]. Coronary artery disease post CABG x 5 and mitral valve replacement was done. Surgery complicated by open chest and prolonged intubation. Tracheostomy and PEG insertion done. Later decannulated and stabilized. AICD for sudden cardiac , COPD, diabetes me llitus insulin dependent,hyperlipidemia, ex-smoker, 20 pack years quit 3 years ago. Recent cardiac cath showed patent grafts but distal LAD diffusely diseased.Peripheral vascular disease post angiogram and atherectomy of right SFA distal popliteal trunk 04/10/18. Last Echo on 11/20/17 showed moderate to severe LV dysfunction LVEF 25-30 %,mild to moderate MR,Status post MV replacement,moderate TR, moderate pulmonary hypertension, RVSP 66 mmHg. Chest X ray showed moderate cardiomegaly and severe vascular congestion. Acute on chronic decompensated systolic dysfunction congestive heart failure.Started on Primacor drip. Lasix to diurese. Plan: No distress, feels okay Heart rate controlled Blood pressure controlled Continue Primacor drip Continue to diurese, so far 2600 negative for the past 24 hours On ASA 81 mg daily,Lipitor 40 mg daily, Coreg 12.5 mg BID, Plavix 75 mg daily,Digoxin 0.25 mg daily, Lasix 40 mg BID, Zaroxylyn 10 mg daily,Aldactone 25 mg daily Digoxin level WNL Strict I&O Daily weights Will repeat Chest X ray in am. Control glucose Will follow up Plan and treatment discussed with Dr. Kenny
--- NOTE | 2018-08-26 10:22 | CP.PCM.CON ---
History of Present Illness - History of Present Illness History of Present Illness: RENAL cc: pat hpi: 53M with a PMH of ckd iii, CHF, COPD, IDDM, HTN, HLD, CAD, s/p CABG, AICD who came to the ER overnight w/ sob. He was having inc work of breath for the last several days worse w/ orthopnea and worse w/ exertion. He denies n/v. He states he has been compliant w/ diuretics. He has a ahx of DM. He is unaware of his ckd b ut looks like cr has been chronically elevated. He was started on diuretics and milrinone. ros: a full detailed ROS is negative except as in my hpi PMH: CKDIII CHF, COPD, IDDM, HTN, HLD, CAD, PSH: s/p CABG, AICD, Mitral valve replacement Family History: Mother 75, DM, "heart problems". Father 49 [place] Social History: Tobacco, 20 py, quit 3 years ago, Alcohol denies, Illicit drugs denies, lives in [place] Allergies: Denies pe: vs as below gen: nad sclera: anicteric op: clear neck: supple no thyromegaly cv: +s1+s2 no rub lungs: reduced at bases abd: soft nt nd no organomegaly ext: trace edema neuro: A+ox3 no asterixis psych: nml affect skin no rash labs and imaging reviewed imp: ARF/ CKD III/ acute on chronic systolic heart failure / hyperkalemia / diabetic kidney disease/ hypertensive kidney disease plan: cr improving today renal function appears to be at baseline likely ckd from htn/dm/chf. Please check ua and urine prot and creatinine k improved today chf per cardiology dm per primary check a1c tolerating bp medications Past Patient History - Infectious Disease Hx of Infectious Diseases: None - Past Social History Smoking Status: Former Smoker - CARDIAC Hx Cardiac Disorders: Yes (cabg 5 vessel/mitral valve repair 2014) Hx Congestive Heart Failure: Yes Hx Hypercholesterolemia: Yes Hx Hypertension: Yes Hx Pacemaker: Yes (12/2015 aicd) Hx Peripheral Edema: Yes (+2 pitting both feet/ankles) Other/Comment: 08/29/2015 5 vessel bypass and mitral valve repair at [facility], 3-4 days after pt went into respiratory failure, had trach put in, then 4 days after that he coded twice, 12/2015 pacemaker inserted, 05/2016 angioplasty due to veins clogging done by dr kendrick, 03/2018 dr kendrick, abd aortagram, b/l peripheral angiogram, r artherectomy, r angioiplasty, [place] [facility] [place], cardiomyopathy - PULMONARY Hx Respiratory Disorders: Yes (resp failure, pulm edema, resp distress) Hx Chronic Obstructive Pulmonary Disease (COPD): Yes Hx Pneumonia: Yes Other/Comment: trach in and out 2017 due to respiratory failure 4-5 days after 5 vessel bypass and mitral valve repair at [facility] 08/2015, pt has home oxygen and neb ulizer machine - NEUROLOGICAL Hx Neurological Disorder: Yes (numbness both feet "sometimes") - HEENT Hx HEENT Problems: Yes (eyeglasses) - RENAL Hx Chronic Kidney Disease: No - ENDOCRINE/METABOLIC Hx Endocrine Disorders: Yes Hx Diabetes Mellitus Type 2: Yes (dx 1999) - HEMATOLOGICAL/ONCOLOGICAL Hx Blood Disorders: No - INTEGUMENTARY Hx Dermatological Problems: Yes Other/Comment: healed scars left upper chest from pacemaker insertion, healed scar from trach insertion to neck, mid chest healed cabg scar and 2 healed scars to right and left of mid chest scar, healed scar from feeding tube which has been removed, r wrist scar from collapsed vein, 3 scars left leg from where veins were taken for cabg sx, multiple small healed scars to abd, dry skin and thick toenails +2 edema both feet - MUSCULOSKELETAL/RHEUMATOLOGICAL Hx Falls: Yes (not recent) - GASTROINTESTINAL Hx Gastrointestinal Disorders: No Other/Comment: pt had feeding tube in and out 2015 - GENITOURINARY/GYNECOLOGICAL Hx Genitourinary Disorders: No - PSYCHIATRIC Hx Substance Use: No - SURGICAL HISTORY Hx Surgeries: Yes Hx Cardiac Catheterization: Yes Hx Coronary Stent: Yes Hx Open Heart Surgery: Yes Other/Comment: see cardiovascular/pulmonary history, multiple procedures - ANESTHESIA Hx Anesthesia Reactions: No Hx Malignant Hyperthermia: No Meds Allergies/Adverse Reactions: Allergies Allergy/AdvReac Type Severity Reaction Status Date / Time No Known Allergies Allergy Verified 06/20/18 12:15 - Medications Medications: Current Medications Albuterol/Ipratropium (Duoneb 3 Mg/0.5 Mg (3 Ml) Ud) 3 ml IH [id number] PRN PRN Reason: Shortness of Breath Last Admin: 08/25/18 10:36 Dose: 3 ml Aspirin (Aspirin Chewable) 81 mg PO DAILY [facility] Last Admin: 08/25/18 10:32 Dose: 81 mg Atorvastatin Calcium (Lipitor) 40 mg PO DIN [facility] Last Admin: 08/25/18 17:47 Dose: 40 mg Carvedilol (Coreg) 12.5 mg PO BID [facility] Last Admin: 08/26/18 09:07 Dose: 12.5 mg Clopidogrel Bisulfate (Plavix) 75 mg PO DAILY [facility] Last Admin: 08/26/18 09:09 Dose: 75 mg Dextrose (Dextrose 50% Inj) 0 ml IV STAT PRN; Protocol PRN Reason: Hypoglycemia Protocol Digoxin (Lanoxin) 0.25 mg PO 1400 [facility] Last Admin: 08/25/18 14:01 Dose: 0.25 mg Furosemide (Lasix) 40 mg IVP BID [facility] Last Admin: 08/26/18 09:09 Dose: 40 mg Dextrose (Dextrose 5% In Water 1000 Ml) 1,000 mls @ 0 mls/hr IV .Q0M PRN; Protocol PRN Reason: Hypoglycemia Protocol Milrinone Lactate/Dextrose (Primacor 20mg/100ml D5w) 100 mls @ 4.899 mls/hr IV .[id number] PRN; Protocol PRN Reason: TITRATE PER MD ORDER Last Admin: 08/26/18 07:45 Dose: 0.2 mcg/kg/min, 4.899 mls/hr Insulin Detemir (Levemir) 20 unit SC [facility] Last Admin: 08/26/18 09:10 Dose: 20 units Insulin Human Regular (Humulin R Med) 0 units SC [facility]; Protocol Last Admin: 08/26/18 09:11 Dose: 3 units Metolazone (Zaroxolyn) 10 mg PO DAILY [facility] Last Admin: 08/26/18 09:08 Dose: 10 mg Sacubitril/Valsartan (Entresto 24 Mg-26 Mg Tablet) 1 each PO BID [facility] Last Admin: 08/26/18 09:08 Dose: 1 each Spironolactone (Aldactone) 25 mg PO DAILY [facility] Last Admin: 08/26/18 09:09 Dose: 25 mg Results - Vital Signs Recent Vital Signs: Last Vital Signs Temp 98.7 F 08/26/18 06:00 Pulse 86 08/26/18 09:07 Resp 20 08/26/18 06:00 BP 145/67 08/26/18 09:09 Pulse Ox 93 L 08/26/18 06:00 - Labs Result Diagrams: 08/26/18 06:45 08/26/18 06:45 Labs: Laboratory Results - last 24 hr 08/25/18 08/25/18 08/25/18 10:14 11:44 16:12 WBC RBC Hgb Hct MCV MCH MCHC RDW Plt Count MPV Gran % Lymph % (Auto) Pershing % (Auto) Eos % (Auto) Baso % (Auto) Gran # Lymph # (Auto) Pershing # (Auto) Eos # (Auto) Baso # (Auto) Sodium Potassium Chloride Carbon Dioxide Anion Gap BUN Creatinine Est GFR ( Amer) Est GFR (Non-Af Amer) POC Glucose (mg/dL) 295 H 246 H 253 H Random Glucose Calcium Phosphorus Magnesium Total Bilirubin AST ALT Alkaline Phosphatase Total Protein Albumin Globulin Albumin/Globulin Ratio Triglycerides Cholesterol LDL Cholesterol Direct HDL Cholesterol TSH 3rd Generation 08/26/18 08/26/18 08/26/18 06:45 06:45 06:45 WBC 11.8 H D RBC 3.80 Hgb 9.7 L D Hct 31.2 L MCV 82.1 MCH 25.5 MCHC 31.1 RDW 15.0 H Plt Count 270 MPV 9.4 Gran % 78.0 H Lymph % (Auto) 14.0 L Pershing % (Auto) 6.0 Eos % (Auto) 1.7 Baso % (Auto) 0.3 Gran # 9.21 H Lymph # (Auto) 1.7 Pershing # (Auto) 0.7 H Eos # (Auto) 0.2 Baso # (Auto) 0.04 Sodium 138 Potassium 4.1 Chloride 102 Carbon Dioxide 28 Anion Gap 13 BUN 49 H Creatinine 1.5 Est GFR ( Amer) 59 Est GFR (Non-Af Amer) 49 POC Glucose (mg/dL) Random Glucose 219 H Calcium 9.2 Phosphorus 3.7 Magnesium 2.0 Total Bilirubin 0.4 AST 21 ALT 26 Alkaline Phosphatase 91 Total Protein 6.9 Albumin 3.9 Globulin 2.9 Albumin/Globulin Ratio 1.4 Triglycerides 248 H Cholesterol 134 LDL Cholesterol Direct 68 HDL Cholesterol 22 L TSH 3rd Generation 0.82 08/26/18 07:20 WBC RBC Hgb Hct MCV MCH MCHC RDW Plt Count MPV Gran % Lymph % (Auto) Pershing % (Auto) Eos % (Auto) Baso % (Auto) Gran # Lymph # (Auto) Pershing # (Auto) Eos # (Auto) Baso # (Auto) Sodium Potassium Chloride Carbon Dioxide Anion Gap BUN Creatinine Est GFR ( Amer) Est GFR (Non-Af Amer) POC Glucose (mg/dL) 216 H Random Glucose Calcium Phosphorus Magnesium Total Bilirubin AST ALT Alkaline Phosphatase Total Protein Albumin Globulin Albumin/Globulin Ratio Triglycerides Cholesterol LDL Cholesterol Direct HDL Cholesterol TSH 3rd Generation
--- NOTE | 2018-08-26 11:02 | CP.PCM.PN ---
<Matt Polanco - Last Filed: 08/26/18 10:58> Subjective - Date & Time of Evaluation Date of Evaluation: 08/26/18 Time of Evaluation: 08:40 - Subjective Subjective: Medicine Progress Note for Hospitalist Service, Dr. Danielle Polanco, DO PGY-1 Pt seen and examined at bedside this am. Denies any acute complaints, resting comfortably at bedside. Admits to urinating very frequently, states shortness of breath is improving today. Denies headache, dizziness, chest pain, n/v/d/c, abd pain, or other symptoms. Objective - Vital Signs/Intake and Output Vital Signs (last 24 hours): Temp Pulse Resp BP Pulse Ox 98.7 F 88 20 145/67 93 L 08/26/18 06:00 08/26/18 10:00 08/26/18 10:00 08/26/18 09:09 08/26/18 06:00 Intake and Output: 08/26/18 08/26/18 06:59 18:59 Intake Total 60 100 Output Total 1000 Balance -940 100 - Medications Medications: Current Medications Albuterol/Ipratropium (Duoneb 3 Mg/0.5 Mg (3 Ml) Ud) 3 ml IH [id number] PRN PRN Reason: Shortness of Breath Last Admin: 08/25/18 10:36 Dose: 3 ml Aspirin (Aspirin Chewable) 81 mg PO DAILY [facility] Last Admin: 08/25/18 10:32 Dose: 81 mg Atorvastatin Calcium (Lipitor) 40 mg PO DIN [facility] Last Admin: 08/25/18 17:47 Dose: 40 mg Carvedilol (Coreg) 12.5 mg PO BID [facility] Last Admin: 08/26/18 09:07 Dose: 12.5 mg Clopidogrel Bisulfate (Plavix) 75 mg PO DAILY [facility] Last Admin: 08/26/18 09:09 Dose: 75 mg Dextrose (Dextrose 50% Inj) 0 ml IV STAT PRN; Protocol PRN Reason: Hypoglycemia Protocol Digoxin (Lanoxin) 0.25 mg PO 1400 [facility] Last Admin: 08/25/18 14:01 Dose: 0.25 mg Furosemide (Lasix) 40 mg IVP BID [facility] Last Admin: 08/26/18 09:09 Dose: 40 mg Dextrose (Dextrose 5% In Water 1000 Ml) 1,000 mls @ 0 mls/hr IV .Q0M PRN; Protocol PRN Reason: Hypoglycemia Protocol Milrinone Lactate/Dextrose (Primacor 20mg/100ml D5w) 100 mls @ 4.899 mls/hr IV .[id number] PRN; Protocol PRN Reason: TITRATE PER MD ORDER Last Admin: 08/26/18 07:45 Dose: 0.2 mcg/kg/min, 4.899 mls/hr Insulin Detemir (Levemir) 20 unit SC [facility] Last Admin: 08/26/18 09:10 Dose: 20 units Insulin Human Regular (Humulin R Med) 0 units SC [facility]; Protocol Last Admin: 08/26/18 09:11 Dose: 3 units Metolazone (Zaroxolyn) 10 mg PO DAILY [facility] Last Admin: 08/26/18 09:08 Dose: 10 mg Sacubitril/Valsartan (Entresto 24 Mg-26 Mg Tablet) 1 each PO BID [facility] Last Admin: 08/26/18 09:08 Dose: 1 each Spironolactone (Aldactone) 25 mg PO DAILY [facility] Last Admin: 08/26/18 09:09 Dose: 25 mg - Labs Labs: 08/26/18 06:45 08/26/18 06:45 PT 10.9 SECONDS (9.4-12.5) 08/25/18 04:40 INR 0.95 08/25/18 04:40 APTT 30.1 Seconds (25.1-36.5) 08/25/18 04:40 - Constitutional Appears: Non-toxic, No Acute Distress - Head Exam Head Exam: ATRAUMATIC, NORMOCEPHALIC - Eye Exam Eye Exam: EOMI, Normal appearance, PERRL - ENT Exam ENT Exam: Mucous Membranes Moist - Respiratory Exam Respiratory Exam: Rales (Trace amount heard in lower lung cornelius b/l), NORMAL BREATHING PATTERN. absent: Respiratory Distress - Cardiovascular Exam Cardiovascular Exam: REGULAR RHYTHM, +S1, +S2. absent: Gallop, Rubs, Murmur - GI/Abdominal Exam GI & Abdominal Exam: Soft, Normal Bowel Sounds. absent: Distended, Guarding, Tenderness, Organomegaly, Rebound - Extremities Exam Extremities Exam: Full ROM, Normal Capillary Refill, Normal Inspection - Neurological Exam Neurological Exam: Alert, Awake, CN II-XII Intact, Oriented x3 - Skin Skin Exam: Dry, Intact, Normal Color, Warm Assessment and Plan - Assessment and Plan (Free Text) Assessment: 53 y o male with a PMH of CHF, COPD, IDDM, HTN, HLD, CAD, s/p CABG, AICD who presents to emergency department with worsening of shortness of breath prior to arrival. Admitted for CHF exacerbation. Plan: CHF exacerbation - carvedilol 12.5 - metolazone 10 - digoxin 0.25 - digoxin level: 0.9 on admission - lasix 40 IVP BID - Spironolactone 25 daily - BNP 761 - Entresto BID - Cardio consulted, Dr. Kenny, recs appreciated - Cont to trend I's/O's, monitor diuresis COPD - Duonebs Q6 PRN MATTHEW - Cr 1.7 on admission, trending down to 1.5 today - BUN 34 - Gentle diuresis - Nephrology consulted, Dr Christopher, recs appreciated CAD - ASA 81 mg daily - Plavix 75 mg daily IDDM - Levemir 20 AMHS - ISS - accucheck ACHS - Cont to trend fingersticks HTN - Milrinone drip - Entresto, lasix, spironolactone, carvedilol HLD - Lipitor 40 Ppx/ Diet - GI ppx: none - DVT ppx: SCDs - HHD Pt seen, examined with, and plan discussed with Dr. Lundberg, attending physician. Matt Polanco DO PGY-1, [employer] Pager #[phone] <Danielle Lundberg R - Last Filed: 08/28/18 19:30> Objective - Vital Signs/Intake and Output Vital Signs (last 24 hours): Temp Pulse Resp BP Pulse Ox 98.2 F 82 20 117/72 99 08/27/18 12:00 08/27/18 10:00 08/27/18 06:00 08/27/18 13:52 08/27/18 06:00 - Labs Labs: 08/27/18 06:15 08/27/18 06:15 PT 10.9 SECONDS (9.4-12.5) 08/25/18 04:40 INR 0.95 08/25/18 04:40 APTT 30.1 Seconds (25.1-36.5) 08/25/18 04:40 Attending/Attestation - Attestation I have personally seen and examined this patient.: Yes I have fully participated in the care of the patient.: Yes I have reviewed all pertinent clinical information, including history, physical exam and plan: Yes Notes (Text): Patient seen and examined by me with resident at 8:50PM on 08/26/17. Case including HPI, physical exam, and assessment and plan discussed with resident. Agree with above with following additions/corrections. Patient is a 53-year-old male with past medical history significant for combined systolic and diastolic CHF status post AICD, s/p mitral valve repair, COPD on home O2 as needed, insulin-dependent type 2 diabetes, coronary artery disease status post CABG, hypertension, and hyperlipidemia presented to the emergency room with shortness of breath. Patient states he is feeling a little better today. States he is still having some shortness of breath with movement and walking. He is tolerating nasal cannula. He denies chest pain. No nausea, vomiting, or abdominal pain. No fevers or chills. No headaches or dizziness. No change in vision. No dysuria. Physical exam: General: Awake and alert sitting up in bed in no acute distress HEENT: Normocephalic, atraumatic. Extraocular muscles intact, pupils equal and reactive, no scleral icterus. Oropharynx is pink and moist. No pharyngeal priscilla thema or exudate appreciated. Neck is supple. Cardiovascular: Regular rhythm. Normal S1 and S2. No murmurs, rubs, or gallops appreciated Pulmonary: Normal respiratory effort. Decreased breath sounds. Crackles at bases. No rhonchi or wheezing appreciated. Gastrointestinal: Soft, nondistended. Nontender. Positive bowel sounds all 4 quadrants. No guarding. Musculoskeletal: Moves all extremities. No calf tenderness. No edema appreciated. No CVA tenderness. Central nervous system: AAOx 3, CN 2-12 grossly intact Dermatologic: Skin warm and dry. Assessment and plan: Patient is a 53-year-old male with past medical history significant for combined systolic and diastolic CHF status post AICD, s/p mitral valve repair, COPD on home O2 as needed, insulin-dependent type 2 diabetes, coronary artery disease status post CABG, hypertension, and hyperlipidemia presented to the emergency room with shortness of breath. 1. Acute on chronic combined sytolic and diastolic CHF exacerbation. Patient given 80 mg of Lasix in the emergency room and diuresed well. Improving. On milrinone drip.Continue Lasix 40mg IV BID. BNP 761. Cardiology following, recommendations appreciated. Continue Entresto and metalazone. Contiue Coreg and digoxin. Continue to monitor ins and outs. Continue to monitor daily weig hts. 2d echo 11/20/17 per ecclesiastical worker showed systolic function is moderately to severely impaired with an EF of 25-30%, status post mitral valve repair, moderate pulmonary hypertension, transmitral Doppler flow pattern is a grade 3 reversible restrictive diastolic dysfunction. 2. MATTHEW. Creatinine improved. Nephrology following, recommendations appreciated. 3. COPD. Not in acute exacerbation. Former smoker. Continue nebulizer treatments as needed. 4. CAD s/p CABG. Cardiology following, recommendations appreciated. Continue ASA, plavix, lipitor, and Coreg. 5. Insulin dependent type 2 DM. Continue with insulin sliding scale. Continue Levemir 20units AM/PM. Continue to monitor accuchecks. 6. Hypertension. Continue Lasix, Coreg, Metolazone, and Entresto. 7. Hyperlipidemia. Continue Lipitor. 8. DVT prophylaxis. SCDS 9. Patient is a full code Case discussed in detail with patient and cardiology Dr. Kenny regarding current diagnosis and treatment plan.
--- NOTE | 2018-08-26 12:14 | RAD ---
Date of service: 08/26/2018 HISTORY: F/U pneumonia and compare COMPARISON: Chest radiograph dated 08/25/2019. TECHNIQUE: Chest PA and lateral FINDINGS: LUNGS: Pulmonary vascular congestion. No focal consolidation. PLEURA: Small bilateral pleural effusions. CARDIOVASCULAR: Prior sternotomy with sternal wires and surgical clips in place. Left subclavian access AICD/pacemaker redemonstrated. Aortic atherosclerotic calcifications. Cardiomediastinal silhouette stably enlarged. OSSEOUS STRUCTURES: Unchanged. VISUALIZED UPPER ABDOMEN: Normal. OTHER FINDINGS: None. IMPRESSION: Slightly decreased pulmonary vascular congestion. Small bilateral pleural effusions.
--- NOTE | 2018-08-26 14:02 | PN ---
DATE: 08/26/2018 REASON FOR CONSULTATION AND FOLLOWUP: Cardiac evaluation, admitted with decompensated congestive heart failure, acute on chronic secondary to systolic dysfunction, history of coronary artery disease, history of CABG, history of mitral valve repair and AICD. The patient is currently on Primacor, diuretics, feels lot better. LABORATORY DATA: WBC 11.2, hemoglobin 9.3, hematocrit 31.2 and platelet 270. BUN 49, creatinine 1.5, yesterday creatinine was 1.7, BUN 34. This note is in addition to dictation by nurse practitioner, Jamee Hernandez. IMPRESSION: A 53-year-old male with a past medical history significant for diabetes, hypertension, hyperlipidemia, history of coronary artery disease, history of non-ST elevation myocardial infarction, history of cardiogenic shock, history of intraaortic balloon, history of multivessel coronary artery bypass grafting and mitral valve repair, history of automatic implantable cardioverter-defibrillator, admitted with decompensated congestive heart failure. RECOMMENDATION: Continue spironolactone. Continue diuretics. Monitor electrolytes closely. Spironolactone reduced to once a day. Continue Entresto. Continue digoxin and monitor blood pressure. Continue carvedilol at 12.5, if the blood pressure is low we will cut down. Continue Entresto. Continue digoxin. Continue IV Lasix. We will repeat chest x-ray. Continue antibiotic. Most likely, this in addition to CHF may be likely right lower lobe pneumonia. We will follow all the chest x-ray. We will follow with you. Discussed with the team taking care of your patient. The patient has 1.5-liter negative fluid balance. This note is addition to dictation by nurse practitioner, Jamee Hernandez. We will repeat the lab in the morning. Follow up chest x-ray when it is done. Thank you, Dr. Lundberg, for providing this opportunity in taking care of the patient, Soraida Wilson. Ashley Kenny MD
[2018-08-26] MEDS: Digoxin 250 mcg (0.25 mg) Tab PO SCH (14:28)
[2018-08-26 22:28] LABS: CREATININE,RANDOM URINE 39 mg/dL; TOTAL PROTEIN,RANDOM URINE 14 mg/L
[2018-08-26 22:33] LABS: PH,URINE 6.5 (4.7-8.0); URINE BILIRUBIN NEGATIVE (NEGATIVE); URINE BLOOD LARGE (NEGATIVE); URINE GLUCOSE (UA) NEGATIVE (NEGATIVE); URINE LEUKOCYTE ESTERASE TRACE Leu/uL (NEGATIVE); URINE PROTEIN NEGATIVE mg/dL (<30 mg/dL); URINE UROBILINOGEN 0.2 E.U./dL (<1 E.U./dL)
[2018-08-26 22:34] LABS: URINE APPEARANCE CLEAR (CLEAR); URINE COLOR YELLOW (YELLOW)
[2018-08-26 22:47] LABS: URINE EPITHELIAL CELLS 0 - 2 /hpf (0-5); URINE WBC 0 - 2 /hpf (0-6)
[2018-08-26 22:48] LABS: URINE BACTERIA NEG /hpf
[2018-08-27] MEDS: Milrinone 20mg/100ml D5W 100 ML IV PRN (04:29)
[2018-08-27 06:12] VITALS: RESP 20; O2SAT 99
[2018-08-27 07:09] LABS: BASO # 0.04 K/mm3 (0.0-2.0); BASO % 0.4 % (0.0-3.0); EOS # 0.3 (0.0-0.7); EOS % 2.4 % (1.5-5.0); GRAN % 74.8 % (50.0-68.0); HEMOGLOBIN 10.1 g/dL (14.0-18.0); LYMPH # 1.7 (1.2-3.4); MEAN CELL VOLUME 82.4 fl (80.0-105.0); MEAN CORPUSCULAR HEMOGLOBIN 25.8 pg (25.0-35.0); MEAN CORPUSCULAR HGB CONC 31.3 g/dl (31.0-37.0); MEAN PLATELET VOLUME 9.1 fl (7.0-11.0); MONO # 0.7 (0.1-0.6); MONO % 6.4 % (1.0-6.0); RBC 3.92 10^6/uL (3.5-6.1); RED CELL DISTRIBUTION WIDTH 14.7 % (11.5-14.5); WHITE BLOOD COUNT 10.7 10^3/uL (4.5-11.0)
--- NOTE | 2018-08-27 07:40 | CP.PCM.PN ---
Subjective - Date & Time of Evaluation Date of Evaluation: 08/27/18 Time of Evaluation: 06:45 - Subjective Subjective: Awake, alert, no distress, feels okay Reason for consultation and follow up: Cardiac evaluation of shortness of breath. History of congestive heart failure, hypertension,coronary artery disease post CABG and mitral valve replacement, AICD. Seen and examined by me and Dr. Kenny Objective - Vital Signs/Intake and Output Vital Signs (last 24 hours): Temp Pulse Resp BP Pulse Ox 98.8 F 80 20 112/65 99 08/27/18 06:00 08/27/18 06:00 08/27/18 06:00 08/27/18 06:00 08/27/18 06:00 Intake and Output: 08/27/18 08/27/18 06:59 18:59 Intake Total 1950 Output Total 1000 Balance 950 - Medications Medications: Current Medications Albuterol/Ipratropium (Duoneb 3 Mg/0.5 Mg (3 Ml) Ud) 3 ml IH [id number] PRN PRN Reason: Shortness of Breath Last Admin: 08/25/18 10:36 Dose: 3 ml Aspirin (Aspirin Chewable) 81 mg PO DAILY [facility] Last Admin: 08/26/18 10:00 Dose: 81 mg Atorvastatin Calcium (Lipitor) 40 mg PO DIN [facility] Last Admin: 08/26/18 17:10 Dose: 40 mg Carvedilol (Coreg) 12.5 mg PO BID [facility] Last Admin: 08/26/18 17:10 Dose: 12.5 mg Clopidogrel Bisulfate (Plavix) 75 mg PO DAILY [facility] Last Admin: 08/26/18 09:09 Dose: 75 mg Dextrose (Dextrose 50% Inj) 0 ml IV STAT PRN; Protocol PRN Reason: Hypoglycemia Protocol Digoxin (Lanoxin) 0.25 mg PO 1400 [facility] Last Admin: 08/26/18 14:28 Dose: 0.25 mg Furosemide (Lasix) 40 mg IVP BID [facility] Last Admin: 08/26/18 17:09 Dose: 40 mg Dextrose (Dextrose 5% In Water 1000 Ml) 1,000 mls @ 0 mls/hr IV .Q0M PRN; Protocol PRN Reason: Hypoglycemia Protocol Milrinone Lactate/Dextrose (Primacor 20mg/100ml D5w) 100 mls @ 4.899 mls/hr IV .[id number] PRN; Protocol PRN Reason: TITRATE PER MD ORDER Last Admin: 08/27/18 04:29 Dose: 0.2 mcg/kg/min, 4.899 mls/hr Insulin Detemir (Levemir) 20 unit SC [facility] Last Admin: 08/26/18 21:39 Dose: 20 units Insulin Human Regular (Humulin R Med) 0 units SC [facility]; Protocol Last Admin: 08/26/18 22:12 Dose: Not Given Metolazone (Zaroxolyn) 10 mg PO DAILY [facility] Last Admin: 08/26/18 09:08 Dose: 10 mg Sacubitril/Valsartan (Entresto 24 Mg-26 Mg Tablet) 1 each PO BID [facility] Last Admin: 08/26/18 17:10 Dose: 1 each Spironolactone (Aldactone) 25 mg PO DAILY [facility] Last Admin: 08/26/18 09:09 Dose: 25 mg - Labs Labs: 08/27/18 06:15 08/26/18 06:45 PT 10.9 SECONDS (9.4-12.5) 08/25/18 04:40 INR 0.95 08/25/18 04:40 APTT 30.1 Seconds (25.1-36.5) 08/25/18 04:40 - Constitutional Appears: Non-toxic, No Acute Distress - Head Exam Head Exam: NORMAL INSPECTION, NORMOCEPHALIC - Eye Exam Eye Exam: Normal appearance Pupil Exam: NORMAL ACCOMODATION - ENT Exam ENT Exam: Mucous Membranes Moist, Normal Exam - Respiratory Exam Respiratory Exam: Decreased Breath Sounds, Clear to Ausculation Bilateral - Cardiovascular Exam Cardiovascular Exam: REGULAR RHYTHM, +S1, +S2 Additional comments: telemetry NSR 60's AICD/PPM - Exam Additional comments: vela catheter - Neurological Exam Neurological Exam: Alert, Awake, Oriented x3 - Psychiatric Exam Psychiatric exam: Normal Affect, Normal Mood - Skin Skin Exam: Dry, Normal Color, Warm Assessment and Plan - Assessment and Plan (Free Text) Assessment: A 53 year old male who came in to the ER due to shortness of breath. History of congestive heart failure, hypertension, STEMI on 07/2015, coronary artery disease emergent angioplasty was done with intra-aortic balloon pump inserted with cardiogenic shock and was transferred to [facility]. Coronary artery disease post CABG x 5 and mitral valve replacement was done. Surgery complicated by open chest and prolonged intubation. Tracheostomy and PEG insertion done. Later decannulated and stabilized. AICD for sudden cardiac , COPD, diabetes mellitus insulin dependent,hyperlipidemia, ex-smoker, 20 pack years quit 3 years ago. Recent cardiac cath showed patent grafts but distal LAD diffusely diseased.Peripheral vascular disease post angiogram and atherectomy of right SFA distal popliteal trunk 04/10/18. Last Echo on 11/20/17 showed moderate to severe LV dysfunction LVEF 25-30 %,mild to moderate MR,Status post MV replacement,m oderate TR, moderate pulmonary hypertension, RVSP 66 mmHg. Chest X ray showed moderate cardiomegaly and severe vascular congestion. Acute on chronic decompensated systolic dysfunction congestive heart failure.On Primacor drip. Lasix to jane.Repeat chest X ray today. Plan: No distress, feels okay Heart rate controlled Blood pressure controlled Continue Primacor drip for the next 24 hours Chest X ray today Clinically improved symptoms On ASA 81 mg daily,Lipitor 40 mg daily, Coreg 12.5 mg BID, Plavix 75 mg daily,Digoxin 0.25 mg daily, Lasix 40 mg BID, Zaroxylyn 10 mg daily,Aldactone 25 mg daily Will discontinue vela catheter Strict I&O Daily weights Control glucose Will follow up Plan and treatment discussed with Dr. Kenny
[2018-08-27 07:48] LABS: ALB/GLOB RATIO 1.3 (1.1-1.8); ALBUMIN 4.1 g/dL (3.0-4.8); ALT/SGPT 21 U/L (7-56); AST/SGOT 26 U/L (17-59); BLOOD UREA NITROGEN 53 mg/dL (7-21); CALCIUM 9.4 mg/dL (8.4-10.5); GFR NON-AFRICAN AMERICAN 53
[2018-08-27] MEDS: Insulin Reg-MEDIUM-Coverage SC SCH ×2 (08:16→13:05)
--- NOTE | 2018-08-27 09:27 | RAD ---
Date of service: 08/27/2018 HISTORY: volume overload? COMPARISON: 08/26/2018 FINDINGS: LUNGS: There is an infiltrate at the right lung base. Decreased vascular congestion PLEURA: No significant pleural effusion identified, no pneumothorax apparent. CARDIOVASCULAR: No aortic atherosclerotic calcification present. Moderate cardiomegaly no pulmonary vascular congestion. OSSEOUS STRUCTURES: Sternal wires VISUALIZED UPPER ABDOMEN: Normal. OTHER FINDINGS: Dual lead pacemaker IMPRESSION: Decreased vascular congestion. Minimal infiltrate at right lung base
[2018-08-27] MEDS: SACUBITRIL 24mg/VALSARTAN 26mg tab PO SCH (11:37)
[2018-08-27 12:28] VITALS: TEMP 98.2
[2018-08-27 12:29] VITALS: PULSE 82
[2018-08-27] MEDS: Digoxin 250 mcg (0.25 mg) Tab PO SCH (13:51)
--- NOTE | 2018-08-27 13:53 | PN ---
DATE: 08/27/2018 REASON FOR CONSULTATION: Cardiac evaluation, shortness of breath, acute decompensated congestive heart failure secondary to systolic dysfunction, status post CABG, status post mitral valve repair, and AICD. This note is in addition to dictated by our nurse practitioner, Jamee Hernandez. The patient is on Primacor. A repeat chest x-ray was done, it shows some improvement in the congestive heart failure. films show small bilateral pleural effusion. RECOMMENDATION: Continue Coreg. Continue aspirin. Continue spironolactone. Continue diuretics. Continue milrinone. Continue Zaroxolyn. We will discontinue milrinone tomorrow and followup chest x-ray. We will follow with you. We will discontinue Carrizales catheter. We will hold Primacor tomorrow. Thank you Dr. Barraza for providing this opportunity in taking care of the patient, Steve Quigley. Ashley Kenny MD
[2018-08-27] MEDS: Insulin Detemir 100 units/ml Vial (Levemir) SC SCH (13:55)
[2018-08-27] MEDS: metOLazone 5 MG TAB PO SCH (13:57)
[2018-08-27 13:58] VITALS: BP 117/72; PULSE 83
--- NOTE | 2018-08-27 15:18 | CP.PCM.PN ---
Subjective - Date & Time of Evaluation Date of Evaluation: 08/27/18 Time of Evaluation: 15:17 - Subjective Subjective: RENAL cc: pat hpi: 53M with a PMH of ckd iii, CHF, COPD, IDDM, HTN, HLD, CAD, s/p CABG, AICD who came to the ER overnight w/ sob. He was having inc work of breath for the last several days worse w/ orthopnea and worse w/ exertion. He denies n/v. He states he has been compliant w/ diuretics. He has a ahx of DM. He is unaware of his ckd b ut looks like cr has been chronically elevated. He was started on diuretics and milrinone. ros: a full detailed ROS is negative except as in my hpi PMH: CKDIII CHF, COPD, IDDM, HTN, HLD, CAD, PSH: s/p CABG, AICD, Mitral valve replacement Family History: Mother 75, DM, "heart problems". Father 49 [place] Social History: Tobacco, 20 py, quit 3 years ago, Alcohol denies, Illicit drugs denies, lives in [place] Allergies: Denies pe: vs as below gen: nad sclera: anicteric op: clear neck: supple no thyromegaly cv: +s1+s2 no rub lungs: reduced at bases abd: soft nt nd no organomegaly ext: trace edema neuro: A+ox3 no asterixis psych: nml affect skin no rash labs and imaging reviewed imp: ARF/ CKD III/ acute on chronic systolic heart failure / hyperkalemia / diabetic kidney disease/ hypertensive kidney disease plan: cr improving today renal function appears to be at baseline likely ckd from htn/dm/chf. k improved chf per cardiology dm per primary tolerating bp medications stable from renal perspective. f/up 1 week renal office Objective - Vital Signs/Intake and Output Vital Signs (last 24 hours): Temp Pulse Resp BP Pulse Ox 98.2 F 82 20 117/72 99 08/27/18 12:00 08/27/18 10:00 08/27/18 06:00 08/27/18 13:52 08/27/18 06:00 Intake and Output: 08/27/18 08/27/18 06:59 18:59 Intake Total 1950 15 Output Total 1000 700 Balance 950 -685 - Medications Medications: Current Medications Albuterol/Ipratropium (Duoneb 3 Mg/0.5 Mg (3 Ml) Ud) 3 ml IH [id number] PRN PRN Reason: Shortness of Breath Last Admin: 08/25/18 10:36 Dose: 3 ml Aspirin (Aspirin Chewable) 81 mg PO DAILY [facility] Last Admin: 08/27/18 11:36 Dose: 81 mg Atorvastatin Calcium (Lipitor) 40 mg PO DIN [facility] Last Admin: 08/26/18 17:10 Dose: 40 mg Carvedilol (Coreg) 12.5 mg PO BID [facility] Last Admin: 08/27/18 11:36 Dose: 12.5 mg Clopidogrel Bisulfate (Plavix) 75 mg PO DAILY [facility] Last Admin: 08/27/18 11:36 Dose: 75 mg Dextrose (Dextrose 50% Inj) 0 ml IV STAT PRN; Protocol PRN Reason: Hypoglycemia Protocol Digoxin (Lanoxin) 0.25 mg PO 1400 [facility] Last Admin: 08/27/18 13:51 Dose: 0.25 mg Furosemide (Lasix) 40 mg IVP BID [facility] Last Admin: 08/27/18 13:52 Dose: 40 mg Dextrose (Dextrose 5% In Water 1000 Ml) 1,000 mls @ 0 mls/hr IV .Q0M PRN; Protocol PRN Reason: Hypoglycemia Protocol Insulin Detemir (Levemir) 20 unit SC [facility] Last Admin: 08/27/18 13:55 Dose: 20 units Insulin Human Regular (Humulin R Med) 0 units SC [facility]; Protocol Last Admin: 08/27/18 13:05 Dose: 1 units Metolazone (Zaroxolyn) 10 mg PO DAILY [facility] Last Admin: 08/27/18 13:57 Dose: 10 mg Sacubitril/Valsartan (Entresto 24 Mg-26 Mg Tablet) 1 each PO BID [facility] Last Admin: 08/27/18 11:37 Dose: 1 each Spironolactone (Aldactone) 25 mg PO DAILY [facility] Last Admin: 08/27/18 11:36 Dose: 25 mg - Labs Labs: 08/27/18 06:15 08/27/18 06:15 PT 10.9 SECONDS (9.4-12.5) 08/25/18 04:40 INR 0.95 08/25/18 04:40 APTT 30.1 Seconds (25.1-36.5) 08/25/18 04:40
--- NOTE | 2018-08-27 15:38 | CP.PCM.DIS ---
Provider - Provider Date of Admission: 08/25/18 05:49 Attending physician: Danielle Lundberg DO Consults: 08/25/18 07:29 Cardiology Consult Routine Comment: Consulting Provider: Ashley Kenny Consulting Physician: Ashley Kenny Reason for Consult: CHF exacerbation; patient known to you 08/25/18 08:25 Nephrology Consult Routine Comment: Consulting Provider: Jody Christopher Consulting Physician: Jody Christopher Reason for Consult: matthew 08/25/18 17:26 Social Work Referral Routine Comment: dc plan Physician Instructions: Reason For Exam: eval 08/25/18 18:20 Case Management Referral Routine Comment: Physician Instructions: Reason For Exam: Reason for Referral: Discharge Planning Diabetic Education Referral Routine Comment: random glucose 299 on admission Physician Instructions: Reason For Exam: eval Inpatient [facility] Core Measures Referral Routine Comment: chf copd pvd Physician Instructions: Reason For Exam: eval Transition In Care/Readmission Reduction Routine Comment: chf copd pvd Physician Instructions: Reason For Exam: eval Time Spent in preparation of Discharge (in minutes): 40 Diagnosis - Discharge Diagnosis (1) Acute decompensated heart failure Status: Acute Priority: High (2) CHF (congestive heart failure) Status: Chronic Priority: High (3) MATTHEW (acute kidney injury) Status: Chronic Priority: High (4) CAD (coronary artery disease) Status: Chronic Priority: High (5) Diabetes mellitus Status: Chronic Priority: High (6) HTN (hypertension) Status: Chronic Priority: High (7) HLD (hyperlipidemia) Status: Chronic Priority: High (8) Acute respiratory distress Status: Acute Priority: High Hospital Course - Lab Results Lab Results: Most Recent Lab Values WBC 10.7 10^3/uL (4.5-11.0) 08/27/18 06:15 RBC 3.92 10^6/uL (3.5-6.1) 08/27/18 06:15 Hgb 10.1 g/dL (14.0-18.0) L 08/27/18 06:15 Hct 32.3 % (42.0-52.0) L 08/27/18 06:15 MCV 82.4 fl (80.0-105.0) 08/27/18 06:15 MCH 25.8 pg (25.0-35.0) 08/27/18 06:15 MCHC 31.3 g/dl (31.0-37.0) 08/27/18 06:15 RDW 14.7 % (11.5-14.5) H 08/27/18 06:15 Plt Count 264 10^3/uL (120.0-450.0) 08/27/18 06:15 MPV 9.1 fl (7.0-11.0) 08/27/18 06:15 Gran % 74.8 % (50.0-68.0) H 08/27/18 06:15 Lymph % (Auto) 16.0 % (22.0-35.0) L 08/27/18 06:15 Moca % (Auto) 6.4 % (1.0-6.0) H 08/27/18 06:15 Eos % (Auto) 2.4 % (1.5-5.0) 08/27/18 06:15 Baso % (Auto) 0.4 % (0.0-3.0) 08/27/18 06:15 Gran # 8.00 (1.4-6.5) H 08/27/18 06:15 Lymph # (Auto) 1.7 (1.2-3.4) 08/27/18 06:15 Moca # (Auto) 0.7 (0.1-0.6) H 08/27/18 06:15 Eos # (Auto) 0.3 (0.0-0.7) 08/27/18 06:15 Baso # (Auto) 0.04 K/mm3 (0.0-2.0) 08/27/18 06:15 PT 10.9 SECONDS (9.4-12.5) 08/25/18 04:40 INR 0.95 08/25/18 04:40 APTT 30.1 Seconds (25.1-36.5) 08/25/18 04:40 pCO2 44 mm/Hg (35-45) 08/25/18 05:45 pO2 421.0 mm/Hg (80-100) H 08/25/18 05:45 HCO3 25.4 mmol/L (21-28) 08/25/18 05:45 ABG pH 7.37 (7.35-7.45) 08/25/18 05:45 ABG Total CO2 26.8 mmol.L (22-28) 08/25/18 05:45 ABG O2 Saturation 99.3 % (95-98) H 08/25/18 05:45 ABG O2 Content 16.0 ML/dl (15-23) 08/25/18 05:45 ABG Base Excess -0.1 mmol/L (-2.0-3.0) 08/25/18 05:45 ABG Hemoglobin 10.9 g/dL (11.7-17.4) L 08/25/18 05:45 ABG Carboxyhemoglobin 1.4 % (0.5-1.5) 08/25/18 05:45 POC ABG HHb (Measured) 0.7 % (0-5) 08/25/18 05:45 ABG Methemoglobin 0.8 % (0.0-3.0) 08/25/18 05:45 ABG O2 Capacity 16.1 mL/dl (16-24) 08/25/18 05:45 Hgb O2 Saturation 97.1 % (95.0-98.0) 08/25/18 05:45 FiO2 100.0 % 08/25/18 05:45 Sodium 137 mmol/L (132-148) 08/27/18 06:15 Potassium 4.2 mmol/L (3.6-5.0) 08/27/18 06:15 Chloride 99 mmol/L (98-107) 08/27/18 06:15 Carbon Dioxide 30 mmol/L (21-33) 08/27/18 06:15 Anion Gap 13 (10-20) 08/27/18 06:15 BUN 53 mg/dL (7-21) H 08/27/18 06:15 Creatinine 1.4 mg/dl (0.8-1.5) 08/27/18 06:15 Est GFR ( Amer) > 60 08/27/18 06:15 Est GFR (Non-Af Amer) 53 08/27/18 06:15 POC Glucose (mg/dL) 188 mg/dL (65-110) H 08/27/18 11:27 Random Glucose 196 mg/dL (70-110) H 08/27/18 06:15 Hemoglobin A1c 9.3 % (4.2-6.5) H 08/26/18 06:45 Calcium 9.4 mg/dL (8.4-10.5) 08/27/18 06:15 Phosphorus 3.7 mg/dL (2.5-4.5) 08/26/18 06:45 Magnesium 2.0 mg/dL (1.7-2.2) 08/26/18 06:45 Total Bilirubin 0.3 mg/dL (0.2-1.3) 08/27/18 06:15 AST 26 U/L (17-59) 08/27/18 06:15 ALT 21 U/L (7-56) 08/27/18 06:15 Alkaline Phosphatase 92 U/L (38-126) 08/27/18 06:15 Lactate Dehydrogenase 534 U/L (333-699) 08/25/18 04:40 Total Creatine Kinase 86 U/L (35-230) 08/25/18 04:40 Troponin I 0.03 ng/mL D 08/25/18 04:40 NT-Pro-B Natriuret Pep 761 pg/mL (0-450) H 08/25/18 04:40 Total Protein 7.2 g/dL (5.8-8.3) 08/27/18 06:15 Albumin 4.1 g/dL (3.0-4.8) 08/27/18 06:15 Globulin 3.1 gm/dL 08/27/18 06:15 Albumin/Globulin Ratio 1.3 (1.1-1.8) 08/27/18 06:15 Triglycerides 248 mg/dL (35-160) H 08/26/18 06:45 Cholesterol 134 mg/dL (130-200) 08/26/18 06:45 LDL Cholesterol Direct 68 mg/dL (0-129) 08/26/18 06:45 HDL Cholesterol 22 mg/dL (29-60) L 08/26/18 06:45 TSH 3rd Generation 0.82 mIU/mL (0.46-4.68) 08/26/18 06:45 Urine Color Yellow (YELLOW) 08/26/18 21:54 Urine Appearance Clear (CLEAR) 08/26/18 21:54 Urine pH 6.5 (4.7-8.0) 08/26/18 21:54 Ur Specific [place] 1.010 (1.005-1.035) 08/26/18 21:54 Urine Protein Negative mg/dL (<30 mg/dL) 08/26/18 21:54 Urine Glucose (UA) Negative mg/dL (NEGATIVE) 08/26/18 21:54 Urine Ketones Negative mg/dL (NEGATIVE) 08/26/18 21:54 Urine Blood Large (NEGATIVE) H 08/26/18 21:54 Urine Nitrate Negative (NEGATIVE) 08/26/18 21:54 Urine Bilirubin Negative (NEGATIVE) 08/26/18 21:54 Urine Urobilinogen 0.2 E.U./dL (<1 E.U./dL) 08/26/18 21:54 Ur Leukocyte Esterase Trace Bishnu/uL (NEGATIVE) H 08/26/18 21:54 Urine RBC 10 - 15 /hpf (0-2) H 08/26/18 21:54 Urine WBC 0 - 2 /hpf (0-6) 08/26/18 21:54 Ur Epithelial Cells 0 - 2 /hpf (0-5) 08/26/18 21:54 Urine Bacteria Neg /hpf (NONE) 08/26/18 21:54 Ur Random Creatinine 39 mg/dL 08/26/18 21:54 U Random Total Protein 14 mg/L 08/26/18 21:54 Digoxin 0.9 ng/mL (0.8-2.0) 08/25/18 04:40 - Hospital Course Hospital Course: Upon Arrival Pt is a 53M with a PMH of CHF, COPD, IDDM, HTN, HLD, CAD, s/p CABG, AICD who presented to the ED complaining of respiratory distress. Pt stated he has been experiencing SOB for the past few days prior to arrival. The SOB was worse with laying flat. Pt exercise tolerace at that time allowed him to climb one flight of stairs. Patient states he woke up with progressively worsening shortness of breath prior to arrival. Reported that he has been taking his medications regularly and has not missed any doses. During Hospital Stay Pt had a leukocytosis which resolved before discharge. Pt was diuresed with lasix and clinically improved. Pt was initially given O2 NC, which he no longer needed by discharge. Pt was seen by cardiology and nephrology. Pt was also found to have an MATTHEW during his admission, pt was gently diuresis. Pt was placed on a milrinone drip. Upon Discharge Pt advised to follow up with his casting assistant, Dr Kenny within the next 3-5 days. Pt advised to follow up with his PMD, Dr Hansen within the next 3-5 days Pt advised to continue his medications: 1. Digoxin 0.25mg 1 tablet at 10AM 2. Clopidogrel 75mg 1 tablet at 10AM 3. Carvedilol 12.5mg 1 tablet at 10AM and 1 tablet at 8PM 4. Spironolactone 25mg 1 tablet at 2PM 5. Pantoprazole 40mg 1 tablet before breakfast 6. Furosemide 40mg 1 tablet at 10AM and 1 tablet at 8PM 7. Metolazone 10mg 1 tablet at 2PM 8. Entresto 24mg/26mg 1 tablet at 10AM and 1 tablet at 8PM 9. Aspirin 81mg 1 tablet at 10AM EVERY OTHER DAY 10. Humalog 30units with breakfast, lunch and inner 11. Levemir 40units at bedtime 12. Rosuvstatin 20mg 1 tablet at bedtime Pt Carvedilol was changed to 12.5mg 1 tablet at 10AM and 1 tablet at 8PM - THIS IS A CHANGE FROM YOUR PREVIOUS DOSE - Date & Time of H&P Date of H&P: 08/27/18 Time of H&P: 08:20 Discharge Exam - Head Exam Head Exam: NORMAL INSPECTION, NORMOCEPHALIC - Eye Exam Eye Exam: EOMI - ENT Exam ENT Exam: Mucous Membranes Moist - Neck Exam Neck exam: Full Rom - Respiratory Exam Respiratory Exam: NORMAL BREATHING PATTERN. absent: Accessory Muscle Use, Decreased Breath Sounds, Wheezes - Cardiovascular Exam Cardiovascular Exam: +S1, +S2. absent: Diastolic murmur - GI/Abdominal Exam GI & Abdominal Exam: Normal Bowel Sounds - Extremities Exam Extremities exam: full ROM - Back Exam Back exam: FULL ROM - Neurological Exam Neurological exam: Alert, Oriented x3 - Psychiatric Exam Psychiatric exam: Normal Affect, Normal Mood - Skin Skin Exam: Dry, Intact, Normal Color, Warm Discharge Plan - Follow Up Plan Condition: STABLE Disposition: HOME/ ROUTINE Instructions: Type 2 Diabetes, Hyperglycemia, Adult (DC), Heart Failure (ED), Heart Failure (DC), Heart Failure (GEN), Pacemaker (DC), Pacemaker (GEN), Pulmonary Edema (DC), Pulmonary Edema (GEN), Ascites (DC), Ascites (GEN) Additional Instructions: Please follow-up with your casting assistant, Dr Kenny within 3-5 days. Please let him know your potassium was mildly elevated - he may want to adjust your Spironolactone as this medication can cause your potassium to rise. Please follow-up with your Primary Medical Doctor, Dr Desi Hansen, within 3-5 days so he may monitor your course. Please let him know your latest HgbA1c was 9.3 so can tailor your diabetes medications, if necessary. Please continue all your normal home medications, these include: 1. Digoxin 0.25mg 1 tablet at 10AM 2. Clopidogrel 75mg 1 tablet at 10AM 3. Carvedilol 12.5mg 1 tablet at 10AM and 1 tablet at 8PM 4. Spironolactone 25mg 1 tablet at 2PM 5. Pantoprazole 40mg 1 tablet before breakfast 6. Furosemide 40mg 1 tablet at 10AM and 1 tablet at 8PM 7. Metolazone 10mg 1 tablet at 2PM 8. Entresto 24mg/26mg 1 tablet at 10AM and 1 tablet at 8PM 9. Aspirin 81mg 1 tablet at 10AM EVERY OTHER DAY 10. Humalog 30units with breakfast, lunch and inner 11. Levemir 40units at bedtime 12. Rosuvstatin 20mg 1 tablet at bedtime Please note that your Carvedilol is now 12.5mg 1 tablet at 10AM and 1 tablet at 8PM - THIS IS A CHANGE FROM YOUR PREVIOUS DOSE If symptoms return, please go to your nearest emergency department. Referrals: Ashley Kenny MD [Staff Provider] - Desi Hansen MD [Family Provider] -
== END 2018-08-27 15:36 | disposition home or self-care (01) | DRG 291 ==
LOC: ED 04:22 → ERH 05:49 → 2RNO 13:48
PROVIDERS: ADMIT Internal Medicine; ATTEND Hospitalist
PROC: 5A09357 Assistance with Respiratory Ventilation, Less than 24 Consecutive Hours, Continuous Positive Airway Pressure (ICD-10-PCS; principal; 2018-08-25)
DX: I13.0 Hypertensive heart and chronic kidney disease with heart failure and stage 1 through stage 4 chronic kidney disease, or unspecified chronic kidney disease (principal); I50.43 Acute on chronic combined systolic (congestive) and diastolic (congestive) heart failure; N17.9 Acute kidney failure, unspecified; N18.3 Chronic kidney disease, stage 3 (moderate); E11.22 Type 2 diabetes mellitus with diabetic chronic kidney disease; E11.51 Type 2 diabetes mellitus with diabetic peripheral angiopathy without gangrene; I25.10 Atherosclerotic heart disease of native coronary artery without angina pectoris; J44.9 Chronic obstructive pulmonary disease, unspecified; I27.20 Pulmonary hypertension, unspecified; I25.5 Ischemic cardiomyopathy; E78.5 Hyperlipidemia, unspecified; E87.5 Hyperkalemia; I36.8 Other nonrheumatic tricuspid valve disorders; Z99.81 Dependence on supplemental oxygen; I25.2 Old myocardial infarction; Z79.4 Long term (current) use of insulin; Z87.891 Personal history of nicotine dependence; Z95.810 Presence of automatic (implantable) cardiac defibrillator; Z95.1 Presence of aortocoronary bypass graft; Z95.2 Presence of prosthetic heart valve; Z95.5 Presence of coronary angioplasty implant and graft